=== PATIENT | female | born 1975 | race Caucasian/White ===

== ENCOUNTER 2021-12-02 11:29 | Emergency (ER) | payer SELFPAY ==
[2021-12-02 11:41] VITALS: BP 197/111; PULSE 84; RESP 18; TEMP 36.1; O2SAT 95; BMI 28.3
--- NOTE | 2021-12-02 12:10 | CT_ITS ---
Final Report Patient: KINGS ALVARADO Facility:?[facility] Patient ID:?[id number] Site Patient ID:?[id number]. Site :?[id number] Study:?CT Head W/O-12/02/2021 12:32:15 PM Ordering Physician:Claudia Hernandez Final Report: INDICATION: Worst headache of life. TECHNIQUE: CT head without contrast. COMPARISON: None. FINDINGS: CSF spaces: Within normal limits for age. Brain parenchyma and extra-axial spaces: The antunez-white differentiation is normal. No sign of mass, hemorrhage, or midline shift. No extra-axial fluid collection. Skull base and calvarium: The visualized paranasal sinuses and mastoid air cells demonstrate no acute or significant findings. The visualized orbits are grossly unremarkable. No skull fractures. IMPRESSION: Unremarkable noncontrast head CT. Please note that all CT scans at this facility use dose modulation, iterative reconstruction, and/or weight-based dosing when appropriate to reduce radiation dose to as low as reasonably achievable. Dictated by Emiliano Newman MD @ 12/02/2021 12:59:20 PM (Electronic Signature)
--- NOTE | 2021-12-02 12:16 | ED_ITS ---
HPI - General Adult General Time Seen by Provider: 12:16 Date Seen: 12/02/21 Chief complaint: Headache/Migraine Stated complaint: Headache, heart attack last week Time Seen by Provider: 12/02/21 11:52 Source: patient Mode of arrival: ambulatory Limitations: no limitations History of Present Illness HPI narrative: Merna is a 46-year-old female past medical history includes tobacco use, status post coronary angiography with stent placement last presents emerged department with with headache. Patient states that she presented to [facility] with chest pain, EKG is normal but serial troponins continued to be elevated. She was sent to [place], her blood pressures were elevated at that time, decision was to do an angiogram, she had 1 stent placed, blood pressures were controlled with Coreg, Imdur and Lisinopril. Patient states her headache started last Tuesday, she denied any headaches when her blood pressures were elevated in the hospital. Patient has not had any cigarettes for about a she would smoke 4-5 cigarettes a day, also had increased stress during the recent event. She denies any nausea vomiting, she denies any visual changes, any chest pain or shortness of breath,, headache is 8/10 constant, at times it improves, last night it progressively got worse throughout the day, she has not taken anything for it, denies any extremity weakness. Patient denies any headaches like this in the past. He does have some tingling and numbness in her left lower extremity but this is chronic due to her chronic lower back pain. Patient states her blood pressure was normal at home. She does have a history of hypothyroidism. Family history noncontributory. She denies any fevers, chills myalgias arthralgias, she denies any COVID exposure. Due to worsening headache presents emergency department. Related Data Home Medications Medication Instructions Recorded Confirmed aspirin 81 mg chewable tablet 81 mg PO DAILY 12/02/21 12/02/21 (Aspirin Childrens) atorvastatin 40 mg tablet 40 mg PO HS 12/02/21 12/02/21 carvedilol 6.25 mg tablet 6.25 mg PO BID 12/02/21 12/02/21 isosorbide mononitrate 30 mg 30 mg PO DAILY 12/02/21 12/02/21 tablet,extended release 24 hr levothyroxine 150 mcg capsule 150 mcg PO DAILY 12/02/21 12/02/21 lisinopril 20 mg tablet 10 mg PO BID 12/02/21 12/02/21 nitroglycerin 0.4 mg sublingual 0.4 mg SUBLINGUAL Q5-15M PRN 12/02/21 12/02/21 tablet ticagrelor 90 mg tablet (Brilinta) 90 mg PO BID 12/02/21 12/02/21 trazodone 100 mg tablet 50 mg PO HS 12/02/21 12/02/21 Allergies Allergy/AdvReac Type Severity Reaction Status Date / Time No Known Drug Allergies Allergy Verified 12/02/21 11:40 Review of Systems Status of ROS: Reports: 10 or more systems reviewed and unremarkable except as noted in History and below PFSH PFS Social History Smoking Status: Former smoker Do you use any of these nicotine containing products: None Second hand tobacco smoke exposure: No How often do you have a drink containing alcohol: never AUDIT-C Alcohol total score: 0 Non-prescribed substance use: denies use service: No Exam Const: Vital Signs, click to edit/add: Vital Signs - 24 hr 12/02/21 11:41 12/02/21 13:45 12/02/21 14:00 Temperature 97 F L Pulse Rate [Left P ulse Oximeter] 84 73 65 Respiratory Rate 18 16 16 Blood Pressure [Le ft Upper Arm] 197/111 H 178/106 H 164/97 H Pulse Oximetry 95 95 95 12/02/21 14:30 Temperature Pulse Rate [Left P ulse Oximeter] 72 Respiratory Rate 16 Blood Pressure [Le ft Upper Arm] 165/91 H Pulse Oximetry 97 Common normals: no apparent distress and oriented x3 Exam limitations: altered mental status General appearance: cooperative Orientation/consciousness: Yes awake, Yes oriented to person, Yes oriented to place and Yes oriented to time HENMT: Common normals: normocephalic, head/scalp atraumatic and hearing grossly normal bilaterally Head and scalp: normal to inspection, normocephalic and atraumatic Face and sinus: normal facial exam and face s ymmetric Throat: posterior oropharynx normal Eye: Common normals: PERRL, EOMs intact bilaterally, conjunctivae normal and normal visual zaragoza by confrontation General eye: normal appearance of both eyes Visual acuity: acuity normal Alignment: alignment normal Conjunctiva: conjunctiva(e) normal Pupil: PERRL Neck & C-Spine: Common normals: full ROM, no lymphadenopathy, supple, no JVD and thyroid normal Thyroid: thyroid normal Cervical spine: cervical ROM normal Lymph: Lymphatic: no lymphadenopathy noted Chest: Common normals: inspection of chest normal Resp: Common normals: normal respiratory effort, no retractions and clear to auscultation bilaterally Auscultation: clear to auscultation bilaterally Cardio: Common normals: no JVD, regular rate, regular rhythm, S1 normal heart sound, S2 normal heart sound and peripheral pulses 2+ throughout Rate: regular rate Rhythm: regular rhythm Heart sounds: S1 normal and S2 normal Peripheral pulses: pulses 2+ throughout GI: Common normals: Normal to inspection, nondistended, normoactive bowel sounds present, soft to palpation and non-tender Palpation: soft Extremity: Common normals: normal to inspection, full ROM and normal capillary refill Neuro: Stephens Coma Scale: document GCS findings Common normals: oriented x3, CN's II-XII intact bilaterally, moves all extremities, no focal motor deficits, no sensory deficits noted and gait normal Sensorium/orientation: awake, oriented to person, oriented to place and oriented to time Psych: Common normals: mental status grossly normal Course Course Hospital Course: AIDET performed. Vitals showed mildly elevated blood pressure, 149/129, no focal deficits on exam, less likely hypertensive emergency or urgency, work up will include EKG, CBC, CMP and CT head without contrast. To give Toradol once time dose of 15 mg and compazine 5 mg IV after imaging done, seems less related to her blood pressure. Differential diagnosis include life-threatening of subar achnoid hemorrhage, meningitis cerebral hemorrhage. Also consideration hypertension urgency or emergency, migraine, headache, cluster headache tension headache [employer] vasculitis, brain lesion, acute closed angle glaucoma, occipital or trigeminal neuralgia and sinusitis. Reevaluation(s) Reevaluation #1: patient updated on her imaging results. Patient to receive the above care. Time: 13:13 Reevaluation #2: Patient was updated on her imaging and lab, EKG, results. EKG showed a normal sinus rhythm bpm 84, no ectopy or acute ST changes. Pr provider. No acute findings, blood pressure continues to improve, headache has improved, will give her additional 5 mg IV Compazine. Time: 14:48 Reevaluation #3: Patient is feeling better after the above care given, blood pressure 167/91, headache has improved, tolerating orals without any difficulty, she has follow- up set up next Tuesday with her primary care provider. Reasons to return were given. All questions answered. Vital Signs Vital signs: Initial Vital Signs Temperature 97 F L 12/02/21 11:41 Temperature Source Temporal Artery Scan 12/02/21 11:41 Pulse Rate 84 12/02/21 11:41 Respiratory Rate 18 12/02/21 11:41 Blood Pressure 197/111 H 12/02/21 11:41 Blood Pressure Mean 139 12/02/21 11:41 Blood Pressure Position Sitting 12/02/21 11:41 Pulse Oximetry 95 12/02/21 11:41 Oxygen Delivery Method 12/02/21 11:41 Vital Signs Temperature 97 F L 12/02/21 11:41 Pulse Rate 84 12/02/21 11:41 Respiratory Rate 18 12/02/21 11:41 Blood Pressure 197/111 H 12/02/21 11:41 Pulse Oximetry 95 12/02/21 11:41 Temperature 97 F L 12/02/21 11:41 Pulse Rate 72 12/02/21 14:30 Respiratory Rate 16 12/02/21 14:30 Blood Pressure 165/91 H 12/02/21 14:30 Pulse Oximetry 97 12/02/21 14:30 Medical Decision Making Lab Data Labs: Lab Results 12/02/21 12/02/21 Range/Units 12:40 12:40 WBC 8.44 (4.50-11.00) K/uL RBC 3.45 L (4.00-5.20) m/uL Hgb 12.5 (12.0-16.0) gm/dL Hct 37.7 (33.0-51.0) % MCV 109 H (80-100) fL MCH 36 H (26-34) pg MCHC 33 (32-36) gm/dL RDW Coeff of Beth 14.4 (11.5-15.5) % Plt Count 338 (140-440) K/uL Neut % (Auto) 80.6 H (42.0-72.0) % Lymph % (Auto) 8.3 L (20-44) % Tompkins % (Auto) 9.2 (0.0-11.0) % Eos % (Auto) 1.1 (0.0-7.0) % Baso % (Auto) 0.4 (0.0-3.0) % Neut # (Auto) 6.80 (1.7-7.0) K/uL Lymph # (Auto) 0.70 L (0.90-2.90) K/uL Tompkins # (Auto) 0.80 (0.00-0.90) K/UL Eos # (Auto) 0.09 (0.00-0.50) K/uL Baso # (Auto) 0.03 (0.00-0.30) K/uL Abs Immat Gran (auto) 0.03 (0.00-0.30) K/uL Sodium 137 (135-149) mmol/L Potassium 3.4 L (3.6-5.1) mmol/L Chloride 103 (96-114) mmol/L Carbon Dioxide 28 (20-32) mmol/L BUN 6 (5-24) mg/dL Creatinine 0.6 (0.5-1.5) mg/dL Estimated Creat Clear 86.53 Glucose 121 H (60-115) mg/dL Calcium 9.0 (8.4-10.6) mg/dL Total Bilirubin 0.6 (0.1-1.5) mg/dL AST 25 (12-35) U/L ALT 16 (4-35) U/L Alkaline Phosphatase 107 (40-150) U/L Total Protein 6.9 (6.0-8.3) g/dL Albumin 4.1 (3.3-5.0) g/dL Imaging Data CT scan - head: Radiologist's impression: Unremarkable head CT. Discharge Plan Discharge Clinical Impression: Headache, Elevated blood pressure reading, H/O heart artery stent Patient Disposition: Home, Self-Care Condition: Improved Instructions: Acute Headache (ED) Additional Instructions: Take tylenol per bottle instructions for headache pain. Rest and hydrate. To follow as scheduled with primary next Tuesday. Return if worsening symptoms. Activity Level: No Restrictions Activity Detail: No change. Discharge Diet: Regular Prescriptions: No Action aspirin [Aspirin Childrens] 81 mg tablet,chewable 81 mg PO DAILY 0RF atorvastatin 40 mg tablet 40 mg PO HS 0RF Brilinta 90 mg tablet 90 mg PO BID 0RF carvedilol 6.25 mg tablet 6.25 mg PO BID 0RF Rx Instructions: must administer with a meal/food isosorbide mononitrate 30 mg tablet extended release 24 hr 30 mg PO DAILY 0RF nitroglycerin 0.4 mg tablet, sublingual 0.4 mg sublingual Q5-15M PRN0RF Rx Instructions: do not exceed 3 doses per episode lisinopril 20 mg tablet 10 mg PO BID 0RF levothyroxine 150 mcg capsule 150 mcg PO DAILY 0RF trazodone 100 mg tablet 50 mg PO HS 0RF Stand Alone Forms: [facility] Info Instructions
[2021-12-02 12:58] LABS: Slide Review Reflex No
[2021-12-02 12:59] LABS: Basophils Absolute Auto 0.03 K/uL (0.00-0.30); Basophils Percent Auto 0.4 % (0.0-3.0); Eosinophils Absolute Auto 0.09 K/uL (0.00-0.50); Eosinophils Percent Auto 1.1 % (0.0-7.0); Hematocrit 37.7 % (33.0-51.0); Hemoglobin* 12.5 gm/dL (12.0-16.0); Immature Granulocytes Abs Auto 0.03 K/uL (0.00-0.30); Lymphocytes Percent Auto 8.3 % (20-44); Mean Corpuscular HGB Conc 33 gm/dL (32-36); Mean Corpuscular Hemoglobin 36 pg (26-34); Mean Corpuscular Volume 109 fL (80-100); Monocytes Percent Auto 9.2 % (0.0-11.0); Neutrophils Percent Auto 80.6 % (42.0-72.0); Platelet Count* 338 K/uL (140-440); RDW Coefficient of Variation % 14.4 % (11.5-15.5); Red Blood Count 3.45 m/uL (4.00-5.20); White Blood Count* 8.44 K/uL (4.50-11.00)
[2021-12-02] MEDS: KETOROLAC 15 MG/ML inj IVP (13:08)
[2021-12-02 13:13] LABS: Albumin* 4.1 g/dL (3.3-5.0); Chloride* 103 mmol/L (96-114); Sodium* 137 mmol/L (135-149)
[2021-12-02] MEDS: PROCHLORPERAZINE 5 MG/ML VIAL IV ×2 (13:13→14:30)
[2021-12-02 13:14] LABS: Potassium* 3.4 mmol/L (3.6-5.1)
[2021-12-02 13:16] LABS: Alanine Aminotransferase* 16 U/L (4-35); Alkaline Phosphatase* 107 U/L (40-150); Aspartate Amino Transferase* 25 U/L (12-35); Bilirubin Total* 0.6 mg/dL (0.1-1.5); Blood Urea Nitrogen* 6 mg/dL (5-24); Carbon Dioxide* 28 mmol/L (20-32); Creatinine* 0.6 mg/dL (0.5-1.5); Est. Creatinine Clearance* 86.53; Estimated Glomerular Filt Rate 110.65; Glucose* 121 mg/dL (60-115); Total Protein* 6.9 g/dL (6.0-8.3)
[2021-12-02 13:45] VITALS: BP 178/106; PULSE 73; RESP 16; O2SAT 95
--- NOTE | 2021-12-02 13:48 | ED.NURSE ---
Patient up to restroom ambulatory, steady on feet. Continues to rate pain 6-12/13. BP 178/106. Dr. Cornejo notified.
[2021-12-02 14:00] VITALS: BP 164/97; PULSE 65; RESP 16; O2SAT 95
[2021-12-02 14:30] VITALS: BP 165/91; PULSE 72; RESP 16; O2SAT 97
== END 2021-12-02 15:01 | disposition home or self-care (01) ==
PROVIDERS: Emergency Provider Student in an Organized Health Care Education/Training Program
DX: R51.9 Headache, unspecified (principal); R03.0 Elevated blood-pressure reading, without diagnosis of hypertension
CPT/HCPCS: 96365; 96375; 96376; 36415; 70450; 80053; 85025; 93005; 99283; 99284; J0780; J1885

== ENCOUNTER 2022-06-02 14:21 | Emergency (ER) | payer OTHER, SELFPAY ==
[2022-06-02 14:31] VITALS: BP 191/111; PULSE 72; RESP 20; TEMP 36.8; O2SAT 98; BMI 28.8
--- NOTE | 2022-06-02 14:41 | ED_ITS ---
HPI - General Adult General Time Seen by Provider: 14:41 Date Seen: 06/02/22 Chief complaint: Extremity Pain/Injury, Lower Stated complaint: Foot Injury Time Seen by Provider: 06/02/22 14:32 Source: patient and RN notes reviewed Mode of arrival: ambulatory Limitations: no limitations History of Present Illness HPI narrative: Patient is coming in with left foot/ankle pain. On she had her left leg underneath her, foot had fallen asleep. She got up and stepped down and had some pain. It is hurting to walk more on the outside of the ankle and the foot area. She can walk on it but again there was pain. No numbness tingling. She has noted bruising. Related Data Home Medications Medication Instructions Recorded Confirmed aspirin 81 mg chewable tablet 81 mg PO DAILY 12/02/21 12/02/21 (Aspirin Childrens) atorvastatin 40 mg tablet 40 mg PO HS 12/02/21 12/02/21 carvedilol 6.25 mg tablet 6.25 mg PO BID 12/02/21 12/02/21 isosorbide mononitrate 30 mg 30 mg PO DAILY 12/02/21 12/02/21 tablet,extended release 24 hr levothyroxine 150 mcg capsule 150 mcg PO DAILY 12/02/21 12/02/21 lisinopril 20 mg tablet 10 mg PO BID 12/02/21 12/02/21 nitroglycerin 0.4 mg sublingual 0.4 mg sublingual Q5-15M PRN 12/02/21 12/02/21 tablet ticagrelor 90 mg tablet (Brilinta) 90 mg PO BID 12/02/21 12/02/21 trazodone 100 mg tablet 50 mg PO HS 12/02/21 12/02/21 Allergies Allergy/AdvReac Type Severity Reaction Status Date / Time No Known Drug Allergies Allergy Verified 06/02/22 14:30 Review of Systems Narrative: As per HPI PFSH PFSH Social History Smoking Status: Former smoker Do you use any of these nicotine containing products: None Second hand tobacco smoke exposure: No How often do you have a drink containing alcohol: never AUDIT-C Alcohol total score: 0 Non-prescribed substance use: denies use service: No Exam Const: Vital Signs, click to edit/add: Vital Signs - 24 hr 06/02/22 14:31 06/02/22 14:45 06/02/22 15:40 Temperature 98.2 F Pulse Rate [Pulse Oximeter] 72 73 Respiratory Rate 20 Blood Pressure [Le ft Upper Arm] 191/111 H 169/89 H 198/121 H Pulse Oximetry 98 95 Oxygen Delivery Me thod Room Air Room Air Documenting provider has reviewed patient's vital signs: yes Common normals: no apparent distress, average body habitus, oriented x3, no limitations, healthy appearing, alert and well nourished Other: Patient has obvious ecchymosis around the base of the heel medial and laterally. Her Achilles is intact and has reflex with squeezing of the calf. She is nontender over the medial malleolus as well as the 5th metatarsal. She has pain over the distal lateral malleolus. Ankle mortise is intact, she has a good peripheral pulse, normal distal sensation. Neuro: Common normals: oriented x3 Sensorium/orientation: alert Course Course Hospital Course: Will obtain left ankle x-ray. Reevaluation(s) Reevaluation #1: Reviewed with patient no acute fracture. Reviewed management options. We will try the gel splint. She will do a physical therapy referral. Time: 17:00 Vital Signs Vital signs: Initial Vital Signs Temperature 98.2 F 06/02/22 14:31 Temperature Source Temporal Artery Scan 06/02/22 14:31 Pulse Rate 72 06/02/22 14:31 Pulse Rhythm 06/02/22 14:31 Respiratory Rate 20 06/02/22 14:31 Blood Pressure 191/111 H 06/02/22 14:31 Blood Pressure Mean 137 06/02/22 14:31 Blood Pressure Position Supine 06/02/22 14:31 Pulse Oximetry 98 06/02/22 14:31 Oxygen Delivery Method 06/02/22 14:31 Vital Signs Temperature 98.2 F 06/02/22 14:31 Pulse Rate 72 06/02/22 14:31 Respiratory Rate 20 06/02/22 14:31 Blood Pressure 191/111 H 06/02/22 14:31 Pulse Oximetry 98 06/02/22 14:31 Oxygen Delivery Method 06/02/22 14:31 Temperature 98.2 F 06/02/22 14:31 Pulse Rate 73 06/02/22 15:40 Respiratory Rate 20 06/02/22 14:31 Blood Pressure 198/121 H 06/02/22 15:40 Pulse Oximetry 95 06/02/22 15:40 Oxygen Delivery Method 06/02/22 15:40 Medical Decision Making Imaging Data X-ray left ankle: Attestation: I have reviewed the pertinent imaging results. My impression: I do not see any acute fracture on my preliminary review. Radiologist's impression: Patient: KINGS ALVARADO Facility:?[facility] Patient ID:?[id number] Site Patient ID:?[id number]. Site :?[id number] Study:?XRay Extremity Left ANKLE 3 VIEW-06/02/2022 3:08:06 PM Ordering Physician:?Batsheva Tidwell Final Report: Indication: Lateral ankle pain. Technique: Left ankle 3 views. Comparison: None. Findings: Bones: No acute fracture. Normal alignment. No aggressive osseous lesion.. Joint spaces: Unremarkable. Soft tissues: Soft tissue swelling about the ankle, particularly the lateral malleolus. Impression: Soft tissue swelling about the ankle, particularly the lateral malleolus. No acute fracture. Dictated by Reginald Hinton MD @ 06/02/2022 4:03:29 PM (Electronic Signature) Critical Care Time Critical Care Time Critical Care Time: No Discharge Plan Discharge Clinical Impression: Sprain of lateral ligament of ankle joint Condition: Stable Instructions: Ankle Sprain (ED) Additional Instructions: Use splint as needed for comfort. Do recommend elevating and icing this ankle for the next 3-5 days, until you see the bruising and swelling resolving. Can use light Mario wrap for compression as well. Have provided a referral for physical therapy for you, do recommend this. If you are not improving over the next few weeks with these conservative modalities, have concerns of increased pain with weight-bearing, do recommend further evaluation with Orthopedics, can be referred from your primary care provider. Activity Level: Activity as Tolerated Prescriptions: No Action aspirin [Aspirin Childrens] 81 mg tablet,chewable 81 mg PO DAILY atorvastatin 40 mg tablet 40 mg PO HS Brilinta 90 mg tablet 90 mg PO BID carvedilol 6.25 mg tablet 6.25 mg PO BID Rx Instructions: must administer with a meal/food isosorbide mononitrate 30 mg tablet extended release 24 hr 30 mg PO DAILY nitroglycerin 0.4 mg tablet, sublingual 0.4 mg sublingual Q5-15M PRN Rx Instructions: do not exceed 3 doses per episode lisinopril 20 mg tablet 10 mg PO BID levothyroxine 150 mcg capsule 150 mcg PO DAILY trazodone 100 mg tablet 50 mg PO HS Follow Up/Referrals: Provider,Not a Local [Primary Care Provider] - Stand Alone Forms: [facility] Info Instructions
[2022-06-02 14:45] VITALS: BP 169/89
--- NOTE | 2022-06-02 14:48 | CRLHL7_ITS ---
For Patients: As a result of the Century Cures Act, medical imaging exams and procedure reports are released immediately into your electronic medical record. You may view this report before your referring provider. If you have questions, please contact your health care provider. Indication: Lateral ankle pain. Technique: Left ankle 3 views. Comparison: None. Findings: Bones: No acute fracture. Normal alignment. No aggressive osseous lesion.. Joint spaces: Unremarkable. Soft tissues: Soft tissue swelling about the ankle, particularly the lateral malleolus. Impression: Soft tissue swelling about the ankle, particularly the lateral malleolus. No acute fracture. Dictated by Reginald Hinton MD @ 06/02/2022 4:03:29 PM (Electronically Signed)
[2022-06-02 15:40] VITALS: BP 198/121; PULSE 73; O2SAT 95
== END 2022-06-02 17:20 | disposition home or self-care (01) ==
PROVIDERS: Emergency Provider Family Medicine
DX: S93.492A Sprain of other ligament of left ankle, initial encounter (principal); X58.XXXA Exposure to other specified factors, initial encounter; Y93.9 Activity, unspecified; Y92.9 Unspecified place or not applicable; Y99.9 Unspecified external cause status
CPT/HCPCS: 73610; 99283

== ENCOUNTER 2022-06-21 22:34 | Emergency (ER) | payer OTHER, SELFPAY ==
[2022-06-21] VITALS (9 sets, daily range): BP systolic 169–220; BP diastolic 89–144; PULSE 54–78; RESP 16–18; TEMP 36.9; O2SAT 94–99; BMI 30.2
--- NOTE | 2022-06-21 23:04 | ED.GENADULT ---
HPI - General Adult General Chief complaint: Neck Injury/Pain Stated complaint: Chest Tightness,Left Side Pain in Neck Time Seen by Provider: 06/21/22 22:35 History of Present Illness HPI narrative: This 46-year-old female comes in reporting some left-sided neck pain that goes down into her shoulder and into her arm. She also has some slight chest discomfort. These symptoms started yesterday. She states that the symptoms seem to come and go. It is not related to exertion or strenuous activity. She denies having any nausea, vomiting, shortness of breath, or diaphoresis. She states that she had 2 stents placed about 6 months ago and since then has not had any symptoms. Her symptoms today seem a little similar but also different compared to the coronary arteries symptoms that she had about 6 months ago. She is taking her medications as prescribed. She did take a baby aspirin this morning. She took a nitroglycerin tablet last night and states that it did not seem to help her symptoms. Related Data Home Medications Medication Instructions Recorded Confirmed aspirin 81 mg chewable tablet 81 mg PO DAILY 12/02/21 06/21/22 (Aspirin Childrens) atorvastatin 40 mg tablet 40 mg PO HS 12/02/21 06/21/22 levothyroxine 150 mcg capsule 150 mcg PO DAILY 12/02/21 06/21/22 lisinopril 20 mg tablet 10 mg PO BID 12/02/21 06/21/22 nitroglycerin 0.4 mg sublingual 0.4 mg sublingual Q5-15M PRN 12/02/21 06/21/22 tablet carvedilol 12.5 mg tablet 12.5 mg PO BID 06/21/22 06/21/22 Previous Rx's Medication Instructions Recorded methylprednisolone 4 mg tablets in See Rx Instructions PO .COMPLEX 06/21/22 a dose pack (Medrol (Joaquim)) #21 ea Allergies Allergy/AdvReac Type Severity Reaction Status Date / Time No Known Drug Allergies Allergy Verified 06/21/22 22:47 Review of Systems Status of ROS: Reports: 10 or more systems reviewed and unremarkable except as noted in History and below Narrative: Constitutional: No fevers, no weight gain or loss. Eyes: No discharge. No vision changes. HENT: No congestion, no sore throat, no ear pain. Cardiovascular: No palpitations. Chest discomfort but more pronounced in the left neck and down into the left arm. Respiratory: No shortness of breath, no wheezes, no cough. Gastrointestinal: No abdominal pain, no vomiting, no diarrhea. Genitourinary: No dysuria, no hematuria. Musculoskeletal: Normal range of motion. Skin: No rashes, no pruritis. Neurological: No dizziness, weakness, sensory change, speech change. Endo/Heme/Allergies: No bruising or bleeding. No polydipsia. Pysch: no suicidality, no anxiety, no insomnia. All other systems reviewed and are negative. [facility] Medical History (Updated 06/21/22 @ 23:48 by Vasiliy Sung MD) Erosion of transobturator mid-urethral sling Surgical History (Updated 06/21/22 @ 23:04 by Tani Reynolds RN) History of cholecystectomy History of tubal ligation Social History Smoking Status: Current every day smoker Do you use any of these nicotine containing products: None Second hand tobacco smoke exposure: No How often do you have a drink containing alcohol: never How often do you have six or more drinks on one occasion: Never AUDIT-C Alcohol total score: 0 Non-prescribed substance use: denies use service: No Exam Narrative: Exam Narrative: Constitutional: Well-developed, well-nourished, no acute distress. HEENT: Normocephalic, atraumatic. Neck: Normal range of motion. Nontender. Supple. Heart: Regular. No murmurs. Normal rate. Intact distal pulses. Lungs: Clear to auscultation. No chest discomfort. No wheezes, rhonchi, or rales. Abdomen: Normal bowel sounds. Nontender. No rebound tenderness. Genitalia: Deferred. Back: No midline tenderness. Normal range of motion. Extremities: Normal range of motion. No injury. Skin: Intact. No rash. Warm. No erythema or pallor. Neurologic: No altered sensation. No weakness. Alert and oriented. Spurling's test is positive when extending her head and rotating to the left there is pain and tingling going down her arm. Psychiatric: No suicidality. No anxiety or depression. No insomnia. Nursing notes and vitals signs are reviewed. Const: Vital Signs, click to edit/add: Vital Signs - 24 hr 06/21/22 22:43 06/21/22 23:00 06/21/22 23:12 Temperature 98.5 F Pulse Rate Pulse Rate [Right Pulse Oximeter] 78 63 Respiratory Rate 18 16 Blood Pressure Blood Pressure [Ri ght Upper Arm] 220/144 H 215/108 H Pulse Oximetry 99 95 95 Oxygen Delivery Me thod Room Air Room Air 06/21/22 23:17 06/21/22 23:20 06/21/22 23:22 Temperature Pulse Rate 66 59 L 64 Pulse Rate [Right Pulse Oximeter] Respiratory Rate Blood Pressure 169/89 H Blood Pressure [Ri ght Upper Arm] Pulse Oximetry 95 94 96 Oxygen Delivery Me thod 06/21/22 23:23 06/21/22 23:40 06/21/22 23:42 Temperature Pulse Rate 62 54 L 55 L Pulse Rate [Right Pulse Oximeter] Respiratory Rate Blood Pressure 177/98 H Blood Pressure [Ri ght Upper Arm] Pulse Oximetry 94 95 94 Oxygen Delivery Me thod Course Vital Signs Vital signs: Initial Vital Signs Temperature 98.5 F 06/21/22 22:43 Temperature Source Temporal Artery Scan 06/21/22 22:43 Pulse Rate 78 06/21/22 22:43 Respiratory Rate 18 06/21/22 22:43 Blood Pressure 220/144 H 06/21/22 22:43 Blood Pressure Mean 169 06/21/22 22:43 Blood Pressure Position Sitting 06/21/22 22:43 Pulse Oximetry 99 06/21/22 22:43 Oxygen Delivery Method 06/21/22 22:43 Vital Signs Temperature 98.5 F 06/21/22 22:43 Pulse Rate 78 06/21/22 22:43 Respiratory Rate 18 06/21/22 22:43 Blood Pressure 220/144 H 06/21/22 22:43 Pulse Oximetry 99 06/21/22 22:43 Oxygen Delivery Method 06/21/22 22:43 Temperature 98.5 F 06/21/22 22:43 Pulse Rate 55 L 06/21/22 23:42 Respiratory Rate 16 06/21/22 23:12 Blood Pressure 177/98 H 06/21/22 23:42 Pulse Oximetry 94 06/21/22 23:42 Oxygen Delivery Method 06/21/22 23:12 Medical Decision Making MDM Narrative Medical decision making narrative: This patient comes in reporting left-sided neck pain radiating down her left arm. She has a history of coronary artery disease and did have a couple stents placed about 6 months ago. She has been doing well since then. She comes in with concern that she may be having some further event with her heart. Her EKG and lab results all returned with normal findings. She does not have typical associated symptoms suggesting coronary artery syndrome. Her Spurling's test is suggestive of a cervical radiculopathy with pain radiating down into her arm. She is okay to return home and did receive a prescription for Medrol Dosepak. She was reassured to see the normal results in her lab studies and EKG. Lab Data Labs: Lab Results 06/21/22 06/21/22 06/21/22 Range/Units 23:00 23:00 23:02 WBC 9.10 (4.50-11.00) K/uL RBC 4.01 (4.00-5.20) m/uL Hgb 13.1 (12.0-16.0) gm/dL Hct 39.7 (33.0-51.0) % MCV 99 (80-100) fL MCH 33 (26-34) pg MCHC 33 (32-36) gm/dL RDW Coeff of Beth 13.2 (11.5-15.5) % Plt Count 254 (140-440) K/uL Neut % (Auto) 67.6 (42.0-72.0) % Lymph % (Auto) 21.5 (20-44) % Gillespie % (Auto) 9.6 (0.0-11.0) % Eos % (Auto) 0.9 (0.0-7.0) % Baso % (Auto) 0.3 (0.0-3.0) % Neut # (Auto) 6.15 (1.7-7.0) K/uL Lymph # (Auto) 1.96 (0.90-2.90) K/uL Gillespie # (Auto) 0.90 (0.00-0.90) K/UL Eos # (Auto) 0.08 (0.00-0.50) K/uL Baso # (Auto) 0.03 (0.00-0.30) K/uL Sodium 136 (135-149) mmol/L Potassium 3.9 (3.6-5.1) mmol/L Chloride 103 (96-114) mmol/L Carbon Dioxide 27 (20-32) mmol/L BUN 15 (5-24) mg/dL Creatinine 1.0 (0.5-1.5) mg/dL Estimated Creat Clear 51.92 Estimated GFR 69 ml/min Calcium 9.0 (8.4-10.6) mg/dL POC Troponin I 0.01 (0.01-0.04) ng/ml ECG Data Attestation: I personally reviewed and interpreted this ECG as follows: Interpretation: Normal sinus rhythm. Rate is 65 beats per minute. There are no ST or T-wave abnormalities. Discharge Plan Discharge Clinical Impression: Cervical radiculopathy Patient Disposition: Home, Self-Care Condition: Stable Additional Instructions: Take medication as prescribed. Follow up with MD or return if worsening. Prescriptions: New methylprednisolone [Medrol (Joaquim)] 4 mg tablets,dose pack See Rx Instructions .ROUTE .COMPLEX Qty: 21 0RF Rx Instructions: orally per package directions No Action carvedilol 12.5 mg tablet 12.5 mg PO BID aspirin [Aspirin Childrens] 81 mg tablet,chewable 81 mg PO DAILY atorvastatin 40 mg tablet 40 mg PO HS nitroglycerin 0.4 mg tablet, sublingual 0.4 mg sublingual Q5-15M PRN Rx Instructions: do not exceed 3 doses per episode lisinopril 20 mg tablet 10 mg PO BID levothyroxine 150 mcg capsule 150 mcg PO DAILY Follow Up/Referrals: Blu Ray PA-C [Primary Care Provider] - Stand Alone Forms: [employer] Info Instructions
[2022-06-21] MEDS: ASPIRIN 81 MG TAB.CHEW 324 MG PO (23:10)
[2022-06-21 23:12] LABS: Basophils Absolute Auto 0.03 K/uL (0.00-0.30); Basophils Percent Auto 0.3 % (0.0-3.0); Eosinophils Absolute Auto 0.08 K/uL (0.00-0.50); Eosinophils Percent Auto 0.9 % (0.0-7.0); Hematocrit 39.7 % (33.0-51.0); Hemoglobin* 13.1 gm/dL (12.0-16.0); Immature Granulocytes Abs Auto 0.01 K/uL (0.00-0.30); Immature Granulocytes Pct Auto 0.1 %; Lymphocytes Absolute Auto 1.96 K/uL (0.90-2.90); Lymphocytes Percent Auto 21.5 % (20-44); Mean Corpuscular HGB Conc 33 gm/dL (32-36); Mean Corpuscular Hemoglobin 33 pg (26-34); Mean Corpuscular Volume 99 fL (80-100); Monocytes Percent Auto 9.6 % (0.0-11.0); Neutrophils Absolute Auto 6.15 K/uL (1.7-7.0); Neutrophils Percent Auto 67.6 % (42.0-72.0); Platelet Count* 254 K/uL (140-440); RDW Coefficient of Variation % 13.2 % (11.5-15.5); Red Blood Count 4.01 m/uL (4.00-5.20)
[2022-06-21 23:16] LABS: Troponin, Point-of-Care* 0.01 ng/ml (0.01-0.04)
[2022-06-21 23:25] LABS: Chloride* 103 mmol/L (96-114); Potassium* 3.9 mmol/L (3.6-5.1); Sodium* 136 mmol/L (135-149)
[2022-06-21 23:28] LABS: Blood Urea Nitrogen* 15 mg/dL (5-24); Carbon Dioxide* 27 mmol/L (20-32); Est. Creatinine Clearance* 51.92; Estimated Glomerular Filt Rate 69 ml/min
[2022-06-21 23:39] LABS: Glucose* 106 mg/dL (60-115)
[2022-06-21 23:40] LABS: Slide Review Reflex No
== END 2022-06-21 23:58 | disposition home or self-care (01) ==
PROVIDERS: Emergency Provider Emergency Medicine Emergency Medical Services; PCP Physician Assistant
DX: M54.12 Radiculopathy, cervical region (principal)
CPT/HCPCS: 36415; 80048; 84484; 85025; 93005; 94761; 99284; 99285; A9270

== ENCOUNTER 2024-04-30 09:40 | Emergency (ER) | payer OTHER, SELFPAY ==
[2024-04-30] VITALS (7 sets, daily range): BP systolic 147–173; BP diastolic 97–122; PULSE 46–77; RESP 20–22; TEMP 35.6; O2SAT 96–100; BMI 26.1
--- NOTE | 2024-04-30 10:31 | ED_ITS ---
HPI - General Adult General Chief complaint: Shortness of Breath/Dyspnea Stated complaint: Trouble breathing, had prior heart attack Time Seen by Provider: 04/30/24 10:15 Source: patient Mode of arrival: ambulatory Limitations: no limitations History of Present Illness HPI narrative: 48-year-old female coming in today complaining of back pain. She states that she was at her computer working today when she turned to the side and felt a pop in her mid left back. She states that it is very painful now and it is hard to take deep breaths. She denies central chest pain. She denies any recent illness, no coughing or fevers. Patient is concerned she is having a heart attack. Did have a heart attack in 2021, felt different at that time. The patient states that she has quit smoking. Patient states that she had 3 cortisone injections last week: 1 in her lower back and two in her hips. Related Data Home Medications ?Medication ?Instructions ?Recorded ?Confirmed aspirin 81 mg chewable tablet 81 mg PO DAILY 12/02/21 04/30/24 (Aspirin Childrens) atorvastatin 40 mg tablet 40 mg PO HS 12/02/21 04/30/24 levothyroxine 150 mcg capsule 150 mcg PO DAILY 12/02/21 04/30/24 lisinopril 20 mg tablet 10 mg PO BID 12/02/21 04/30/24 nitroglycerin 0.4 mg sublingual 0.4 mg sublingual Q5-15M PRN 12/02/21 06/21/22 tablet carvedilol 12.5 mg tablet 12.5 mg PO BID 06/21/22 04/30/24 trazodone 100 mg tablet 100 mg PO QPM 04/30/24 04/30/24 Previous Rx's ?Medication ?Instructions ?Recorded methylprednisolone 4 mg tablets in See Rx Instructions PO .COMPLEX 06/21/22 a dose pack (Medrol (Joaquim)) #21 ea Allergies Allergy/AdvReac Type Severity Reaction Status Date / Time No Known Drug Allergies Allergy Verified 04/30/24 10:03 Review of Systems Status of ROS: Reports: 10 or more systems reviewed and unremarkable except as noted in History and below [facility] Medical History Erosion of transobturator mid-urethral sling ?T83.712A - Erosion of implanted urethral mesh to surrounding organ or tissue, initial encounter (ICD-10) Surgical History History of cholecystectomy ?Z90.49 - Acquired absence of other specified parts of digestive tract (ICD- 10) History of tubal ligation ?Z98.51 - Tubal ligation status (ICD-10) Social History Smoking Status: Former smoker Do you use any of these nicotine containing products: None Second hand tobacco smoke exposure: No How often do you have a drink containing alcohol: never How often do you have six or more drinks on one occasion: Never AUDIT-C Alcohol total score: 0 Non-prescribed substance use: denies use service: No Exam Narrative: Exam Narrative: Well-nourished well-developed patient in no acute distress but appears unc omfortable. Alert and oriented. Answers questions appropriately. Mood and affect are appropriate. Thoughts are goal oriented and rational. No tangential or magical thinking noted. Patient speaks in full sentences without needing to catch her breath. HEENT: Normocephalic atraumatic. Pupils are equally round reactive to light. Extraocular muscles are intact. Conjunctivae are moist without any icterus noted. Moist mucous membranes. Neck is supple. Cardiovascular: Heart is regular rate and rhythm S1 and S2 are present without any murmurs. Lungs: Clear to auscultation bilaterally no wheezes rhonchi or rales are appreciated. Deep breathing causes discomfort in the left mid back. No tenderness to palpation of the anterior chest wall. Abdomen: Soft and nontender nondistended with normal bowel sounds. Extremities: Bilateral lower extremities are without edema. Skin: Warm, dry, intact. Back: Normal appearance. No obvious swelling, erythema. No pain with palpation of the cervical, thoracic or lumbar spine. She has tenderness on the left paraspinal musculature of the thoracic spine. No point tenderness over the ribs. Const: Vital Signs, click to edit/add: Vital Signs - 24 hr 04/30/24 09:56 04/30/24 10:30 04/30/24 10:47 Temperature 96.0 F L Pulse Rate 73 Pulse Rate [Pulse Oximeter] 77 48 L Respiratory Rate 22 20 Blood Pressure [Le ft Upper Arm] 173/122 H 150/104 H Pulse Oximetry 98 99 100 Oxygen Delivery Me thod Room Air Room Air Course Course ED Course: Because of her concerns about having a heart attack in EKG was done in triage, read by me, shows normal sinus rhythm with arrhythmia and a pulse of 70. Discussed with the patient that it does not appear that she is having a heart attack. Given her history and physical examination today it seems like she is likely having musculoskeletal pain of the back secondary to a back spasm. Toradol 60 mg IM given in the ED today. This did take the edge off her pain and she did have some relief. Vital Signs Vital signs: Initial Vital Signs Respiratory Effort Normal 04/30/24 09:43 Respiratory Depth Normal 04/30/24 09:43 Respiratory Pattern Normal 04/30/24 09:43 Vital Signs Temperature 96.0 F L 04/30/24 09:56 Pulse Rate 77 04/30/24 09:56 Respiratory Rate 22 04/30/24 09:56 Blood Pressure 173/122 H 04/30/24 09:56 Pulse Oximetry 98 04/30/24 09:56 Oxygen Delivery Method Room Air 04/30/24 09:56 Temperature 96.0 F L 04/30/24 09:56 Pulse Rate 73 04/30/24 10:47 Respiratory Rate 20 04/30/24 10:30 Blood Pressure 150/104 H 04/30/24 10:30 Pulse Oximetry 100 04/30/24 10:47 Oxygen Delivery Method Room Air 04/30/24 10:30 Medications Administered Medications: Discontinued Medications Generic Name Dose Route Start Last Admin Trade Name Freq PRN Reason Stop Dose Admin Ketorolac Tromethamine 60 mg 04/30/24 10:24 04/30/24 10:41 Ketorolac 30 Mg/Ml Inj IM 04/30/24 10:25 60 mg ONCE ONE Administration Medical Decision Making MDM Narrative Medical decision making narrative: 48-year-old female with mid back pain, appears to be musculoskeletal in nature. We discussed symptomatic treatment with heat, Tylenol, gentle stretching. Discharge Plan Discharge Clinical Impression: Musculoskeletal back pain Additional Instructions: Okay to use Tylenol as needed/as instructed. Okay to use a heating pad to the back as needed. Do not use for more than 20 minutes at a time and do not apply heat directly to the skin. Recommend gentle stretching and gentle movement throughout the day. Follow-up with primary care provider in approximately 1 week. Prescriptions: No Action carvedilol 12.5 mg tablet 12.5 mg PO BID methylprednisolone [Medrol (Joaquim)] 4 mg tablets,dose pack See Rx Instructions .ROUTE .COMPLEX Qty: 21 0RF Rx Instructions: orally per package directions trazodone 100 mg tablet 100 mg PO QPM aspirin [Aspirin Childrens] 81 mg tablet,chewable 81 mg PO DAILY atorvastatin 40 mg tablet 40 mg PO HS nitroglycerin 0.4 mg tablet, sublingual 0.4 mg sublingual Q5-15M PRN Rx Instructions: do not exceed 3 doses per episode lisinopril 20 mg tablet 10 mg PO BID levothyroxine 150 mcg capsule 150 mcg PO DAILY Follow Up/Referrals: Blu Ray PA-C [Primary Care Provider] - Stand Alone Forms: [employer] Info Instructions
[2024-04-30] MEDS: KETOROLAC 30 MG/ML inj 60 MG IM (10:41)
--- OUTSIDE RECORDS SUMMARY | 2024-04-30 11:18 | XMS_ITS ---
Author Organization [facility] Address [address] [place] [address] Care Team Providers Care Habitat Management Coordinator Name Role Phone Unavailable Unavailable Unavailable Surgery Details Not on file Complications Check Surgery Details section. Procedure Estimated Blood Loss Check Surgery Details section. Procedure Findings Check Surgery Details section. Procedure Specimens Taken Check Surgery Details section.
--- OUTSIDE RECORDS SUMMARY | 2024-04-30 11:18 | XMS_ITS | Encounter Summary ---
Author Organization [facility] Address [address] [place] [id number] Care Team Providers Care Embossograph Operator Name Role Phone Blu Ray P.A.-C. Primary Care Provider Reason for Visit * Outpatient (Routine) - Closed Specialty Diagnoses / Procedures Referred By Porfirio rutledge Referred To Contact Diagnoses Bursitis Trochanteric Bilateral Procedures PM Soft Tissue injection Bilateral Reed Rodriguez, STACY, C.N.P., M.S.N. [address] [place] [phone] Phone: tel: fax: [facility] Referral ID Status Reason Start Date Expiration Date Visits Re quested Visits Authorized [id number] Closed 04/13/2024 04/13/2025 1 1 Encounter Details Date Type Department Care Team (Latest Contact Info) Description 04/18/2024 3:00 PM MILL OPERATOR HEAD Procedure visit Division of Pain Medicine in [place], [place] [address] [place] [phone] Kota Mars M.D. [address] [place] [phone] Bursitis Trochanteric Bilateral Social History Tobacco Use Types Packs/Day Years Used Date Smoking Tobacco: Former Cigarettes 0.5 30.5 S tarted: 12/18/2021 Smokeless Tobacco: Never Alcohol Use Standard Drinks/Week Comments Yes 1 (1 standard drink = 0.6 oz pur e alcohol) Social Connection and Isolation Panel [NHANES] A nswer Date Recorded In a typical week, how many times do you talk on the phone with family, friends, or neighbors? Three times a week 12/10/19 How often do you get togethe r with friends or relatives? Twice a week 12/09/2021 How often do you attend chur ch or jewish services? Patient declined 12/09/2021 Do you belong to any clubs o r organizations such as baptist groups, unions, fraternal or athletic groups, or school groups? No 12/09/2021 How often do you attend meet ings of the clubs or organizations you belong to? Patient declined 12/09/2021 Are you , , di vorced, , never , or living with a partner? Living with partner 12/09/2021 AUDIT-C Answer Date Recorded Q1: How often do you have a drink containing alc ohol? 2-4 times a month 12/09/2021 Q2: How many drinks containi ng alcohol do you have on a typical day when you are drinking? 1 or 2 12/09/2021 Q3: How often do you have si x or more drinks on one occasion? Never 12/09/2021 Overall Financial Resource Strain (CARDIA) Answe r Date Recorded How hard is it for you to pa y for the very basics like food, housing, medical care, and heating? Not very hard 12/09/2021 PHQ-2 Answer Date Recorded PHQ-2 Score 0 12/01/2023 [employer] [facility] - Occupational Stress Questionnaire Answer Date Recorded Do you feel stress - tense, restless, nervous, or anxious, or unable to sleep at night because your mind is troubled all the time - these days? To some extent 12/09/2021 Exercise Vital Sign Answer Date Recorde d On average, how many days pe r week do you engage in moderate to strenuous exercise (like a brisk walk)? 0 days Minutes of Exercise per Session Not on file 12/09/2021 Hunger Vital Sign Answer Date Recorded Within the past 12 months, y ou worried that your food would run out before you got the money to buy more. Never true 12/10/19 22 Within the past 12 months, t he food you bought just didn't last and you didn't have money to get more. Never true 12/09/2021 PRAPARE - Transportation Answer Date Re corded In the past 12 months, has l ack of transportation kept you from medical appointments or from getting medications? No 11/2021 In the past 12 months, has l ack of transportation kept you from meetings, work, or from getting things needed for daily living? No 12/09/2021 Housing Stability Vital Sign Answer Dontae e Recorded In the last 12 months, was t here a time when you were not able to pay the mortgage or rent on time? No 12/09/2021 Number of Places Lived in the Last Year Not on f ile 12/09/2021 In the last 12 months, was t here a time when you did not have a steady place to sleep or slept in a group home (including now)? No 12/09/2021 Nutrition Answer Date Recorded On average, how many serving s of fruits and vegetables do you eat per day (serving size is equal to 1 cup or approximately the size of a tennis ball)? 0-1 12/09/2021 Dental Answer Date Recorded Dental: Regular Dentist No 12/10/19 22 Employment Answer Date Recorded Employment status Employed and actively working without restrictions 12/09/2021 Education Answer Date Recorded What is the highest level of school you have completed or the highest degree you have received? 12th grade 12/09/2021 Comments No Sex and Gender Information Value Date Recorded Sex Assigned at Not on file Legal Sex Female 1:43 PM MILL OPERATOR HEAD Gender Identity Not on file Sexual Orientation Not on file documented as of this encounter Procedure Notes * Kota Mars M.D. - 04/18/2024 3:00 PM CSTAssociated Order(s): PM Soft Tissue injection Bilateral Pre-Procedure Diagnose(s): Bursitis Trochanteric Bilateral Post-Procedure Diagnose(s): Bursitis Trochanteric Bilateral PM Soft Tissue injection Bilateral Performed by: Kota Mars M.D. Authorized by: Reed Rodriguez, STACY, C.N.P., M.S.N. PROCEDURE SUMMARY Pre procedure pain score: 9/10 Post procedure pain score: 5/10 Site: Left greater trochanteric bursa and Right greater trochanteric bursa Needle size: 25 G Needle length: 2.5 in INJECTED MEDICATIONS Injected medications: The injected medication(s) listed was divided equally between the identified injection location(s) Total volume of injectate (mL): 10 Total steroid in injectate (mg): 40 9 mL BUPivacaine 0.5 % (5 mg/mL) 40 mg triamcinolone acetonide 40 mg/mL PROCEDURE DETAILS Greater trochanteric bursa description: The patient was brought to the procedure suite and placed in the appropriate position. Prior to the procedure, the appropriate trochanteric bursal region was examined to determine the optimal needle path. Thereafter, a needle was advanced into the peritrochanteric bursa and after negative aspiration, the medication was injected. Following the injection, theneedle was withdrawn. The patient tolerated the procedure well and there were no apparent complications. After an appropriate amount of observation, the patient was dismissed from the clinic in good condition under their own power. Complications: no apparent complications ADDITIONAL PROCEDURE COMMENTS Greater trochanteric bursa description: The patient was brought to the procedure suite and placed in the appropriate position. Prior to the procedure, the appropriate trochanteric bursal region was examined to determine the optimal needle path. Thereafter, a needle was advanced into the peritrochanteric bursa and after negative aspiration, the medication was injected. Following the injection, theneedle was withdrawn. The process was then repeated on the contralateral location. The patient tolerated the procedure well and there were no apparent complications. After an appropriate amount of observation, the patient was dismissed from the clinic in good condition under their own power. The patient reported a history of bilateral lateral hip pain that appears to be due to greater trochanteric pain syndrome. I confirmed on exam that her area of tenderness was over her greater trochanters. I discussed the risks and benefits and she wished to proceed. CONSENT Consent obtained: written (Risks, benefits and alternatives were discussed and a written Informed Consent was obtained. Please see Informed Consent form for further details.) UNIVERSAL PROTOCOL All relevant documentation and testing were reviewed and available. All required blood products, implants, devices and or special equipment were made available as applicable. Pre-procedure verification was conducted and the correct site was marked if required. A fire risk and smoke assessment were done as applicable. The procedural time-out to verify correct patient, correct side/site, and procedure was conducted prior to performing the procedure and confirmed in a procedural pause. PRE-PROCEDURE DETAILS Procedure purpose: therapeutic Appropriate hand hygiene, gown, cap, mask, protective eyewear, sterile gloves, skin preparation, sterile drape, and strict aseptic technique were utilized as applicable for the procedure: yes Site preparation: chlorhexidine SEDATION / ANESTHESIA Anesthesia method: local infiltration OPERATOR HEAD documented in this encounter Plan of Treatment Upcoming Encounters Date Type Department Care Team (Latest Contact Info) Description 05/08/2024 8:45 AM MILL OPERATOR HEAD Clinical Communication Virtual Review in [place], [place] 200 [place] [phone] 05/09/2024 8:20 AM MILL OPERATOR HEAD Appointment Department of Laboratory Medicine in [address] [phone] Blu Ray, P.A.-C. [address] [place] [phone] 05/09/2024 1:30 PM MILL OPERATOR HEAD Telemedicine Division of Pain Medicine in [place], [place] [address] [place] [phone] Rede Rodriguez, STACY, C.N.P., M.S.N. [address] [place] [phone] 05/11/2024 11:30 AM MILL OPERATOR HEAD Office Visit Department of Family Medicine, [facility], in [address] [phone] Blu Ray, P.A.-C. [address] [place] [phone] documented as of this encounter Procedures Procedure Name Priority Date/Time Associated Diagnosis Comments UT ARTHCS ASP/INJ MJR JT WO US Routine 04/18/2024 3:00 PM MILL OPERATOR HEAD Bursitis Trochanteric Bilateral documented in this encounter Results * UT ARTHCS ASP/INJ MJR JT WO US (04/18/2024 3:00 PM MILL OPERATOR HEAD) Narrative Kota Mars M.D. - 04/18/2024 3:00 PM MILL OPERATOR HEAD Kota Mars M.D. 04/18/2024 3:15 PM PM Soft Tissue injection Bilateral Performed by: Kota Mars M.D. Authorized by: Reed Rodriguez APRN, C.N.P., M.S.N. PROCEDURE SUMMARY Pre procedure pain score: 9/10 Post procedure pain score: 5/10 Site: Left greater trochanteric bursa and Right greater trochanteric bursa Needle size: 25 G Needle length: 2.5 in INJECTED MEDICATIONS Injected medications: The injected medication(s) listed was divided equally between the identified injection location(s) Total volume of injectate (mL): 10 Total steroid in injectate (mg): 40 9 mL BUPivacaine 0.5 % (5 mg/mL) 40 mg triamcinolone acetonide 40 mg/mL PROCEDURE DETAILS Greater trochanteric bursa description: The patient was brought to the procedure suite and placed in the appropriate position. Prior to the procedure, the appropriate trochanteric bursal region was examined to determine the optimal needle path. Thereafter, a needle was advanced into the peritrochanteric bursa and after negative aspiration, the medication was injected. Following the injection, the needle was withdrawn. The patient tolerated the procedure well and there were no apparent complications. After an appropriate amount of observation, the patient was dismissed from the clinic in good condition under their own power. Complications: no apparent complications ADDITIONAL PROCEDURE COMMENTS Greater trochanteric bursa description: The patient was brought to the procedure suite and placed in the appropriate position. Prior to the procedure, the appropriate trochanteric bursal region was examined to determine the optimal needle path. Thereafter, a needle was advanced into the peritrochanteric bursa and after negative aspiration, the medication was injected. Following the injection, the needle was withdrawn. The process was then repeated on the contralateral location. The patient tolerated the procedure well and there were no apparent complications. After an appropriate amount of observation, the patient was dismissed from the clinic in good condition under their own power. The patient reported a history of bilateral lateral hip pain that appears to be due to greater trochanteric pain syndrome. I confirmed on exam that her area of tenderness was over her greater trochanters. I discussed the risks and benefits and she wished to proceed. CONSENT Consent obtained: written (Risks, benefits and alternatives were discussed and a written Informed Consent was obtained. Please see Informed Consent form for further details.) UNIVERSAL PROTOCOL All relevant documentation and testing were reviewed and available. All required blood products, implants, devices and or special equipment were made available as applicable. Pre-procedure verification was conducted and the correct site was marked if required. A fire risk and smoke assessment were done as applicable. The procedural time-out to verify correct patient, correct side/site, and procedure was conducted prior to performing the procedure and confirmed in a procedural pause. PRE-PROCEDURE DETAILS Procedure purpose: therapeutic Appropriate hand hygiene, gown, cap, mask, protective eyewear, sterile gloves, skin preparation, sterile drape, and strict aseptic technique were utilized as applicable for the procedure: yes Site preparation: chlorhexidine SEDATION / ANESTHESIA Anesthesia method: local infiltration [facility] Deonna Rodriguez APRN, C.N. P., M.S.N. PROCEDURE/MINOR SURGICAL ORDERABLES Final Result documented in this encounter Visit Diagnoses Diagnosis Bursitis Trochanteric Bilateral documented in this encounter Administered Medications Inactive Administered Medications - up to 3 most recent administrations Medication Order MAR Action Action Date Dose Rate Site BUPivacaine 0.5 % (5 mg/mL) injection 9 mL (Marcaine) 9 mL, injection, One-Time Injection, Starting on Tue04/18/24 at 1500, For 1 doseIndications:Bursitis Trochanteric Bilateral Given 04/18/2024 3:00 PM MILL OPERATOR HEAD 9 mL triamcinolone acetonide injection 40 mg (Kenalog-40) 40 mg, injection, One-Time Injection, Starting on Tue04/18/24 at 1500, For 1 doseIndications:Bursitis Trochanteric Bilateral Given 04/18/2024 3:00 PM MILL OPERATOR HEAD 40 mg documented in this encounter Additional Health Concerns Assessment Noted Time PHQ-9 Depression Total Score: 8 07/23/19 17 3:01 PM MILL OPERATOR HEAD documented as of this encounter Care Teams Embossograph Operator Relationship Specialty Start Date End Date Blu Ray P.A.-C. [address] [phone] PCP - General Family Medicine 11/15/23 documented as of this encounter
--- OUTSIDE RECORDS SUMMARY | 2024-04-30 11:18 | XMS_ITS | Encounter Summary ---
Author Organization [facility] Address [address] [place] [address] Care Team Providers Care Hr Receptionist Name Role Phone Blu Ray P.A.-C. Primary Care Provider Reason for Referral * Outpatient (Routine) - Authorized Specialty Diagnoses / Procedures Referred By Porfirio rutledge Referred To Contact Diagnoses Abnormal Ultrasound Endometrium Procedures US Pelvis Transvaginal and Transabdominal Blu Ray P.A.-C. [address] [place] [phone] Phone: tel: fax: [facility] Region Referral ID Status Reason Start Date Expiration Date V isits Requested Visits Authorized [id number] Authorized 04/11/2024 04/11/2025 1 1 UCTION LINE SOLDERER Encounter Details Date Type Department Care Team (Late st Contact Info) Description 04/11/2024 Orders Only Department of Family Medicine, [facility], in [place], [place] [address] [place] [phone] Blu Ray P.A.-C. [address] [place] [phone] Abnormal Ultrasound Endometrium (Primary Dx) Social History Tobacco Use Types Packs/Day Years [...] 12/09/2021 How often do you attend chur or denominational services? Patient declined 12/09/2021 Do you belong to any clubs o r organizations such as pentecostalism groups, unions, fraternal or athletic groups, or [...] Answer Date Recorded PHQ-2 Score 0 12/01/2023 [facility] [place] [facility] Occup[facility] ional Health - Occupational Stress [...] place to sleep or slept in a detention (including now)? No 12/09/2021 Nutrition Answer Date Recorded On average, how many serving s of fruits and vegetables do you eat per day (serving size is equal to 1 cup or approximately the size of a tennis ball)? 0-1 12/09/2021 Dental Answer Date Recorded Dental: Regular Dentist No 12/10/19 Employment Answer Date Recorded Employment status Employed and actively working without restrictions 12/09/2021 Education Answer Date Recorded What is the highest level of school you have completed or the highest degree you have received? 12th grade 12/09/2021 Comments No Sex and Gender Information Value Date Recorded Sex Assigned at Not on file Legal Sex Female 1:43 PM PRODUCTION LINE SOLDERER Gender Identity Not on file Sexual Orientation Not on file documented as of this encounter Plan of Treatment Upcoming Encounters Date Type Department Care Team (Latest Contact Info) Description 05/08/2024 8:45 AM PRODUCTION LINE SOLDERER Clinical Communication Virtual Review in [place], [place] [address] [place] [phone] 05/09/2024 8:20 AM PRODUCTION LINE SOLDERER Appointment Department of Laboratory Medicine in [place], [place] [address] [place] [phone] Blu Ray, PDiogoA.Shayla. [address] [place] [phone] 05/09/2024 1:30 PM PRODUCTION LINE SOLDERER Telemedicine Division of Pain Medicine in [place], [place] [address] [place] [phone] Reed Rodriguez, STACY, C.N.P., M.S.N. [address] [place] [phone] 05/11/2024 11:30 AM PRODUCTION LINE SOLDERER Office Visit Department of Family Medicine, [facility], in [place], [place] [address] [place] [phone] lBu Ray PDiogoADiogo-C. [address] [place] [phone] Scheduled Orders Name Type Priority Associated Diagnoses Order Schedule US Pelvis Transvaginal and Transabdominal Imaging RAD - Routine (most inpatients and all outpatients) Abnormal Ultrasound Endometrium Expected: 04/11/2024, Expires: 07/12/2025 documented as of this encounter Visit Diagnoses Diagnosis Abnormal Ultrasound Endometrium- Primary documented in this encounter Additional Health Concerns Assessment Noted Time PHQ-9 Depression Total Score: 8 07/23/19 17 3:01 PM PRODUCTION LINE SOLDERER documented as of this encounter Care Teams Hr Receptionist Relationship Specialty Start Date End Date Blu Ray, P.A.-C. [address] [place] [phone] PCP - General Family Medicine 11/15/23 documented as of this encounter
--- OUTSIDE RECORDS SUMMARY | 2024-04-30 11:18 | XMS_ITS | Referral Summary ---
Author Organization [facility] Address [address] [place] [address] Care Team Providers Care Insurance Billing Clerk Name Role Phone Blu Ray P.A.-C. Primary Care Provider Source Comments Patient records contain information from all sites at [facility]. For routine questions regarding patient records, call [phone] during business hours, M-F 8:00 AM - 5:00 PM Central Time. Record requests for emergency care only can be directed to [phone] at any time.[facility] Encounters Date Type Department Care Team Description 04/18/2024 3:00 PM GRADUATE RN Procedure visit Division of Pain Medicine in [place], [place] [address] [place] [phone] Kota Mars M.D. Bursitis Trochanteric Bilateral 04/16/2024 12:53 PM GRADUATE RN - 04/16/2024 11:59 PM GRADUATE RN Hospital Encounter Division of Pain Medicine in [place], [place] [address] [place] [phone] Reed Rodriguez APRN, C.N.P., M.S.N. Radiculopathy Lumbar Discharge Disposition: Home or Self Care 04/13/2024 8:00 AM GRADUATE RN Comprehensive Visit Division of Pain Medicine in [place], [place] [address] [place] [phone] Reed Rodriguez APRN, C.N.P., M.S.N. Radiculopathy Lumbar (Primary Dx); Bursitis Trochanteric Bilateral; Pain Low Back Chronic 04/11/2024 Orders Only Department of Family Medicine, [facility], in [place], [place] [address] [place] [address] Blu Ray P.A.-C. Abnormal Ultrasound Endometrium (Primary Dx) 04/11/2024 1:49 PM GRADUATE RN - 04/11/2024 11:59 PM GRADUATE RN Hospital Encounter Department of Radiology in [place], [place] [address] [place] [address] Blu Ray P.A.-C. Radiculopathy Lumbar Discharge Disposition: Home or Self Care 04/09/2024 10:30 AM GRADUATE RN Comprehensive Visit Department of [facility], [facility], in [address] [phone] Blu Ray P.A.-C. Radiculopathy Lumbar (Primary Dx); Hypertension Essential Primary; Hyperlipidemia; Hypothyroidism; Neuropathy Peripheral 03/05/2024 Orders Only Department of Family Medicine, [facility], in [place], [place] 300 [place] [address] Blu Ray P.A.-C. Hypothyroidism (Primary Dx) 03/05/2024 Orders Only Department of Family Medicine, [facility], in [address] [phone] Blu Ray P.A.-C. 03/02/2024 10:10 AM CDT - 03/02/2024 11:59 PM CDT Hospital Encounter Department of Laboratory Medicine in [address] [phone] Blu Ray P.A.-C. Hyperlipidemia; Hypothyroidism; Atherosclerotic Heart Disease Of [place] Coronary Artery Without Angina Pectoris Discharge Disposition: Home or Self Care from Last 3 Months Allergies No known active allergies Medications aspirin 81 mg chewable tablet Chew 81 mg daily. 2 Active nitroglycerin (NITROSTAT) 0.[address] 0.4 mg under the tongue. 2 Active metoprolol succinate (Toprol XL) 50 mg 24 hr tablet Take 1 tablet (50 mg total) by mouth daily. Do not crush or chew. 90 tablet 3 4 12/01/19 25 Active atorvastatin (Lipitor) 10 mg tablet Take 1 tablet (10 mg total) by mouth daily. 90 tablet 3 4 Active traZODone (DesyreL) 100 mg tablet Take 1 tablet (100 mg total) by mouth daily. 90 tablet 3 4 12/01/19 25 Active levothyroxine 137 mcg tablet Take 1 tablet (137 mcg total) by mouth daily. 90 tablet 3 4 Active lisinopriL 40 mg tablet Take 1 tablet (40 mg total) by mouth daily. 90 tablet 3 4 Active LORazepam (Ativan) 0.5 mg tablet Take 1-2 tablets (0.5-1 mg total) by mouth See Admin Instruction s. Take 30 minutes prior to procedure. 2 tablet 4 Active lisinopriL 20 mg tablet Take 1 tablet (20 mg total) by mouth daily. 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 Overview (12/09/2021): Care Everywhere: 07/23/2016 ASCUS Pap, HPV report not found 08/20/2016 colposcopy: JADE I 09/22/2020 NIL/HPV negative Plan: Pap/HPV next due 09/2023 Hyperlipidemia 07/28/2012 Hypothyroidism 11/11/2009 Resolved Problems Problem Noted Date Diagnosed Date Resolved Date Non-ST Elevation Myocardial Infarction 11/25/2021 12/01/2023 Atypical Squamous Cells Unde termined Significance Cervix 09/03/2016 12/09/2021 Immunizations Name Administration Dates Next Due Tdap 12/09/2021,11/10/2009 Social History Tobacco Use Types Packs/Day Years Used Date Smoking Tobacco: Former Cigarettes 0.5 30.5 S tarted: 12/18/2021 Smokeless Tobacco: Never Tobacco Cessation:Counseling Given: Not Answered Alcohol Use Standard Drinks/Week Comments Yes 1 [...] How often do you attend chur or mormonism services? Patient declined 12/09/2021 Do you belong to any clubs o r organizations such as mandaen groups, unions, fraternal or athletic groups, or [...] Answer Date Recorded PHQ-2 Score 0 12/01/2023 [facility] [place] [facility] - Occupational Stress [...] money to buy more. Never true 12/10/19 Within the past 12 months, t he [...] place to sleep or slept in a longterm (including now)? No 12/09/2021 Nutrition Answer Date [...] on file Legal Sex Female 1:43 PM GRADUATE RN Gender Identity Not on file Sexual Orientation Not on file Last Filed Vital Signs Vital Sign Reading Time Taken Comments Blood Pressure 197/90 04/16/2024 1:51 PM GRADUATE RN Pulse 55 04/16/2024 1:46 PM GRADUATE RN Temperature 37.2 C (99 F) 04/16/2024 1:16 PM GRADUATE RN Respiratory Rate 17 04/16/2024 1:16 PM GRADUATE RN Oxygen Saturation 98% 04/16/2024 1:4 6 PM GRADUATE RN Inhaled Oxygen Concentration - - Weight 64.4 kg (141 lb 15.6 oz) 04/09/2024 10:06 AM GRADUATE RN Height 160 cm (5' 2.99) 04/09/2024 10: 06 AM GRADUATE RN with shoes on Body Mass Index 25.16 04/09/2024 10:06 AM GRADUATE RN Plan of Treatment Upcoming Encounters Date Type Department Care Team (Latest Contact Info) Description 05/08/2024 8:45 AM GRADUATE RN Clinical Communication Virtual Review in [place], [place] 200 [place] [phone] 05/09/2024 8:20 AM GRADUATE RN Appointment Department of Laboratory Medicine in [address] [phone] Blu Ray, P.A.-C. [address] [place] [phone] 05/09/2024 1:30 PM GRADUATE RN Telemedicine Division of Pain Medicine in [place], [place] [address] [place] [phone] Reed Rodriguez, STACY, C.N.P., M.S.N. [address] [place] [phone] 05/11/2024 11:30 AM GRADUATE RN Office Visit Department of Family Medicine, [facility], in [address] [phone] Blu Ray, P.A.-C. [address] [place] [phone] Medical Devices Implanted Type Area Doll Wig Maker Device Identifier Shelf Expiration Date Model / Serial / Lot Cardiac Stent Cardiac Stent Left: Heart Cardiac Stent Cardiac Stent Left: Heart Hardware E.G. Pins/Screws/R ods Hardware e.g. pins/screws/ rods Right: Ankle Procedures Procedure Name Priority Date/Time Associated Diagnosis Comments OH ARTHCS ASP/INJ MJR JT WO US Routine 04/18/2024 3:00 PM GRADUATE RN Bursitis Trochanteric Bilateral FL LUMBAR SPINE INTERLAMINAR EPIDURAL INJECTION RAD - Routine (most inpatients and all outpatients) 04/16/2024 1:45 PM GRADUATE RN Radiculopathy Lumbar MR LUMBAR SPINE WITHOUT IV CONTRAST RAD - Routine (most inpatients and all outpatients) 04/11/2024 2:39 PM GRADUATE RN Radiculopathy Lumbar OH T3 TOTAL Routine 03/02/2024 2:03 PM CDT OH T4 FREE Routine 03/02/2024 2:03 PM CDT THYROID FUNCTION CASCADE, S Routine 03/02/2024 2:03 PM CDT Hyperlipidemia Hypothyroidism Atherosclerotic Heart Disease Of [place] Coronary Artery Without Angina Pectoris BI BREAST SCREENING BILATERAL WITH TOMOSYNTHESIS RAD - Routine (most inpatients and all outpatients) 12/15/2023 1:48 PM CDT Screening Mammogram Breast Cancer HPV WITH GENOTYPING, PCR, THINPREP Routine 12/01/2023 11:09 AM CDT LIPID PANEL, S Routine 11/28/2023 9:34 AM CDT Non-ST Elevation Myocardial Infarction (HCC) Hyperlipidemia COMPREHENSIVE METABOLIC PANEL, S/P Routine 11/28/2023 9:34 AM CDT Non-ST Elevation Myocardial Infarction (HCC) Hyperlipidemia COLOGUARD Routine 12/29/2021 11:20 AM CDT Screening Cancer Colon from Last 3 Months or Most Recently Relevant to Health Maintenance Results * OH ARTHCS ASP/INJ MJR JT WO US (04/18/2024 3:00 PM GRADUATE RN) Narrative Kota Mars M.D. - 04/18/2024 3:00 PM GRADUATE RN Kota Mars M.D. 04/18/2024 3:15 PM PM Soft Tissue injection Bilateral Performed by: Kota Mars M.D. Authorized by: Reed Rodriguez APRN C.N.P., M.S.N. PROCEDURE SUMMARY Pre procedure pain [...] SEDATION / ANESTHESIA Anesthesia method: local infiltration us Reed Rodriguez APRN C.N. Jules, M.S.N. PROCEDURE/MINOR SURGICAL ORDERABLES Final Result * FL LUMBAR SPINE INTERLAMINAR EPIDURAL INJECTION (04/16/2024 1:45 PM GRADUATE RN) Narrative Gigi Cruz M.D. - 04/16/2024 2:00 PM GRADUATE RN Gigi Cruz M.D. 04/16/2024 1:46 PM FL Lumbar Spine Interlaminar Epidural Injection Performed by: Gigi Cruz M.D. Authorized by: Reed Rodriguez APRN, C.N.PDiogo, M.S.N. Care team members present 1. Yenny Chavez L.P.N. PROCEDURE SUMMARY Indications: Radiculitis Pre-procedural pain: 6/10 Site: lumbar Lumbar: interlaminar epidural steroid Interlaminar steroid injection: Left L4-L5 Needle or RF cannula: Tuohy Needle size: 20 G Needle length: 3.5 in Flow: not applicable Patient position: prone IMAGING Fluoroscopic image guidance used to localize target, identify at risk structures, and dynamically used to direct therapy to the target. Image(s) acquired and saved. INJECTED MEDICATIONS Total volume of injectate (mL): 2 Total steroid in injectate (mg): 6 1 mL lidocaine 10 mg/mL (1 %) 6 mg betamethasone acetate & sodium phosphate 6 mg/mL 1 mL iohexoL 300 mg iodine/mL PROCEDURE DETAILS Interlaminar steroid injection - lumbar: Utilizing a loss of resistance technique and intermittent fluoroscopic guidance, the Tuohy needle was advanced into the epidural space. Proper needle positioning was confirmed using multiple fluoroscopic views. After negative aspiration, the contrast was injected confirming epidural spread without evidence of intravascular or the intrathecal spread. The injectate was injected slowly and incrementally into the epidural space. The solution was injected slowly and incrementally. Following the injection the needle was withdrawn flushed with local anesthetic as it was fully extracted. The patient tolerated the procedure well and there were no apparent complications. After appropriate observation, the patient was dismissed in good condition under their own power. Complications: no apparent complications CONSENT Consent obtained: written (Risks, benefits and [...] SEDATION / ANESTHESIA Anesthesia method: local infiltration Local infiltrate type: lidocaine ATTESTATION STATEMENT The teaching physician rule is not applicable. OPERATIVE NOTE INFORMATION Specimens: 0 Drains: 0 Estimated blood loss: 0 Implants: 0 Reed Rodriguez APRN, C.N.P., M.S.N. IMG FLUOR OSCOPY PROCEDURES Final Result * MR Lumbar Spine without IV Contrast (04/11/2024 2:39 PM GRADUATE RN) Anatomical Region Laterality Modality Lumbar Spine, Neuroradiology RST LOS, Neuroradiology ARZ LOS, Neuroradiology FLA LOS N/A Magnetic Resonance Impressions 04/11/2024 3:22 PM GRADUATE RN 1. Mild levorotatory lumbar curvature with trace retrolisthesis of L4 on L5. 2. Multilevel spondylosis, greatest in conspicuity at the L4-L5 level with mild spinal stenosis and left greater than right lateral recess narrowing. 3. Facet arthrosis present at several levels, with small bilateral facet joint effusion/synovitis at L4-L5. 4. Several areas of mild to moderate foraminal encroachment described in detail above, most pronounced on the left at L4-L5. 5. T2 prolongation within the endometrial canal, estimated maximally at 9 mm. This may relate to phase of menstruation, correlation clinically is recommended. Further characterization with ultrasound may be helpful as appropriate. Narrative 04/11/2024 3:22 PM GRADUATE RN EXAM: MR LUMBAR SPINE WITHOUT IV CONTRAST COMPARISON: Correlation is performed with radiographs of the lumbar spine 07/16/2016. FINDINGS: Lower thoracic spine-L1: Mild changes of spondylosis at T11-T12 without evidence of spinal stenosis or foraminal encroachment. L1-2: No significant disc pathology. No spinal stenosis or foraminal encroachment. L2-3: Diffuse disc bulge, slightly asymmetric to the right paracentral-foraminal positions. No spinal stenosis. Mild facet arthropathy and ligamentum flavum infolding. Mild right foraminal narrowing. Left neural foramen patent. L3-4: Diffuse disc bulge with slight ventral impression thecal sac, slightly asymmetric towards the left paracentral to foraminal positions. Mild to moderate facet arthropathy. Mild left-sided foraminal narrowing. L4-5: Slight retrolisthesis of L4 on L5 with this level. Diffuse disc bulge and intervertebral disc height loss. Slight ventral impression thecal sac and mild spinal stenosis with asymmetric narrowing of the left greater than right lateral recesses. Moderate bilateral facet arthrosis. Ligament of flavum infolding. Small bilateral facet joint effusion/synovitis. Moderate severity left and mild right-sided foraminal narrowing. L5-S1: Diffuse disc bulge, asymmetrically distributed towards the right paracentral position with slight narrowing of the right lateral recess. Thecal sac tapers rapidly in the upper sacral spine. Ligamentum flavum infolding with moderately severe facet arthropathy. Left neural foramen is patent. Moderate right-sided foraminal narrowing. Alignment: Dextrorotatory lumbar curvature, apex L3. Straightening of usual lordosis with trace retrolisthesis of L4 on L5. Bone Marrow: Vertebral body heights are preserved. Endplate reactive changes at L4-L5. Conus: Normal termination, signal, and morphology. Extra-spinal Findings: T2 prolongation within the endometrial canal, estimated at approximately 9 mm in greatest dimension on localizer imaging. Partial inclusion of multilevel cervical spondylosis. Procedure Note Nicolas Harry M.D. - 04/11/2024 EXAM: MR LUMBAR SPINE WITHOUT IV CONTRAST COMPARISON: Correlation is performed with radiographs of the lumbar spine07/16/2016. FINDINGS: Lower thoracic spine-L1: Mild changes of spondylosis at T11-T12 withoutevidence of spinal stenosis or foraminal encroachment. L1-2: No significant disc pathology. No spinal stenosis or foraminalencroachment. L2-3: Diffuse disc bulge, slightly asymmetric to the rightparacentral-foraminal positions. No spinal stenosis. Mild facetarthropathy and ligamentum flavum infolding. Mild right foraminalnarrowing. Left neural foramen patent. L3-4: Diffuse disc bulge with slight ventral impression thecal sac,slightly asymmetric towards the left paracentral to foraminal positions.Mild to moderate facet arthropathy. Mild left-sided foraminal narrowing. L4-5: Slight retrolisthesis of L4 on L5 with this level. Diffuse discbulge and intervertebral disc height loss. Slight ventral impressionthecal sac and mild spinal stenosis with asymmetric narrowing of the leftgreater than right lateral recesses. Moderate bilateral facet arthrosis. Ligament of flavum infolding. Smallbilateral facet joint effusion/synovitis. Moderate severity left and mildright-sided foraminal narrowing. L5-S1: Diffuse disc bulge, asymmetrically distributed towards the rightparacentral position with slight narrowing of the right lateral recess.Thecal sac tapers rapidly in the upper sacral spine. Ligamentum flavuminfolding with moderately severe facet arthropathy. Left neural foramen is patent. Moderate right-sidedforaminal narrowing. Alignment: Dextrorotatory lumbar curvature, apex L3. Straightening ofusual lordosis with trace retrolisthesis of L4 on L5. Bone Marrow: Vertebral body heights are preserved. Endplate reactivechanges at L4-L5. Conus: Normal termination, signal, and morphology. Extra-spinal Findings: T2 prolongation within the endometrial canal,estimated at approximately 9 mm in greatest dimension on localizerimaging. Partial inclusion of multilevel cervical spondylosis. IMPRESSION: 1. Mild levorotatory lumbar curvature with trace retrolisthesis of L4 onL5. 2. Multilevel spondylosis, greatest in conspicuity at the L4-L5 level withmild spinal stenosis and left greater than right lateral recessnarrowing. 3. Facet arthrosis present at several levels, with small bilateral facetjoint effusion/synovitis at L4-L5. 4. Several areas of mild to moderate foraminal encroachment described indetail above, most pronounced on the left at L4-L5. 5. T2 prolongation within the endometrial canal, estimated maximally at 9mm. This may relate to phase of menstruation, correlation clinically isrecommended. Further characterization with ultrasound may be helpful asappropriate. Blu Ray P.A.-C. IMG MRI PROCEDURES Fin al Result * T4 (Thyroxine), Free, Serum (03/02/2024 2:03 PM CDT) T4 (Thyroxine), Free, S 1.3 0.9 - 1.7 ng/dL 03/02/2024 7:04 PM CDT OWAT Blood 03/02/2024 2:03 PM CDT 03/02/2024 5:53 PM CDT Blu Ray P.A.-C. LAB BLOOD ADD-ON Final Result [facility] [address] [place] [address], [facility] OWAT [facility] in [place] [address] [place] [address] * T3 (Triiodothyronine), Total, Serum (03/02/2024 2:03 PM CDT) T3 (Triiodothyroni ne), Total, S 87 80 - 200 ng/dL 03/04/2024 10:45 AM CDT DTL Blood 03/02/2024 2:03 PM CDT 03/04/2024 10:13 AM CDT Blu Ray P.A.-C. LAB BLOOD NON ADD-ON F inal Result [facility] [address] [place] [address], [place] DTL [facility] [address] [place] [address] * (ABNORMAL) Thyroid Function Divide (03/02/2024 2:03 PM CDT) TSH, Sensitive 0.07(L) 0.3 - 4.2 mIU/L 03/02/2024 6:41 PM CDT OWAT Blood (Blood, Venous) 03/02/2024 2:03 PM CDT 03/02/2024 5:53 PM CDT us Blu Mariella HeinC. LAB BLOOD ADD-ON Final Result [facility] [address] [place] [address], [place] OWAT [facility] in [place] [address] [place] [address] * BI Breast Screening Bilateral with Tomosynthesis (12/15/2023 1:48 PM CDT) Anatomical Region Laterality Modality Breast, Breast Imaging RST L OS, Breast Imaging ARZ LOS, Breast Imaging FLA LOS Bilateral Mammography Impressions 12/15/2023 4:00 PM CDT Negative. RECOMMENDATION: Annual Screening Mammogram ASSESSMENT: BI-RADS: 1: Negative. Narrative 12/15/2023 4:00 PM CDT EXAM: BI BREAST SCREENING BILATERAL WITH TOMOSYNTHESIS Current study was evaluated with a Computer Aided Detection (CAD) system. INDICATION: Screening mammogram. COMPARISON: Prior exam(s) were available and reviewed for comparison. DENSITY: b. There are scattered areas of fibroglandular density. FINDINGS: No mammographic findings of malignancy. Procedure Note Reginald Vitale M.D. - 12/15/2023 EXAM: BI BREAST SCREENING BILATERAL WITH TOMOSYNTHESIS Current study was evaluated with a Computer Aided Detection (CAD) system. INDICATION: Screening mammogram. COMPARISON: Prior exam(s) were available and reviewed for comparison. DENSITY: b. There are scattered areas of fibroglandular density. FINDINGS: No mammographic findings of malignancy. IMPRESSION: Negative. RECOMMENDATION: Annual Screening Mammogram ASSESSMENT: BI-RADS: 1: Negative. Blu Ray P.A.-C. IMG BI PROCEDURES Trinidad l Result * HPV with Genotyping, PCR, ThinPrep (12/01/2023 11:09 AM CDT) HPV with Genotyping, ThinPrep, PCR Negative Negative 12/02/2023 8:00 PM CDT MKTO Comment: Negative for high risk HPV by nucleic acid amplification. The following high risk HPV types were not detected: 16, 18, 31, 33, 35, 39, 45, 51, 52, 56, 58, 59, 66, and 68 This result does not rule out HPV in the patient, as the sensitivity of the test depends on the timing of the specimen collection and the quality of the specimen. Result should be correlated with patient's history, clinical presentation, and RESIDENT SERVICES MANAGER cytology report. 12/01/2023 11:0 9 AM CDT 12/02/2023 7:43 AM CDT Blu Ray P.A.-C. LAB MICROBIOLOGY - GEN ERAL ORDERABLES Final Result [facility] [place] [address], [facility] [address] * (ABNORMAL) Lipid Panel (11/28/2023 9:34 AM CDT) Triglycerides 238(H) mg/dL 11/28/2023 2:18 PM CDT OWAT Comment: ----REFERENCE VALUE---- Normal: <150 mg/dL Borderline High: 150-199 mg/dL High: 200-499 mg/dL Very High: > or =500 mg/dL Cholesterol, Total 168 mg/dL 2023 2:18 PM CDT OWAT Comment: ----REFERENCE VALUE---- Desirable: < 200 mg/dL Borderline High: 200 - 239 mg/dL High: > or = 240 mg/dL Cholesterol, LDL, Calculated 91 mg/dL 11/28/2023 2:18 PM CDT OWAT Comment: ----REFERENCE VALUE---- Desirable: <100 mg/dL Above Desirable: 100-129 mg/dL Borderline High: 130-159 mg/dL High: 160-189 mg/dL Very High: >=190 mg/dL ----ADDITIONAL INFORMATION---- LDL cholesterol calculated using the Hernandez/NIH equation. Cholesterol, HDL 37(L) >=50 mg/dL 11/28/19 2:18 PM CDT OWAT Cholesterol, Non-HDL, Calculated 131 mg/dL 11/28/2023 2:18 PM CDT OWAT Comment: ----REFERENCE VALUE---- Desirable: <130 mg/dL Above Desirable: 130-159 mg/dL Borderline High: 160-189 mg/dL High: 190-219 mg/dL Very High: > or =220 mg/dL Fasting (8 HR or more) Yes 11/28/2023 9:34 AM CDT OWAT Blood (Blood, Venous) 11/28/2023 9:34 AM CDT 11/28/2023 1:14 PM CDT us Blu Ray P.A.-C. LAB BLOOD ADD-ON Final Result [facility] [address] [place] [address], [place] OWAT [facility] [place] [address] [place] [address] * (ABNORMAL) Comprehensive Metabolic Panel (11/28/2023 9:34 AM CDT) Potassium, P 3.9 3.6 - 5.2 mmol/L 11/28/2023 2:18 PM CDT OWAT Sodium, P 139 135 - 145 mmol/L 11/28/2023 2:18 PM CDT OWAT Chloride, P 101 98 - 107 mmol/L 11/28/2023 2:18 PM CDT OWAT Bicarbonate, P 26 22 - 29 mmol/L 11/28/2023 2:18 PM CDT OWAT Anion Gap, P 12 7 - 15 11/28/2023 2:18 PM CDT OWAT BUN (Blood Urea Nitrogen), P 8 6 - 21 mg/dL 11/28/2023 2:18 PM CDT OWAT Creatinine 0.87 0.59 - 1.04 mg/dL 11/28/2023 2:18 PM CDT OWAT Estimated GFR (eGFR) 81 >=60 mL/min/BS A 11/28/2023 2:18 PM CDT OWAT Comment: Estimated GFR calculated using the 2020 CKD_EPI creatinine equation. Calcium, Total, P 8.8 8.6 - 10.0 mg/dL 11/28/2023 2:18 PM CDT OWAT Glucose, P 107 70 - 140 mg/dL 11/28/2023 2:18 PM CDT OWAT Protein, Total, P 7.5 6.3 - 7.9 g/dL 11/28/2023 2:18 PM CDT OWAT Albumin, P 4.2 3.5 - 5.0 g/dL 11/28/2023 2:18 PM CDT OWAT Aspartate Aminotransferase (AST), P 30 8 - 43 U/L 11/28/2023 2:18 PM CDT OWAT Alkaline Phosphatase, P 124(H) 35 - 104 U/L 11/28/2023 2:18 PM CDT OWAT Alanine Aminotransferase (ALT), P 14 7 - 45 U/L 11/28/2023 2:18 PM CDT OWAT Bilirubin, Total, P 0.2 0.0 - 1.2 mg/dL 11/28/2023 2:18 PM CDT OWAT Blood (Blood, Venous) 11/28/2023 9:34 AM CDT 11/28/2023 1:14 PM CDT Blu Ray P.A.-C. LAB BLOOD ADD-ON Final Result [facility] [address] [place] [address], [place] OWAT [facility] in [place] [address] [place] [address] * Cologuard-Sent Out Lab (12/29/2021 11:20 AM CDT) Result Negative Negative 01/07/2022 4:53 PM CDT EXLI Comment: NEGATIVE TEST RESULT. A negative Cologuard result indicates a low likelihood that a colorectal cancer (CRC) or advanced adenoma (adenomatous polyps with more advanced pre-malignant features) is present. The chance that a person with a negative Cologuard test has a colorectal cancer is less than 1 in 1500 (negative predictive value >99.9%) or has an advanced adenoma is less than 5.3% (negative predictive value 94.7%). These data are based on a prospective cross-sectional study of 10,000 individuals at average risk for colorectal cancer who were screened with both Cologuard and colonoscopy. (Cj Garner et al, N Engl J Med 2014;370(14):0876-4973) The normal value (reference range) for this assay is negative. COLOGUARD RE-SCREENING RECOMMENDATION: Periodic colorectal cancer screening is an important part of preventive healthcare for asymptomatic individuals at average risk for colorectal cancer. Following a negative Cologuard result, the [employer] and U.S. Multi-Society Task Force screening guidelines recommend a Cologuard re-screening interval of 3 years. References: [employer] Guideline for Colorectal Cancer Screening: https://www.cancer.org/cancer/yyxkh-zmyczr-gumyej/detection- diagnosis-staging/acs-recommendations.html.; Patricio DK, Fuad CR, Maricruz GoodeK, Colorectal Cancer Screening: Recommendations for Physicians and Patients from the U.S. Multi-Society Task Force on Colorectal Cancer Screening , Am J Gastroenterology 2017; 112:7563-4531. TEST DESCRIPTION: Composite algorithmic analysis of stool DNA-biomarkers with hemoglobin immunoassay. Quantitative values of individual biomarkers are not reportable and are not associated with individual biomarker result reference ranges. Cologuard is intended for colorectal cancer screening of adults of either sex, 45 years or older, who are at average-risk for colorectal cancer (CRC). Cologuard has been approved for use by the U.S. FDA. The performance of Cologuard was established in a cross sectional study of average-risk adults aged 50-84. Cologuard performance in patients ages 45 to 49 years was estimated by sub-group analysis of near-age groups. Colonoscopies performed for a positive result may find as the most clinically significant lesion: colorectal cancer [4.0%], advanced adenoma (including sessile serrated polyps greater than or equal to 1cm diameter) [20%] or non- advanced adenoma [31%]; or no colorectal neoplasia [45%]. These estimates are derived from a prospective cross-sectional screening study of 10,000 individuals at average risk for colorectal cancer who were screened with both Cologuard and colonoscopy. (Cj Curtis al, N Engl J Med 2014;370(14):3050-6534.) Cologuard may produce a false negative or false positive result (no colorectal cancer or precancerous polyp present at colonoscopy follow up). A negative Cologuard test result does not guarantee the absence of CRC or advanced adenoma (pre-cancer). The current Cologuard screening interval is every 3 years. ([employer] and U.S. Multi-Society Task Force). Cologuard performance data in a 10,000 patient pivotal study using colonoscopy as the reference method can be accessed at the following location: www.[employer]/results. Additional description of the Cologuard test process, warnings and precautions can be found at [email or web address].com. Stool (Stool) 12/29/2021 11: 20 AM CDT 12/31/2021 7:05 PM CDT us [facility] LAB BODY FLUIDS AND ST OOLS ORDERABLES Final Result [employer] [address] [place] [id number] [employer] [address] [place] [address], [address] [place] [address] from Last 3 Months or Most Recently Relevant to Health Maintenance Insurance [facility] Care Teams Insurance Billing Clerk Relationship Specialty Start Date End Date [facility] P[facility] [address] [place] [phone] PCP - General Family Medicine 11/15/23
--- OUTSIDE RECORDS SUMMARY | 2024-04-30 11:18 | XMS_ITS | Encounter Summary ---
Author Organization [facility] Address [address] [place] [id number] Care Team Providers Care Incising Machine Operator Name Role Phone [facility] Primary Care Provider Reason for Referral * Outpatient (Routine) - Authorized Specialty Diagnoses / Procedures Referred By Porfirio t Referred To Contact Pain Medicine Diagnoses n/a Reed Rodriguez APRN, C.N.P., M.S.N. [address] [place] [phone] Phone: tel: fax: [facility] Referral ID Status Reason Start Date Expiration Date V isits Requested Visits Authorized [id number] Authorized 04/13/2024 10/13/2025 1 1 KER ON * Outpatient (Routine) - Closed Specialty Diagnoses / Procedures Referred By Contac t Referred To Contact Diagnoses Radiculopathy Lumbar Procedures FL Lumbar Spine Interlaminar Epidural Injection Reed Rodriguez APRN, C.N.P., M.S.N. [address] [place] [phone] Phone: tel: fax: [facility] Referral ID Status Reason Start Date Expiration Date Visits Re quested Visits Authorized [id number] Closed 04/13/2024 04/13/2025 1 1 KER ON * Outpatient (Routine) - Closed Specialty Diagnoses / Procedures Referred By Porfirio rutledge Referred To Contact Diagnoses Bursitis Trochanteric Bilateral Procedures PM Soft Tissue injection Bilateral Reed Rodriguez APRN, C.N.P., M.S.N. [address] [place] [phone] Phone: tel: fax: [facility] Referral ID Status Reason Start Date Expiration Date Visits Re quested Visits Authorized [id number] Closed 04/13/2024 04/13/2025 1 1 KER ON Reason for Visit * Outpatient (Routine) - Closed Specialty Diagnoses / Procedures Referred By Porfirio rutledge Referred To Contact Pain Medicine Diagnoses Radiculopathy Lumbar [facility] [address] [place] [phone] Phone: tel: fax: [facility] Referral ID Status Reason Start Date Expiration Date Visits Re quested Visits Authorized [id number] Closed 04/09/2024 10/09/2025 1 1 Encounter Details Date Type Department Care Team (Latest Contact Info) Description 04/13/2024 8:00 AM STICKER ON Comprehensive Visit Division of Pain Medicine in [place], [place] [address] [place] [phone] Reed Rodriguez APRN, C.N.P., M.S.N. [address] [place] [phone] Radiculopathy Lumbar (Primary Dx); Bursitis Trochanteric Bilateral; Pain Low Back Chronic Social History Tobacco Use Types Packs/Day Years [...] often do you attend chur ch or pentecostalism services? Patient declined 12/09/2021 Do you belong to any clubs o r organizations such as buddhist groups, unions, fraternal or athletic groups, or [...] Answer Date Recorded PHQ-2 Score 0 12/01/2023 [facility] - Occupational Stress Questionnaire Answer Date Recorded [...] place to sleep or slept in a long term (including now)? No 12/09/2021 Nutrition Answer Date [...] on file Legal Sex Female 1:43 PM STICKER ON Gender Identity Not on file Sexual Orientation Not on file documented as of this encounter Consult Notes * Reed Rodriguez, STACY, C.N.P., M.S.N. - 04/13/2024 8:00 AM CST REFERRING PROVIDER [facility] [address] [place] [phone] CHIEF COMPLAINT / REASON FOR VISIT: Low back and left leg pain HISTORY OF PRESENT ILLNESS: Merna Hedrick is a 48 y.o. female with a history of chronic low back pain who is presenting today to discuss ongoing interventions for this pain. She describes a many year history of progressively worsening low back and left leg pain. This pain is located in the low back, around the belt line as well as over the lateral hips. This pain will occasionally radiate down the lateral aspect of her left leg into the left foot. This pain is aggravated with sitting, going up and down stairs, and rolling from [id number]. This pain is alleviated with certain positions such as lying on her side with a pillow between her legs. Associated with this pain is tingling in both feet and subjective lower extremity weakness. Medication-weiss, she will utilize plrq-apx-aliojoa NSAIDs on occasion. She has never undergone any formal physical therapy, however she has done exercises for the low back given to her by other providers, however she is limited in his exercises as a increase her pain. Interventionally, she has undergone a left paramedian L4-5 interlaminar epidural steroid injection in 2018 which provided excellent relief for nearly 2 years. She feels her current pain is in the same location and distribution as it was 2 years ago prior to the epidural injection. The patient denies any changes to bowel or bladder function. Patient denies any recent fevers, chills, infections or antibiotic use. Patient denies any allergies to local anesthetic, corticosteroids,or contrast dye. Patient denies any current anticoagulant usage. Pain score today: 6/10. REVIEW OF SYSTEMS: I have briefly reviewed the Review of Systems as noted on the Health history form. I am only responding to those symptoms which are directly relevant to the specific indication for my consultation. Irecommend that the patient follow up with their primary or referring provider to pursue any other symptoms which may be of concern. OBJECTIVE PHYSICAL EXAM GENERAL: Pleasant, 48 y.o. female, in no acute distress. HEAD: Normocephalic and atraumatic. EYES: Pupils 3 mm. LUNGS: Unlabored respirations. SKIN: Low back absent of erythema, lesions, rashes, or infections. MUSCULOSKELETAL: Palpation about the bilateral trochanteric bursae were exquisitely tender. Also very tender over the bilateral lumbar paraspinals from the intercristal line to the lumbosacral junction bilaterally. Also notably tender over the bilateral sacroiliac joints. SPINE: MANEUVERS: LUIS F resulting in lateral hip pain bilaterally. Positive Stinchfield for groin pain bilaterally. Positive straight leg raise bilaterally. NEURO: STRENGTH: Lower extremity strength intact and equal bilaterally REFLEXES: Patellar and Achilles reflexes 2+ bilaterally SENSATION: Intact to light touch bilaterally at L2, L3, and S1. Reduced to light touch over the left L4, intact to light touch at the right L4, and reduced sensation to light touch bilaterally over L5 MENTAL: Alert, oriented, appropriate mood and affect, recent and remote memory intact. DIAGNOSTICS Lumbar MRI 04/11/2024 IMPRESSION: 1. Mild levorotatory lumbar curvature with trace retrolisthesis of L4 on L5. 2. Multilevel spondylosis, greatest in conspicuity at the L4-L5 level with mild spinal stenosis andleft greater than right lateral recess narrowing. 3. [...] correlation clinically is recommended. Further characterization with ultrasoundmay be helpful as appropriate. ASSESSMENT / PLAN #1 Radiculopathy Lumbar #2 Bursitis Trochanteric Bilateral #3 Pain Low Back Chronic Merna Hedrick is a 48 y.o. female with a history of chronic low back pain. Findings on evaluation are consistent with low back pain with both mechanical features as well as possible radiculitis. Considering her low back and leg pain has previously responded to an epidural steroid injection, I feel it would be reasonable to repeat that. In addition, she does have clear trochanteric bursitis onexam and I feel it would be reasonable to treat that as well. MEDICAL DECISION MAKING 1. Conservative: We discussed the importance of physical therapy as it pertains to the long-term benefits for low back pain. We discussed following the injections, I recommend she participate in formal physical therapy for the development of a home exercise program. 2. Medications: She could increase her use of [id number]-gvs-[id number] NSAIDs or add in Tylenol if needed for the pain. 3. Imaging: No imaging needed 4. Injections/interventions: We will trial a left paramedian L4-L5 interlaminar epidural steroid injection as well as bilateral trochanteric bursa steroid injections. We have discussed the risks, benefits, and intended outcomes of these procedures. The patient understands that it may take up to 2 weeks to experience significant improvement in pain. It was discussed with the patient that the application of ice and avoidance of heat and soaking are recommended for the first 48 hours after the procedure. Showering is appropriate. The patient stated understanding and their questions and concerns were answered to the best of my abilities. The procedural consent was signed in the office. 5. Referrals: No referrals made today The above was discussed with Dr. Cruz who is in agreement with this plan FOLLOW-UP I have ordered a follow up 2 weeks after the above procedures to re-evaluate her progress. I encouraged her to reach out via patient portal message in the meantime if any issues arise. Total time: 41 minutes with >50% of the time spent in counseling and coordination. PATIENT EDUCATION Ready to learn, no apparent learning barriers were identified; learning preferences included listening. Explained diagnosis and treatment plan; patient expressed understanding of the content. KER ON documented in this encounter Plan of Treatment Upcoming Encounters Date Type Department Care Team (Latest Contact Info) Description 05/08/2024 8:45 AM STICKER ON Clinical Communication Virtual Review in [place], [place] [address] [place] [phone] 05/09/2024 8:20 AM STICKER ON Appointment Department of Laboratory Medicine in [address] [phone] [facility] P[facility] [address] [place] [phone] 05/09/2024 1:30 PM STICKER ON Telemedicine Division of Pain Medicine in [place], [place] [address] [place] [phone] Reed Rodriguez APRN, C.N.P., M.S.N. [address] [place] [phone] 05/11/2024 11:30 AM STICKER ON Office Visit Department of Family Medicine, [facility], in [address] [place] [phone] [facility] P[facility] [address] [facility] [place] [phone] Scheduled Referrals Name Type Priority Associated Diagnoses Orde r Schedule Pain Medicine office visit (clinic) Outpatient Referral Routine Expected: 04/13/2024, Expires: 07/14/2025 documented as of this encounter Results * CT ARTHCS ASP/INJ MJR JT WO US (04/18/2024 3:00 PM STICKER ON) Narrative Kota Mars M.D. - 04/18/2024 3:00 PM STICKER ON Kota Mars M.D. 04/18/2024 3:15 PM PM [...] SEDATION / ANESTHESIA Anesthesia method: local infiltration Reed Rodriguez APRN, C.N. P., M.S.N. PROCEDURE/MINOR SURGICAL ORDERABLES Final Result * FL LUMBAR SPINE INTERLAMINAR EPIDURAL INJECTION (04/16/2024 1:45 PM STICKER ON) Narrative Gigi Cruz M.D. - 04/16/2024 2:00 PM STICKER ON Gigi Cruz M.D. 04/16/2024 1:46 PM FL Lumbar Spine Interlaminar Epidural Injection Performed by: Gigi Cruz M.D. Authorized by: Reed Rodriguez APRN, C.NSarwat, M.S.N. Care team members present 1. Yenny Chavez L.P.N. PROCEDURE SUMMARY Indications: Radiculitis Pre-procedural pain: 11/13 Site: lumbar Lumbar: interlaminar epidural steroid Interlaminar [...] blood loss: 0 Implants: 0 Reed Rodriguez APRN C.N.P., M.S.N. IMG FLUOR OSCOPY PROCEDURES Final Result documented in this encounter Visit Diagnoses Diagnosis Radiculopathy Lumbar- Primary Bursitis Trochanteric Bilateral Pain Low Back Chronic Radiculopathy Lumbar Bursitis Trochanteric Bilateral documented in this encounter Additional Health Concerns Assessment Noted Time PHQ-9 Depression Total Score: 8 07/23/19 17 3:01 PM STICKER ON documented as of this encounter Care Teams Incising Machine Operator Relationship Specialty Start Date End Date [facility] P[facility] [address] [place] [phone] PCP - General Family Medicine 11/15/23 documented as of this encounter
--- OUTSIDE RECORDS SUMMARY | 2024-04-30 11:18 | XMS_ITS | Clinical Summary ---
Author Organization [facility] Address [place], [place] [address] Care Team Providers Care Cloth Tester Name Role Phone Pcp, No Primary Care Provider Unavailabl e Allergies No known active allergies Medications Medication Sig Dispensed Refills Start Date End Date Status levothyroxine (SYNTHROID) 150 mcg tabletIndications:hypot hyroidism Take 1 Tablet (150 mcg) by mouth before breakfast. 30 Tablet 1 09/24/2020 Active traZODone (DESYREL) 100 mg tabletIndications:insom pricilla associated with depression Take 100 mg by mouth at bedtime. Active lisinopriL (PRINIVIL; ZESTRIL) 20 mg tabletIndications:HTN (hypertension) Take 1 Tablet (20 mg) by mouth 2 times daily. 60 Tablet 11/28/2021 Active aspirin chewable 81 mg chewable tabletIndications:NSTEM I (non-ST elevated myocardial infarction) (HC) Chew 1 Tablet (81 mg) by mouth once daily. 1 Tablet 11/29/2021 Active atorvastatin (LIPITOR) 40 mg tabletIndications:NSTEM I (non-ST elevated myocardial infarction) (HC),Hyperlipidemia, unspecified hyperlipidemia type Take 1 Tablet (40 mg) by mouth at bedtime. 30 Tablet 11/28/2021 Active isosorbide mononitrate (IMDUR) 30 mg extended release tablet 24 HourIndications:HTN (hypertension),NSTEMI (non-ST elevated myocardial infarction) (HC) Take 1 Tablet (30 mg) by mouth once daily. 30 Tablet 11/28/2021 Active nitroglycerin (NITROSTAT) 0.4 mg sublingual tabletIndications:NSTEM I (non-ST elevated myocardial infarction) (HC) Place 1 Tablet (0.4 mg) under the tongue every 5 minutes if needed for Chest Pain. 25 Tablet 11/28/2021 Active ticagrelor (BRILINTA) 90 mg tabletIndications:NSTEM I (non-ST elevated myocardial infarction) (HC) Take 1 Tablet (90 mg) by mouth 2 times daily. 60 Tablet 11/28/2021 Active carvediloL (COREG) 6.25 mg tabletIndications:HTN (hypertension),NSTEMI (non-ST elevated myocardial infarction) (HC) Take 1 Tablet (6.25 mg) by mouth 2 times daily with meals. 60 Tablet 11/28/2021 Active Active Problems Problem Noted Date Diagnosed Date NSTEMI (non-ST elevated myocardial infarction) 0 11/25/2021 Tobacco abuse 11/25/2021 Bradycardia 02/16/2017 Atypical squamous cells of u ndetermined significance (ASCUS) on Papanicolaou smear of cervix 07/23/2016 Overview (10/09/2020): Care Everywhere: 07/23/2016 ASCUS Pap, HPV report not found 08/20/2016 colposcopy: JADE I 09/22/2020 NIL/HPV negative Plan: Pap/HPV next due 09/2023 Insomnia 03/24/2015 Acquired hypothyroidism 03/24/2015 Hyperlipidemia 07/28/2012 Immunizations Name Administration Dates Next Due Tdap 11/10/2009 Family History Medical History Relation Name Comments Other Father cervical fusion at age 50 and a less invasive lumbar surgery in his 40s Relation Name Status Comments Father Social History Tobacco Use Types Packs/Day Years Used Date Smoking Tobacco: Every Day Cigarettes Smokeless Tobacco: Never Tobacco Cessation:Ready to Q uit: Yes Alcohol Use Standard Drinks/Week Comments Yes 0 (1 standard drink = 0.6 oz pur e alcohol) Social PHQ-2 Answer Date Recorded PHQ-2 TOTAL SCORE 2 10/06/2020 Social Connections Answer Date Recorded Frequency of Communication with Friends and Fami ly Not on file 06/06/2021 Financial Resource Strain Answer Date R ecorded Difficulty of Paying Living Expenses Not on file 06/06/2021 Difficulty of Paying Living Expenses Not on file 06/06/2021 Sex and Gender Information Value Date Recorded Sex Assigned at Not on file Gender Identity Not on file Sexual Orientation Not on file Obstetrics History Last Filed Vital Signs Vital Sign Reading Time Taken Comments Blood Pressure 167/99 11/28/2021 3:50 PM CDT Pulse 78 11/28/2021 3:50 PM CDT Temperature 37 C (98.6 F) 11/28/2021 3:50 PM CDT Respiratory Rate 18 11/28/2021 3:50 PM CDT Oxygen Saturation 97% 11/28/2021 3:50 PM CDT Inhaled Oxygen Concentration - - Weight 69 kg (152 lb 1.9 oz) 11/28/2021 6:00 AM CDT Height 156.2 cm (5' 1.5) 11/25/2021 11:00 PM CD T Pt stated Body Mass Index 28.28 11/25/2021 11:00 PM CDT Plan of Treatment Health Maintenance Due Date Last Done Comments HIV for age 15-65 1988 Hepatitis C screening for age 18-79 1991 Colonoscopy through age 75 2018 Mammogram for age 45-75 2018 Tetanus booster 11/11/2019 11/10/2009 BMI (ht and wt on same day) for age 18+ 09/22/2021 09/22/2020, 08/10/2017, 02/16/2017, Additional history exists Depression screening for age 12+ 10/09/2021 10/09/2020, 10/06/2020, 08/10/2017 Zoster (shingles) series for age 50+ (1 of 2) 2023 Pap test for age 21-65 09/23/2023 09/22/2020, 2020 COVID-19 vaccine series ( season) 2024 Influenza for age 50-64 02/05/2024 Lipids for age 45-75 11/26/2026 11/26/2021 Tdap Completed 11/10/2009 Pneumococcal series for age 6-64 Aged Out No longer eligible based on patient's age to complete this topic Procedures Procedure Name Priority Date/Time Associated Diagnosis Comments LIPID PANEL Early AM 11/26/2021 3:19 AM CDT INSURANCE EXAMINING CLERK THIN PREP PAP SCREEN IMAGED Routine 09/22/2020 2:28 PM CDT Pap smear for cervical cancer screening from Last 3 Months or Most Recently Relevant to Health Maintenance Results * LIPID PANEL (11/26/2021 3:19 AM CDT) CHOLESTEROL,TOTAL 173 100 - 199 mg/dL 11/26/2021 3:48 AM CDT [facility] TRIGLYCERIDES 93 <150 mg/dL 11/26/2021 3:48 AM CDT [facility] HDL CHOLESTEROL 54 >40 mg/dL 3:48 AM CDT [facility] NON-HDL CHOLESTEROL 119 <145 mg/dl 11/26/2021 3:48 AM CDT [facility] CHOL/HDL RATIO 3.20 <4.50 11/26/2021 3:48 AM CDT [facility] LDL CHOLESTEROL 100 <=130 mg/dL 11/26/2021 3:48 AM CDT [facility] VLDL CHOLESTEROL 19 <=30 mg/dL 11/26/2021 3:48 AM CDT [facility] PROVIDER ORDERED STATUS RANDOM 11/26/2021 3:48 AM CDT [facility] Blood BLOOD SPECIMEN / Unknown Venipuncture / Unknown 11/26/2021 3:19 AM CDT 11/26/2021 3:25 AM CDT Graham Frey DO CHEMISTRY [facility] SENDOUT INTERNAL ZIP [address] [place] [id number] * INSURANCE EXAMINING CLERK THIN PREP PAP SCREEN IMAGED (09/22/2020 2:28 PM CDT) Case Report Gynecologic Cytology Report Case: [id number] Authorizing Provider: Gladys Plummer MD Collected: 09/22/2020 1428 Ordering Location: [facility] Received: 09/22/2020 1440 Clinic First Screen: Gris Villalba Rescreen: Agnieszka Sanchez Pathologist: Gin Jimenez MD Specimen: INSURANCE EXAMINING CLERK ThinPrep Vial Screening, Cervical 10/03/2020 4:37 PM CDT [facility]AL [facility] INTERPRETATION/ RESULT NEGATIVE FOR INTRAEPITHELIAL LESION OR MALIGNANCY (NIL) (none) 10/03/2020 4:[address] [facility] NISM(S) Shift in saul suggestive of bacterial vaginosis 10/03/2020 4:37 PM CDT [facility] OTHER Endometrial cells in a woman more than 45 years of age. 10/03/2020 4:[address] [facility] EDUCATIONAL NOTES & SUGGESTIONS Endometrial cells after the age of 45, particularly out of phase or after menopause, may be associated with benign endometrium, hormonal alterations and less commonly with endometrial uterine abnormalities. Clinical correlation is recommended. 10/03/2020 4:[address] [facility] SPECIMEN ADEQUACY Satisfactory for evaluation Endocervical component present 10/03/2020 4:[address] [facility] HPV REQUEST HPV and PAP 10/03/2020 4:[address] [facility] Date of LMP irregular 10/03/2020 4:37 PM CDT [facility] Last Pap Date 07/201610/03/2020 4:[address] [facility] Last Pap Result ASCUS 4:37 PM CDT [facility] Abnormal Pap or Gobler Bx in last 5 years Yes 10/03/2020 4:37 PM CDT [facility] Menstrual Status Irregular Periods 10/03/2020 4:[address] [facility] Gobler Bx Done Today No 10/03/2020 4:37 PM CDT [facility] Additional Information JADE 1 on colposcopy 08/201610/03/2020 4:37 PM CDT [facility] Comment: Cytology is screened at [facility] [employer] [facility] - [address], [place] [address] and [facility] - [address] [place] [address] and [facility] - [address] [place] [address] Interpreted at [facility] - [address], [place] [address] Automated Review Successful 10/03/2020 4:37 PM CDT [facility] Comment:Specimen processed s uccessfully by automated endoscopy technican device, [employer] System, [employer] ANCILLARY TESTING INSURANCE EXAMINING CLERK HPV Ordered, Please see separate report 10/03/2020 4:[address] [facility] Note The pap test is a screening technique, not a diagnostic procedure. It is used primarily to screen for squamous cancers and precursor lesions. Published studies have shown that it is subject to both false negative and false positive results. The pap test should not be used as the sole means to diagnose or exclude pre-malignant and malignant lesions. 10/03/2020 4:[address] [facility] Other (Cervical) Non-Blood / Unknown 09/22/2020 2:28 PM CDT 09/22/2020 2:40 PM CDT Gladys Plummer MD PATHOLOGY/CYTOLOGY [facility] [address] [place] [address], [place] from Last 3 Months or Most Recently Relevant to Health Maintenance Advance Directives * Full Code (Latest Code Status on File) Date Activated Date Inactivated Comments 11/25/2021 9:34 PM 11/28/2021 8:13 PM Question Answer Comments Code Status Discussion: Reviewed Preferences * Full Code Date Activated Date Inactivated Comments 02/16/2017 8:56 PM 02/18/2017 4:09 PM * Full Code Date Activated Date Inactivated Comments 08/18/2016 4:55 PM 08/19/2016 2:30 AM * Full Code Date Activated Date Inactivated Comments 08/18/2016 10:23 AM 08/18/2016 4:55 PM Care Teams Cloth Tester Relationship Specialty Start Date End Date Pcp, No . PCP - General 08/05/22
--- OUTSIDE RECORDS SUMMARY | 2024-04-30 11:18 | XMS_ITS | Clinical Summary ---
Author Organization [facility] Address [address] [place] [address] Care Team Providers Care Relationship Mgr Name Role Phone Blu Ray P.A.-C. Primary Care Provider Source Comments Patient records contain information from all sites at [facility]. For routine questions regarding patient records, call [phone] during business hours, M-F 8:00 AM - 5:00 PM Central Time. Record requests for emergency care only can be directed to [phone] at any time.[facility] Allergies No known active allergies Medications aspirin 81 mg chewable tablet Chew 81 mg daily. 2 Active nitroglycerin (NITROSTAT) 0.[address] 0.4 mg under the tongue. 2 Active metoprolol succinate (Toprol XL) 50 mg 24 hr tablet Take 1 tablet (50 mg total) by mouth daily. Do not crush or chew. 90 tablet 3 4 12/01/19 Active atorvastatin (Lipitor) 10 mg tablet Take [...] Cells Unde termined Significance Cervix 09/03/2016 12/09/2021 Encounters Date Type Department Care Team Description 04/18/2024 3:00 PM PLANNING ENGINEER Procedure visit Division of Pain Medicine in [place], [place] [address] [place] [phone] Kota Mars M.D. Bursitis Trochanteric Bilateral 04/16/2024 12:53 PM PLANNING ENGINEER - 04/16/2024 11:59 PM PLANNING ENGINEER Hospital Encounter Division of Pain Medicine in [place], [place] [address] [place] [address] Reed Rodriguez APRN, C.N.P., M.S.N. Radiculopathy Lumbar Discharge Disposition: Home or Self Care 04/13/2024 8:00 AM PLANNING ENGINEER Comprehensive Visit Division of Pain Medicine in [place], [place] [address] [place] [phone] Reed Rodriguez APRN, C.N.P., M.S.N. Radiculopathy Lumbar (Primary Dx); Bursitis Trochanteric Bilateral; Pain Low Back Chronic 04/11/2024 1:49 PM PLANNING ENGINEER - 04/11/2024 11:59 PM PLANNING ENGINEER Hospital Encounter Department of Radiology in [place], [place] [address] [place] [address] Blu Ray P.A.-C. Radiculopathy Lumbar Discharge Disposition: Home or Self Care 04/11/2024 Orders Only Department of [facility] Medicine, [facility], in [address] [phone] Blu Ray P.A.-C. Abnormal Ultrasound Endometrium (Primary Dx) 04/09/2024 10:30 AM PLANNING ENGINEER Comprehensive Visit Department of [facility], [facility], in [address] [phone] Blu Ray P.A.-C. Radiculopathy Lumbar (Primary Dx); Hypertension Essential Primary; Hyperlipidemia; Hypothyroidism; Neuropathy Peripheral 03/05/2024 Orders Only Department of Family Medicine, [facility], in [address] [phone] Blu Ray P.A.-C. Hypothyroidism (Primary Dx) 03/05/2024 Orders Only Department of [facility], [facility], in [address] [phone] Blu Ray P.A.-C. 03/02/2024 10:10 AM CDT - 03/02/2024 11:59 PM CDT Hospital Encounter Department of Laboratory Medicine in [address] [phone] Blu Ray P.A.-C. Hyperlipidemia; Hypothyroidism; Atherosclerotic Heart Disease Of [place] Coronary Artery Without Angina Pectoris Discharge Disposition: Home or Self Care from Last 3 Months Immunizations Name Administration Dates Next Due Tdap 12/09/2021,11/10/2009 Family History Medical History Relation Name Comments Hypertension Father Stroke Grandmother paternal Relation Name Status Comments Father Alive Grandmother paternal Mother Alive Social History Tobacco Use Types Packs/Day Years [...] How often do you attend chur or lutheran services? Patient declined 12/09/2021 Do you belong to any clubs o r organizations such as restoration groups, unions, fraternal or athletic groups, or [...] Answer Date Recorded PHQ-2 Score 0 12/01/2023 [facility] - Occupational Stress Questionnaire Answer [...] place to sleep or slept in a fci (including now)? No 12/09/2021 Nutrition Answer Date [...] on file Legal Sex Female 1:43 PM PLANNING ENGINEER Gender Identity Not on file Sexual Orientation Not on file Last Filed Vital Signs Vital Sign Reading Time Taken Comments Blood Pressure 197/90 04/16/2024 1:51 PM PLANNING ENGINEER Pulse 55 04/16/2024 1:46 PM PLANNING ENGINEER Temperature 37.2 C (99 F) 04/16/2024 1:16 PM PLANNING ENGINEER Respiratory Rate 17 04/16/2024 1:16 PM PLANNING ENGINEER Oxygen Saturation 98% 04/16/2024 1:4 6 PM PLANNING ENGINEER Inhaled Oxygen Concentration - - Weight 64.4 kg (141 lb 15.6 oz) 04/09/2024 10:06 AM PLANNING ENGINEER Height 160 cm (5' 2.99) 04/09/2024 10: 06 AM PLANNING ENGINEER with shoes on Body Mass Index 25.16 04/09/2024 10:06 AM PLANNING ENGINEER Plan of Treatment Upcoming Encounters Date Type Department Care Team (Latest Contact Info) Description 05/08/2024 8:45 AM PLANNING ENGINEER Clinical Communication Virtual Review in [place], [place] [address] [place] [address] 05/09/2024 8:20 AM PLANNING ENGINEER Appointment Department of Laboratory Medicine in [address] [phone] Blu Ray, P.A.-C. [address] [place] [phone] 05/09/2024 1:30 PM PLANNING ENGINEER Telemedicine Division of Pain Medicine in [place], [place] [address] [place] [phone] Reed Rodriguez, STACY, C.N.P., M.S.N. [address] [place] [phone] 05/11/2024 11:30 AM PLANNING ENGINEER Office Visit Department of Family Medicine, [facility], in [address] [phone] Blu Ray, P.A.-C. [address] [place] [phone] Health Maintenance Due Date Last Done Comments CT Colonography 1973 Colonoscopy 1973 FIT 1973 HIV Screening 1973 Hepatitis C Screening 1973 Hepatitis B Vaccines (1 of 3 - 19+ 3-dose series) 1992 Zoster Vaccines (1 of 2) 2023 COVID-19 Vaccine ( season) 2024 Influenza Vaccine (#1) 2024 Creatinine Level (Kidney Function Test) 11/27/2024 11/28/2023, 12/09/2021, 11/27/2021, Additional history exists Potassium Level 11/27/2024 11/28/2023, 07/0 11/2021, 11/27/2021, Additional history exists Sodium Level 11/27/2024 11/28/2023, 07/0 11/2021, 11/27/2021, Additional history exists Mammogram 12/14/2024 12/15/2023, /2 , 07/16/2016 Cologuard 01/07/2025 01/07/2022, 12/29/2021 Colorectal Cancer Screening 01/07/2025 Thyroid Stimulating Hormone (TSH) test for thyroid function 03/02/2025 03/02/2024, 11/28/2023, 12/09/2021, Additional history exists Fasting Glucose for Diabetes Screening 11/27/2026 11/28/2023, 12/09/2021, 11/27/2021, Additional history exists Lipid (Cholesterol) Screening 11/27/2028 11/28/2023, 11/26/2021, 07/16/2016, Additional history exists Cervical/Vaginal Cancer Screening 11/30/2028 12/01/2023, 12/01/2023, 07/23/2016, Additional history exists DTaP,Tdap,and Td Vaccines (3 - Td or Tdap) 12/10/2031 12/09/2021, 11/10/2009 Depression Screening (Annual PHQ-2) Completed 12/01/2023, 12/01/2023 IPV Vaccines Aged Out No longer eligi ble based on patient's age to complete this topic Pneumococcal vaccine (0-64 years) Aged Out No longer eligible based on patient's age to complete this topic Medical Devices Implanted Type Area Fretted Instruments Inspector Device Identifier Shelf Expiration Date Model / Serial / Lot Cardiac Stent Cardiac Stent Left: Heart Cardiac Stent Cardiac Stent Left: Heart Hardware E.G. Pins/Screws/R ods Hardware e.g. pins/screws/ rods Right: Ankle Procedures Procedure Name Priority Date/Time Associated Diagnosis Comments IL ARTHCS ASP/INJ MJR JT WO US Routine 04/18/2024 3:00 PM PLANNING ENGINEER Bursitis Trochanteric Bilateral FL LUMBAR SPINE INTERLAMINAR EPIDURAL INJECTION RAD - Routine (most inpatients and all outpatients) 04/16/2024 1:45 PM PLANNING ENGINEER Radiculopathy Lumbar MR LUMBAR SPINE WITHOUT IV CONTRAST RAD - Routine (most inpatients and all outpatients) 04/11/2024 2:39 PM PLANNING ENGINEER Radiculopathy Lumbar IL T3 TOTAL Routine 03/02/2024 2:03 PM CDT IL T4 FREE Routine 03/02/2024 2:03 PM CDT THYROID FUNCTION CASCADE, S Routine 03/02/2024 2:03 PM CDT Hyperlipidemia Hypothyroidism Atherosclerotic Heart Disease Of [place] Coronary Artery Without Angina Pectoris BI BREAST [...] Recently Relevant to Health Maintenance Results * IL ARTHCS ASP/INJ MJR JT WO US (04/18/2024 3:00 PM PLANNING ENGINEER) Narrative Kota Mars M.D. - 04/18/2024 3:00 PM PLANNING ENGINEER Kota Mars M.D. 04/18/2024 3:15 PM PM [...] / ANESTHESIA Anesthesia method: local infiltration us Dalila Tejada APRN, M.S.N. PROCEDURE/MINOR SURGICAL ORDERABLES Final Result * FL LUMBAR SPINE INTERLAMINAR EPIDURAL INJECTION (04/16/2024 1:45 PM PLANNING ENGINEER) Narrative Gigi Cruz M.D. - 04/16/2024 2:00 PM PLANNING ENGINEER Gigi Cruz M.D. 04/16/2024 1:46 PM FL Lumbar Spine Interlaminar Epidural Injection Performed by: Gigi Cruz M.D. Authorized by: Reed Rodriguez APRN, C.N.P., M.S.N. Care team members present 1. Yenny Chavez L.PAde PROCEDURE SUMMARY Indications: Radiculitis Pre-procedural pain: 6/10 [...] Spine without IV Contrast (04/11/2024 2:39 PM PLANNING ENGINEER) Anatomical Region Laterality Modality Lumbar Spine, Neuroradiology RST LOS, Neuroradiology ARZ LOS, Neuroradiology FLA LOS N/A Magnetic Resonance Impressions 04/11/2024 3:22 PM PLANNING ENGINEER 1. Mild levorotatory lumbar curvature with trace [...] helpful as appropriate. Narrative 04/11/2024 3:22 PM PLANNING ENGINEER EXAM: MR LUMBAR SPINE WITHOUT IV CONTRAST [...] Ray P.A.-C. LAB BLOOD ADD-ON Final Result [facility] [address] [place] [address], [place] [facility] [facility] [place] [facility] [place] [address] [place] [address] * T3 (Triiodothyronine), Total, Serum (03/02/2024 2:03 PM CDT) T3 (Triiodothyroni ne), Total, S 87 80 - 200 ng/dL 03/04/2024 10:45 AM CDT DTL Blood 03/02/2024 2:03 PM CDT 03/04/2024 10:13 AM CDT Blu Ray P.A.-C. LAB BLOOD NON ADD-ON F inal Result [facility] [address] [place] [address], [facility] DTL [place] [facility] [address] [place] [address] * (ABNORMAL) Thyroid Function [place] (03/02/2024 2:03 PM CDT) TSH, Sensitive 0.07(L) 0.3 - 4.2 mIU/L 03/02/2024 6:41 PM CDT OWAT Blood (Blood, Venous) 03/02/2024 2:03 PM CDT 03/02/2024 5:53 PM CDT Blu Ray P.A.-C. LAB BLOOD ADD-ON Final Result [facility] [address] [place] [address], [place] [facility] in [place] [address] [place] [address] * BI Breast Screening Bilateral with Tomosynthesis [...] correlated with patient's history, clinical presentation, and FORESTRY EXTENSION SPECIALIST cytology report. 12/01/2023 11:0 9 AM CDT 12/02/2023 7:43 AM CDT Blu Ray P.A.-C. LAB MICROBIOLOGY - GEN ERAL ORDERABLES Final Result [facility] [address] [place] [address], [facility]TO [address] [address] * (ABNORMAL) Lipid Panel (11/28/2023 9:34 AM [...] Ray P.A.-C. LAB BLOOD ADD-ON Final Result [facility] [address] [place] [address], [facility] OWAT [facility] [place] [address] [place] [address] * (ABNORMAL) Comprehensive Metabolic Panel (11/28/2023 9:34 [...] Ray P.A.-C. LAB BLOOD ADD-ON Final Result [facility] [address] [place] [address], [place] [facility] [facility] [place] [facility] [place] [address] [place] [address] * Cologuard-Sent Out Lab (12/29/2021 11:20 AM [...] screened with both Cologuard and colonoscopy. (Cj Richardson. et al, N Engl J Med 2014;370(14):0084-1875) The normal value (reference range) for this assay is negative. COLOGUARD RE-SCREENING RECOMMENDATION: Periodic colorectal cancer screening is an important part of preventive healthcare for asymptomatic individuals at average risk for colorectal cancer. Following a negative Cologuard result, the [place] Cancer Society and U.S. Multi-Society Task Force screening guidelines recommend a Cologuard re-screening interval of 3 years. References: [place] [employer] Society Guideline for Colorectal Cancer Screening: https://www.cancer.org/cancer/fmpuz-kcpjmw-zugkal/detection- diagnosis-staging/acs-recommendations.html.; Patricio FIGUEROA, Fuad HARRIS, Maricruz SHARIF, Colorectal Cancer Screening: Recommendations for Physicians and Patients from the U.S. Multi-Society Task Force on Colorectal Cancer Screening , Am J Gastroenterology 2017; 112:4164-3510. TEST DESCRIPTION: Composite algorithmic analysis of stool [...] Garner et al, N Engl J Med 2014;370(14):7835-1768.) Cologuard may produce a false negative or false positive result (no colorectal cancer or precancerous polyp present at colonoscopy follow up). A negative Cologuard test result does not guarantee the absence of CRC or advanced adenoma (pre-cancer). The current Cologuard screening interval is every 3 years. ([place] Cancer Society and U.S. Multi-Society Task Force). Cologuard performance data in a 10,000 patient pivotal study using colonoscopy as the reference method can be accessed at the following location: www.[employer]/results. Additional description of the Cologuard test process, warnings and precautions can be found at www.[employer].com. Stool (Stool) 12/29/2021 11: 20 AM CDT 12/31/2021 7:05 PM CDT us Blu Ray P.A.-C. LAB BODY FLUIDS AND ST OOLS ORDERABLES Final Result [facility] [address] [place] [address] [facility], [address] [place] [address] from Last 3 Months or Most Recently Relevant to Health Maintenance Insurance [facility] Care Teams Relationship Mgr Relationship Specialty Start Date End Date Blu Ray P.A.-C. [address] [place], [place] [address] [address] PCP - General Family Medicine 11/15/23
--- OUTSIDE RECORDS SUMMARY | 2024-04-30 11:18 | XMS_ITS | Encounter Summary ---
Author Organization [facility] Address [address] [place] [address] Care Team Providers Care Party Chief Name Role Phone Blu Ray P.A.-C. Primary Care Provider Reason for Referral * Outpatient (Routine) - Closed Specialty Diagnoses / Procedures Referred By Contac t Referred To Contact Diagnoses Radiculopathy Lumbar Procedures FL Lumbar Spine Interlaminar Epidural Injection Reed Rodriguez APRN, C.N.Lucille., M.S.N. [address] [place] [phone] Phone: tel: fax: [facility] Referral ID Status Reason Start Date Expiration Date Visits Re quested Visits Authorized [id number] Closed 04/13/2024 04/13/2025 1 1 TRIC POWERLINE EXAMINER Reason for Visit * Outpatient (Routine) - Closed Specialty Diagnoses / Procedures Referred By Contac t Referred To Contact Diagnoses Radiculopathy Lumbar Procedures FL Lumbar Spine Interlaminar Epidural Injection Reed Rodriguez APRN, C.N.P., M.S.N. [address] [place] [phone] Phone: tel: fax: [facility] Referral ID Status Reason Start Date Expiration Date Visits Re quested Visits Authorized [id number] Closed 04/13/2024 04/13/2025 1 1 Encounter Details Date Type Department Care Team (Latest Contact Info) Description 04/16/2024 12:53 PM ELECTRIC POWERLINE EXAMINER - 04/16/2024 11:59 PM ELECTRIC POWERLINE EXAMINER Hospital Encounter Division of Pain Medicine in [place], [place] [address] [place] [address] Reed Rodriguez, STACY, C.N.P., M.S.N. [address] [place] [phone] Radiculopathy Lumbar Discharge Disposition: Home or Self Care Social History Tobacco Use Types Packs/Day Years [...] often do you attend chur ch or congregation services? Patient declined 12/09/2021 Do you belong to any clubs o r organizations such as samaritan groups, unions, fraternal or athletic groups, or [...] Answer Date Recorded PHQ-2 Score 0 12/01/2023 [facility] [place] of Occupat ional Health - Occupational Stress [...] place to sleep or slept in a half-way (including now)? No 12/09/2021 Nutrition Answer Date [...] on file Legal Sex Female 1:43 PM ELECTRIC POWERLINE EXAMINER Gender Identity Not on file Sexual Orientation Not on file documented as of this encounter Last Filed Vital Signs Vital Sign Reading Time Taken Comments Blood Pressure 197/90 04/16/2024 1:51 PM ELECTRIC POWERLINE EXAMINER Pulse 55 04/16/2024 1:46 PM ELECTRIC POWERLINE EXAMINER Temperature 37.2 C (99 F) 04/16/2024 1:16 PM ELECTRIC POWERLINE EXAMINER Respiratory Rate 17 04/16/2024 1:16 PM ELECTRIC POWERLINE EXAMINER Oxygen Saturation 98% 04/16/2024 1:46 PM ELECTRIC POWERLINE EXAMINER Inhaled Oxygen Concentration - - Weight - - Height - - Body Mass Index - - documented in this encounter Medications at Time of Discharge aspirin 81 mg chewable tablet Chew 81 mg daily. 11/29/2021 atorvastatin (Lipitor) 10 mg tablet Take 1 tablet (10 mg total) by mouth daily. 90 tablet 3 12/01/2023 levothyroxine 137 mcg tablet Take 1 tablet (137 mcg total) by mouth daily. 90 tablet 3 03/05/2024 lisinopriL 40 mg tablet Take 1 tablet (40 mg total) by mouth daily. 90 tablet 3 04/09/2024 LORazepam (Ativan) 0.5 mg tablet Take 1-2 tablets (0.5-1 mg total) by mouth See Admin Instructions. Take 30 minutes prior to procedure. 2 tablet 04/09/2024 metoprolol succinate (Toprol XL) 50 mg 24 hr tablet Take 1 tablet (50 mg total) by mouth daily. Do not crush or chew. 90 tablet 3 12/01/2023 11/30/2024 nitroglycerin (NITROSTAT) 0.[address] 0.4 mg under the tongue. 11/28/2021 traZODone (DesyreL) 100 mg tablet Take 1 tablet (100 mg total) by mouth daily. 90 tablet 3 12/01/2023 11/30/2024 documented as of this encounter Procedure Notes * Gigi Cruz M.D. - 04/16/2024 2:00 PM CSTAssociated Order(s): FL Lumbar Spine Interlaminar Epidural Injection Pre-Procedure Diagnose(s): Radiculopathy Lumbar Post-Procedure Diagnose(s): Radiculopathy Lumbar FL Lumbar Spine Interlaminar Epidural Injection Performed [...] 0 Estimated blood loss: 0 Implants: 0 TRIC POWERLINE EXAMINER documented in this encounter Plan of Treatment Upcoming Encounters Date Type Department Care Team (Latest Contact Info) Description 05/08/2024 8:45 AM ELECTRIC POWERLINE EXAMINER Clinical Communication Virtual Review in [place], [place] 200 [place] [address] 05/09/2024 8:20 AM ELECTRIC POWERLINE EXAMINER Appointment Department of Laboratory Medicine in [address] [phone] Blu Ray, P.A.-C. [address] [place] [phone] 05/09/2024 1:30 PM ELECTRIC POWERLINE EXAMINER Telemedicine Division of Pain Medicine in [address] [phone] Reed Rodriguez APRN, C.N.P., M.S.N. [address] [place] [phone] 05/11/2024 11:30 AM ELECTRIC POWERLINE EXAMINER Office Visit Department of Family Medicine, [facility], in [address] [phone] Blu Ray, P.A.-C. [address] [place] [phone] documented as of this encounter Procedures Procedure Name Priority Date/Time Associated Diagnosis Comments FL LUMBAR SPINE INTERLAMINAR EPIDURAL INJECTION RAD - Routine (most inpatients and all outpatients) 04/16/2024 1:45 PM ELECTRIC POWERLINE EXAMINER Radiculopathy Lumbar documented in this encounter Results * FL LUMBAR SPINE INTERLAMINAR EPIDURAL INJECTION (04/16/2024 1:45 PM ELECTRIC POWERLINE EXAMINER) Narrative Gigi Cruz M.D. - 04/16/2024 2:00 PM ELECTRIC POWERLINE EXAMINER Gigi Cruz M.D. 04/16/2024 1:46 PM FL [...] 0 Estimated blood loss: 0 Implants: 0 [facility] Rodriguez APRN, C.N.P., M.S.N. IMG FLUOR OSCOPY PROCEDURES Final Result documented in this encounter Visit Diagnoses Diagnosis Radiculopathy Lumbar documented in this encounter Administered Medications Inactive Administered Medications - up to 3 most recent administrations Medication Order MAR Action Action Date Dose Rate Site betamethasone acetate & sodium phosphate injection 6 mg (Celestone Soluspan) 6 mg, injection, One-Time Injection, Starting on Tue04/16/24 at 1400, For 1 doseIndications:Radiculopathy Lumbar Given 04/16/2024 2:00 PM ELECTRIC POWERLINE EXAMINER 6 mg iohexoL 300 mg iodine/mL solution 1 mL (Omnipaque) 1 mL, injection, One-Time Injection, Starting on Tue04/16/24 at 1400, For 1 doseIndications:Radiculopathy Lumbar Given 04/16/2024 2:00 PM ELECTRIC POWERLINE EXAMINER 1 mL lidocaine 10 mg/mL (1 %) injection 1 mL (Xylocaine) 1 mL, injection, One-Time Injection, Starting on Tue04/16/24 at 1400, For 1 doseIndications:Radiculopathy Lumbar Given 04/16/2024 2:00 PM ELECTRIC POWERLINE EXAMINER 1 mL documented in this encounter Additional Health Concerns Assessment Noted Time PHQ-9 Depression Total Score: 8 07/23/19 17 3:01 PM ELECTRIC POWERLINE EXAMINER documented as of this encounter Care Teams Party Chief Relationship Specialty Start Date End Date Blu Ray P.A.-C. 300 [facility] [place] [phone] PCP - General Family Medicine 11/15/23 documented as of this encounter
--- OUTSIDE RECORDS SUMMARY | 2024-04-30 11:19 | XMS_ITS | Encounter Summary ---
Author Organization [facility] Address [address] [place] [address] Care Team Providers Care Tube Washer Name Role Phone Blu Ray P.A.-C. Primary Care Provider Reason for Referral * MRI/CAT/PET Scan (Routine) - Closed Specialty Diagnoses / Procedures Referred By Porfirio rutledge Referred To Contact Radiology Diagnoses Radiculopathy Lumbar Procedures MR Lumbar Spine without IV Contrast Blu Ray P.A.-CDiogo [address] [place] [address] Phone: tel: fax: [facility] Region Referral ID Status Reason Start Date Expiration Date Visits Re quested Visits Authorized [id number] Closed 04/09/2024 04/09/2025 1 1 RITY PATROL OFFICER Reason for Visit * MRI/CAT/PET Scan (Routine) - Closed Specialty Diagnoses / Procedures Referred By Porfirio rutledge Referred To Contact Radiology Diagnoses Radiculopathy Lumbar Procedures MR Lumbar Spine without IV Contrast Blu Ray P.A.-C. [address] [place] [address] Phone: tel: fax: [facility] Region Referral ID Status Reason Start Date Expiration Date Visits Re quested Visits Authorized [id number] Closed 04/09/2024 04/09/2025 1 1 Encounter Details Date Type Department Care Team (Latest Contact Info) Description 04/11/2024 1:49 PM SECURITY PATROL OFFICER - 04/11/2024 11:59 PM SECURITY PATROL OFFICER Hospital Encounter Department of Radiology in [place], [place] [address] [facility] [place] [address] Blu Ray P.A.-C. [address] [facility] [place] [address] Radiculopathy Lumbar Discharge Disposition: Home or Self [...] Answer Date Recorded PHQ-2 Score 0 12/01/2023 [facility] - Occupational Stress Questionnaire Answer Date [...] place to sleep or slept in a snf (including now)? No 12/09/2021 Nutrition Answer Date [...] on file Legal Sex Female 1:43 PM SECURITY PATROL OFFICER Gender Identity Not on file Sexual Orientation Not on file documented as of this encounter Medications at Time of Discharge [...] 12/01/2023 11/30/2024 documented as of this encounter Plan of Treatment Upcoming Encounters Date Type Department Care Team (Latest Contact Info) Description 05/08/2024 8:45 AM SECURITY PATROL OFFICER Clinical Communication Virtual Review in [place], [place] [address] [place] [address] 05/09/2024 8:20 AM SECURITY PATROL OFFICER Appointment Department of Laboratory Medicine in [place], [place] [address] [place] [phone] Blu Ray P.A.-C. [address] [place] [phone] 05/09/2024 1:30 PM SECURITY PATROL OFFICER Telemedicine Division of Pain Medicine in [place], [place] [address] [place] [address] Reed Rodriguez, STACY, C.N.P., M.S.N. [address] [place] [address] 05/11/2024 11:30 AM SECURITY PATROL OFFICER Office Visit Department of Family Medicine, [facility], in [place], [place] [address] [place] [address] Blu Ray P.A.-C. [address] [place] [address] documented as of this encounter Procedures Procedure Name Priority Date/Time Associated Diagnosis Comments MR LUMBAR SPINE WITHOUT IV CONTRAST RAD - Routine (most inpatients and all outpatients) 04/11/2024 2:39 PM SECURITY PATROL OFFICER Radiculopathy Lumbar documented in this encounter Results * MR Lumbar Spine without IV Contrast (04/11/2024 2:39 PM SECURITY PATROL OFFICER) Anatomical Region Laterality Modality Lumbar Spine, Neuroradiology RST LOS, Neuroradiology ARZ LOS, Neuroradiology FLA LOS N/A Magnetic Resonance Impressions 04/11/2024 3:22 PM SECURITY PATROL OFFICER 1. Mild levorotatory lumbar curvature with trace [...] helpful as appropriate. Narrative 04/11/2024 3:22 PM SECURITY PATROL OFFICER EXAM: MR LUMBAR SPINE WITHOUT IV CONTRAST [...] characterization with ultrasound may be helpful asappropriate. us Blu Ray P.A.-C. IMG MRI PROCEDURES Fin al Result documented in this encounter Visit Diagnoses Diagnosis Radiculopathy Lumbar documented in this encounter Additional Health Concerns Assessment Noted Time PHQ-9 Depression Total Score: 8 07/23/19 17 3:01 PM SECURITY PATROL OFFICER documented as of this encounter Care Teams Tube Washer Relationship Specialty Start Date End Date Blu Ray P.A.-C. [address] [place] [phone] PCP - General Family Medicine 11/15/23 documented as of this encounter
--- OUTSIDE RECORDS SUMMARY | 2024-04-30 11:19 | XMS_ITS | Encounter Summary ---
Author Organization [facility] Address [address] [place] [address] Care Team Providers Care Owner Professional Engineer Name Role Phone Blu Ray P.A.-C. Primary Care Provider Reason for Referral * Outpatient (Routine) - Authorized Specialty Diagnoses / Procedures Referred By Porfirio rutledge Referred To Contact Family Medicine Blu Ray P.A.-C. [address] [place] [address] Phone: tel: fax: [facility] Region Referral ID Status Reason Start Date Expiration Date V isits Requested Visits Authorized [id number] Authorized 03/05/2024 09/04/2025 1 1 Encounter Details Date Type Department Care Team (Late st Contact Info) Description 03/05/2024 Orders Only Department of Family Medicine, [facility], in [place], [place] [address] [place] [address] Blu Ray P.A.-C. [address] [place] [address] Hypothyroidism (Primary Dx) Social History Tobacco Use Types [...] often do you attend chur ch or shinto services? Patient declined 12/09/2021 Do you belong [...] Answer Date Recorded PHQ-2 Score 0 12/01/2023 [facility] - Occupational Stress Questionnaire Answer Date [...] on file Legal Sex Female 1:43 PM CLAY DRY PRESS HELPER Gender Identity Not on file Sexual Orientation Not on file documented as of this encounter Plan of Treatment Upcoming Encounters Date Type Department Care Team (Latest Contact Info) Description 05/08/2024 8:45 AM CLAY DRY PRESS HELPER Clinical Communication Virtual Review in [place], [place] [address] [place] [address] 05/09/2024 8:20 AM CLAY DRY PRESS HELPER Appointment Department of Laboratory Medicine in [place], [place] [address] [place] [phone] Blu Ray PJanell. [address] [place] [phone] 05/09/2024 1:30 PM CLAY DRY PRESS HELPER Telemedicine Division of Pain Medicine in [place], [place] [address] [place] [phone] Reed Rodriguez, STACY C.N.P., M.S.N. [address] [place] [phone] 05/11/2024 11:30 AM CLAY DRY PRESS HELPER Office Visit Department of Family Medicine, [facility], in [place], [place] [address] [place] [address] Blu Ray P.A.-C. [address] [place] [address] Scheduled Referrals Name Type Priority Associated Diagnoses Orde r Schedule Family Medicine office visit (clinic) Outpatient Referral Routine Expected: 06/06/2024, Expires: 06/04/2025 documented as of this encounter Visit Diagnoses Diagnosis Hypothyroidism- Primary documented in this encounter Additional Health Concerns Assessment Noted Time PHQ-9 Depression Total Score: 8 07/23/19 17 3:01 PM CLAY DRY PRESS HELPER documented as of this encounter Care Teams Owner Professional Engineer Relationship Specialty Start Date End Date Blu Ray P.A.-C. [address] [place] [phone] PCP - General Family Medicine 11/15/23 documented as of this encounter
--- OUTSIDE RECORDS SUMMARY | 2024-04-30 11:19 | XMS_ITS | Encounter Summary ---
Author Organization [facility] Address [address] [place] [address] Care Team Providers Care Model Maker Name Role Phone Blu Ray P.A.-C. Primary Care Provider Encounter Details Date Type Department Care Team (Latest Contact Info) Description 03/02/2024 10:10 AM CDT - 03/02/2024 11:59 PM CDT Hospital Encounter Department of Laboratory Medicine in [place], [place] [address] [place] [address] Blu Ray P.A.-C. [address] [place] [phone] Hyperlipidemia; Hypothyroidism; Atherosclerotic Heart Disease Of [place] Coronary Artery Without Angina Pectoris Discharge Disposition: Home or Self Care Social [...] How often do you attend chur or jew services? Patient declined 12/09/2021 Do you belong to any clubs o r organizations such as judaism groups, unions, fraternal or athletic groups, or [...] Answer Date Recorded PHQ-2 Score 0 12/01/2023 [facility] of Occupat ional Health - [...] place to sleep or slept in a alf (including now)? No 12/09/2021 Nutrition Answer Date [...] on file Legal Sex Female 1:43 PM VERIFICATION ENGINEER Gender Identity Not on file Sexual Orientation Not on file documented as of this encounter Medications at Time of Discharge aspirin 81 mg chewable tablet Chew 81 mg daily. 11/29/2021 atorvastatin (Lipitor) 10 mg tablet Take 1 tablet (10 mg total) by mouth daily. 90 tablet 3 12/01/2023 metoprolol succinate (Toprol XL) 50 mg 24 hr tablet Take 1 tablet (50 mg total) by mouth daily. Do not crush or chew. 90 tablet 3 12/01/2023 11/30/2024 nitroglycerin (NITROSTAT) 0.[address] 0.4 mg under the tongue. 11/28/2021 traZODone (DesyreL) 100 mg tablet Take 1 tablet (100 mg total) by mouth daily. 90 tablet 3 12/01/2023 11/30/2024 levothyroxine 150 mcg tablet Take 1 tablet (150 mcg total) by mouth every morning before breakfast. 90 tablet 3 12/01/2023 03/05/2024 lisinopriL 20 mg tablet Take 1 tablet (20 mg total) by mouth daily. 90 tablet 3 12/01/2023 04/09/2024 documented as of this encounter Plan of Treatment Upcoming Encounters Date Type Department Care Team (Latest Contact Info) Description 05/08/2024 8:45 AM VERIFICATION ENGINEER Clinical Communication Virtual Review in [place], [place] [address] [place] [address] 05/09/2024 8:20 AM VERIFICATION ENGINEER Appointment Department of Laboratory Medicine in [place], [place] [address] [place] [phone] Blu Ray, PDiogoA.-Izabella [address] [place] [phone] 05/09/2024 1:30 PM VERIFICATION ENGINEER Telemedicine Division of Pain Medicine in [place], [place] [address] [place] [phone] Reed Rodriguez, STACY, C.N.P., M.S.N. [address] [place] [phone] 05/11/2024 11:30 AM VERIFICATION ENGINEER Office Visit Department of Family Medicine, [facility], in [place], [place] [address] [place] [phone] Blu Ray P.A.-CDiogo [address] [place] [phone] documented as of this encounter Procedures Procedure Name Priority Date/Time Associated Diagnosis Comments KS T4 FREE Routine 03/02/2024 2:03 PM CDT KS T3 TOTAL Routine 03/02/2024 2:03 PM CDT THYROID FUNCTION CASCADE, S Routine 03/02/2024 2:03 PM CDT Hyperlipidemia Hypothyroidism Atherosclerotic Heart Disease Of [place] Coronary Artery Without Angina Pectoris documented in this encounter Results * T3 (Triiodothyronine), Total, Serum (03/02/2024 2:03 PM CDT) T3 (Triiodothyroni ne), Total, S 87 80 - 200 ng/dL 03/04/2024 10:45 AM CDT DTL Blood 03/02/2024 2:03 PM CDT 03/04/2024 10:13 AM CDT Blu Ray P.A.-C. LAB BLOOD NON ADD-ON F inal Result [facility] [address] [place] [address], [facility] DTL [facility] [address] [place] [address] * T4 (Thyroxine), Free, Serum (03/02/2024 2:03 PM CDT) T4 (Thyroxine), Free, S 1.3 0.9 - 1.7 ng/dL 03/02/2024 7:04 PM CDT OW Blood 03/02/2024 2:03 PM CDT 03/02/2024 5:53 PM CDT lBu Ray P.A.-C. LAB BLOOD ADD-ON Final Result [facility] [address] [place] [address], [place] OWAT [facility] [place] [address] [place] [address] * (ABNORMAL) Thyroid Function [place] (03/02/2024 2:03 PM CDT) TSH, Sensitive 0.07(L) 0.3 - 4.2 mIU/L 03/02/2024 6:41 PM CDT OWAT Blood (Blood, Venous) 03/02/2024 2:03 PM CDT 03/02/2024 5:53 PM CDT Blu L Roethler P.A.-C. LAB BLOOD ADD-ON Final Result [facility] [address] [place] [address], [facility] OWAT [facility] [place] [address] [place] [address] documented in this encounter Visit Diagnoses Diagnosis Hyperlipidemia Hypothyroidism Atherosclerotic Heart Disease Of [place] Coronary Artery Without Angina Pectoris documented in this encounter Additional Health Concerns Assessment Noted Time PHQ-9 Depression Total Score: 8 07/23/19 17 3:01 PM VERIFICATION ENGINEER documented as of this encounter Care Teams Model Maker Relationship Specialty Start Date End Date Blu Ray P.A.-C. [address] [place] [phone] PCP - General Family Medicine 11/15/23 documented as of this encounter
--- OUTSIDE RECORDS SUMMARY | 2024-04-30 11:19 | XMS_ITS | Encounter Summary ---
Author Organization [facility] Address [address] [place] [address] Care Team Providers Care Port Steward Name Role Phone Blu Ray P.A.-C. Primary Care Provider Reason for Referral * Outpatient (Routine) - Authorized Specialty Diagnoses / Procedures Referred By Porfirio rutledge Referred To Contact Family Medicine Blu Ray P.A.-C. [address] [place] [address] Phone: tel: fax: [facility] Referral ID Status Reason Start Date Expiration Date V isits Requested Visits Authorized [id number] Authorized 04/09/2024 10/09/2025 1 1 ET CRUSHER AND WASHER * Outpatient (Routine) - Closed Specialty Diagnoses / Procedures Referred By Porfirio rutledge Referred To Contact Pain Medicine Diagnoses Radiculopathy Lumbar Blu Ray P.A.-C. [address] [place] [address] Phone: tel: fax: [facility] Referral ID Status Reason Start Date Expiration Date Visits Re quested Visits Authorized [id number] Closed 04/09/2024 10/09/2025 1 1 ET CRUSHER AND WASHER * MRI/CAT/PET Scan (Routine) - Closed Specialty Diagnoses / Procedures Referred By Porfirio rutledge Referred To Contact Radiology Diagnoses Radiculopathy Lumbar Procedures MR Lumbar Spine without IV Contrast Blu Ray P.A.-C. [address] [facility] [place] [address] Phone: tel: fax: [facility] Region Referral ID Status Reason Start Date Expiration Date Visits Re quested Visits Authorized [id number] Closed 04/09/2024 04/09/2025 1 1 ET CRUSHER AND WASHER Reason for Visit * Reason Comments Back Pain Has had ongoing left side back pain that extends to left leg. Toes are numb. Having hard time sleeping.Does not have a lot of energy. Encounter Details Date Type Department Care Team (Latest Contact Info) Description 04/09/2024 10:30 AM CULLET CRUSHER AND WASHER Comprehensive Visit Department of Family Medicine, [facility], in [place], [place] [address] [facility] [place] [address] Blu Ray P.A.-C. [address] [place] [address] Radiculopathy Lumbar (Primary Dx); Hypertension Essential Primary; Hyperlipidemia; Hypothyroidism; Neuropathy Peripheral Social History Tobacco Use Types Packs/Day Years [...] week 12/09/2021 How often do you attend [facility] or judaism services? Patient declined 12/09/2021 Do you belong to any clubs o r organizations such as mu-ism groups, unions, fraternal or athletic groups, or [...] Answer Date Recorded PHQ-2 Score 0 12/01/2023 [facility] - Occupational Stress Questionnaire Answer Date [...] place to sleep or slept in a long-term (including now)? No 12/09/2021 Nutrition Answer Date [...] on file Legal Sex Female 1:43 PM CULLET CRUSHER AND WASHER Gender Identity Not on file Sexual Orientation Not on file documented as of this encounter Last Filed Vital Signs Vital Sign Reading Time Taken Comments Blood Pressure 180/128 04/09/2024 10:15 AM CULLET CRUSHER AND WASHER Pulse 73 04/09/2024 10:15 AM CULLET CRUSHER AND WASHER Temperature 35.8 C (96.4 F) 04/09/2024 10:06 AM CULLET CRUSHER AND WASHER Respiratory Rate 16 04/09/2024 10:0 6 AM CULLET CRUSHER AND WASHER Oxygen Saturation - - Inhaled Oxygen Concentration - - Weight 64.4 kg (141 lb 15.6 oz) 04/09/2024 10:06 AM CULLET CRUSHER AND WASHER Height 160 cm (5' 2.99) 04/09/2024 10: 06 AM CULLET CRUSHER AND WASHER with shoes on Body Mass Index 25.16 04/09/2024 10:06 AM CULLET CRUSHER AND WASHER documented in this encounter Progress Notes * Blu Ray P.A.-C. - 04/09/2024 10:30 AM CST SUBJECTIVE CHIEF COMPLAINT / REASON FOR VISIT Merna Hedrick is a 48 y.o. female who presents for evaluation of Back Pain (Has had ongoing left side back pain that extends to left leg. Toes are numb. Having hard time sleeping.Does not have a lot of energy. ). HISTORY OF PRESENT ILLNESS Merna presents today with a couple different issues. She has had some chronic back pain that has been really bothering her as of recently. She has had this injected in the past and she found it to be helpful. She is wondering about trying this again. She said that she has tried some stretching she has done physical therapy in the past as well. She also has significant hypertension today. She says that her pain might be contributing to this. She takes lisinopril 20 mg a day and previously thishad controlled her blood pressure pretty well. She says she checked it at home a few days ago and it was 150/90. She does have a history of heart disease it is important that we continue to modify her risk factors. She also recently had her TSH checked which was a little low. I believe this is likely over supplemented. I had called in a new prescription with his smaller dose of levothyroxine but she has not started taking this yet. This also could contribute to her hypertension. He describes a tingling sensation in her feet occasionally worse in the left side in the right she is wondering if this might be secondary to her back as well. Patient Active Problem List Diagnosis Hypothyroidism Hyperlipidemia Atypical Squamous Cells Undetermined Significance Cervix OBJECTIVE Vitals: 04/09/24 1006 04/09/24 1015 BP: (!) 190/129 (!) 180/128 BP Location: Right arm Right arm Patient Position: Sitting Sitting Cuff Size: Regular Regular Pulse: 75 73 Resp: 16 Temp: (!) 35.8 ??C TempSrc: Temporal Weight: 64.4 kg Height: 160 cm Body mass index is 25.16 kg/m??. PHYSICAL EXAMINATION In general she appears in no acute distress Heart: Regular rate rhythm Lungs: Clear to auscultation Back: She has discomfort to palpation over her lower lumbar region over L5-S1 and over the right sacroiliac joint. Lower extremities: She has good dorsiflexion and plantar flexion of her feet bilaterally. ASSESSMENT / PLAN #1 Radiculopathy Lumbar I am going to do an MRI of her lumbar spine and have her follow-up with pain Medicine in [place].Previously she has had good benefit from doing an injection we will repeat the MRI first and have her follow-up with [facility]. #2 Hypertension Essential Primary Blood pressure is suboptimally controlled today am going to double the dose of her lisinopril she is going to come and see me in about three weeks will recheck electrolyte panel at that time #3 Hyperlipidemia Lipids have been well controlled continue on her statin #4 Hypothyroidism We decreased the dose of her levothyroxine I will check a TSH when I see her back in follow-up #5 Neuropathy Peripheral I am going to check a pernicious anemia cascade as well. I will see her back in follow-up. If she has any questions or problems she will let us know. Total time spent 35 minutes Blu Ray P.A.-C. ET CRUSHER AND WASHER documented in this encounter Plan of Treatment Upcoming Encounters Date Type Department Care Team (Latest Contact Info) Description 05/08/2024 8:45 AM CULLET CRUSHER AND WASHER Clinical Communication Virtual Review in [place], [place] [address] [place] [address] 05/09/2024 8:20 AM CULLET CRUSHER AND WASHER Appointment Department of Laboratory Medicine in [address] [phone] Blu Ray P.A.-C. [address] [place] [phone] 05/09/2024 1:30 PM CULLET CRUSHER AND WASHER Telemedicine Division of Pain Medicine in [place], [place] [address] [place] [phone] Reed Rodriguez, STACY, C.N.P., M.S.N. [address] [place] [phone] 05/11/2024 11:30 AM CULLET CRUSHER AND WASHER Office Visit Department of Family Medicine, [facility], in [address] [phone] Blu Ray P.A.-C. [address] [place] [phone] Scheduled Orders Name Type Priority Associated Diagnoses Orde r Schedule Basic Metabolic Panel Lab Routine Hypertension Essential Primary Hyperlipidemia Hypothyroidism Neuropathy Peripheral Expected: 05/09/2024 (Approximate), Expires: 2025 Thyroid Function [facility] Routine Hypertension Essential Primary Hyperlipidemia Hypothyroidism Neuropathy Peripheral Expected: 05/09/2024 (Approximate), Expires: 2025 Pernicious Anemia [facility] Routine Hypertension Essential Primary Hyperlipidemia Hypothyroidism Neuropathy Peripheral Expected: 05/09/2024, Expires: 2025 CBC with Differential, Blood Lab Routine Hypertension Essential Primary Hyperlipidemia Hypothyroidism Neuropathy Peripheral Expected: 05/09/2024, Expires: 2025 Scheduled Referrals Name Type Priority Associated Diagnoses Order Schedule Pain Medicine - Spine consult (clinic) Outpatient Referral Routine Radiculopathy Lumbar Expected: 04/11/2024, Expires: 2025 Family Medicine office visit (clinic) Outpatient Referral Routine 1 Occurrence s starting 04/09/2024 until 2025 documented as of this encounter Results * MR Lumbar Spine without IV Contrast (04/11/2024 2:39 PM CULLET CRUSHER AND WASHER) Anatomical Region Laterality Modality Lumbar Spine, Neuroradiology RST LOS, Neuroradiology ARZ LOS, Neuroradiology FLA LOS N/A Magnetic Resonance Impressions 04/11/2024 3:22 PM CULLET CRUSHER AND WASHER 1. Mild levorotatory lumbar curvature with trace [...] helpful as appropriate. Narrative 04/11/2024 3:22 PM CULLET CRUSHER AND WASHER EXAM: MR LUMBAR SPINE WITHOUT IV CONTRAST [...] encounter Visit Diagnoses Diagnosis Radiculopathy Lumbar- Primary Hypertension Essential Primary Hyperlipidemia Hypothyroidism Neuropathy Peripheral Radiculopathy Lumbar documented in this encounter Additional Health Concerns Assessment Noted Time PHQ-9 Depression Total Score: 8 07/23/19 17 3:01 PM CULLET CRUSHER AND WASHER documented as of this encounter Care Teams Port Steward Relationship Specialty Start Date End Date Blu Ray P.A.-C. [address] [place] [phone] PCP - General Family Medicine 11/15/23 documented as of this encounter
--- OUTSIDE RECORDS SUMMARY | 2024-04-30 11:19 | XMS_ITS | Encounter Summary ---
Author Organization [facility] Address [address] [place] [address] Care Team Providers Care Environmental Consultant Name Role Phone Blu Ray P.A.-C. Primary Care Provider Encounter Details Date Type Department Care Team (Late st Contact Info) Description 03/05/2024 Orders Only Department of Family Medicine, [facility], in [place], [place] [address] [place] [address] Blu Ray P.A.-C. [address] [place] [phone] Social History Tobacco Use Types Packs/Day Years [...] often do you attend chur ch or mu-ism services? Patient declined 12/09/2021 Do you belong to any clubs o r organizations such as hoahaoism groups, unions, fraternal or athletic groups, or [...] Answer Date Recorded PHQ-2 Score 0 12/01/2023 [facility] - Occupational [...] place to sleep or slept in a prison (including now)? No 12/09/2021 Nutrition Answer Date [...] on file Legal Sex Female 1:43 PM WHEEL PRESS CLERK Gender Identity Not on file Sexual Orientation Not on file documented as of this encounter Plan of Treatment Upcoming Encounters Date Type Department Care Team (Latest Contact Info) Description 05/08/2024 8:45 AM WHEEL PRESS CLERK Clinical Communication Virtual Review in [place], [place] [address] [place] [address] 05/09/2024 8:20 AM WHEEL PRESS CLERK Appointment Department of Laboratory Medicine in [address] [phone] Blu Ray P.A.-C. [address] [place] [phone] 05/09/2024 1:30 PM WHEEL PRESS CLERK Telemedicine Division of Pain Medicine in [place], [place] [address] [place] [phone] Reed Rodriguez, STACY, C.N.P., M.S.N. [address] [place] [phone] 05/11/2024 11:30 AM WHEEL PRESS CLERK Office Visit Department of Family Medicine, [facility], in [address] [phone] Blu Ray P.A.-C. 300 [facility] [place] [phone] documented as of this encounter Visit Diagnoses Not on filedocumented in this encounter Additional Health Concerns Assessment Noted Time PHQ-9 Depression Total Score: 8 07/23/19 17 3:01 PM WHEEL PRESS CLERK documented as of this encounter Care Teams Environmental Consultant Relationship Specialty Start Date End Date Blu Ray P.A.-C. [address] [facility] [place] [phone] PCP - General Family Medicine 11/15/23 documented as of this encounter
== END 2024-04-30 11:42 | disposition home or self-care (01) ==
LOC: ED 11:15
PROVIDERS: Emergency Provider Family Medicine; PCP Physician Assistant
DX: M54.9 Dorsalgia, unspecified (principal)
CPT/HCPCS: 93005; 96372; 99284; J1885

== ENCOUNTER 2025-02-18 18:05 | Emergency (ER) | payer OTHER, SELFPAY ==
--- OUTSIDE RECORDS SUMMARY | 2025-01-07 15:53 | XMS_ITS | Encounter Summary ---
Author Organization [facility] Address [address] [place] [address] Care Team Providers Care Smoke Chaser Name Role Phone Blu Ray P.A.-C. Primary Care Provider Reason for Referral * Outpatient (Routine) - Closed Specialty Diagnoses / Procedures Referred By Porfirio rutledge Referred To Contact Diagnoses Screening Mammogram Breast Cancer Procedures BI Breast Screening Bilateral with Tomosynthesis Blu Ray P.A.-C. [address] [place] [address] Phone: tel: fax: [facility] Referral ID Status Reason Start Date Expiration Date Visits Re quested Visits Authorized [id number] Closed 12/20/2024 03/22/2026 1 1 Reason for Visit * Outpatient (Routine) - Closed Specialty Diagnoses / Procedures Referred By Porfirio rutledge Referred To Contact Diagnoses Screening Mammogram Breast Cancer Procedures BI Breast Screening Bilateral with Tomosynthesis Blu Ray P.A.-C. [address] [place] [address] Phone: tel: fax: [facility] Region Referral ID Status Reason Start Date Expiration Date Visits Re quested Visits Authorized [id number] Closed 12/20/2024 03/22/2026 1 1 Encounter Details Date Type Department Care Team (Latest Contact Info) Description 01/07/2025 3:53 PM CDT - 01/07/2025 11:59 PM CDT Hospital Encounter Department of Radiology in [place], [place] [address] [phone] Blu Ray P.A.-C. [address] [phone] Screening Mammogram Breast Cancer Discharge Disposition: Home or Self Care Social History Tobacco Use Types Packs/Day Years Used Date Smoking Tobacco: Former Cigarettes 0.5 66.8 S tarted: 06/06/1986 Passive Smoke Exposure: Past Smokeless Tobacco: Never Alcohol Use Standard Drinks/Week Comments Yes 1 (1 standard drink = 0.6 oz pur e alcohol) [facility] Utilities Answer Date Recorded In the past 12 months has e electric, gas, oil, or water company threatened to shut off services in your home? No 05/09/2024 Hunger Vital Sign Answer Date Recorded Within the past 12 months, y ou worried that your food would run out before you got the money to buy more. Never true 05/09/20 24 Within the past 12 months, t he food you bought just didn't last and you didn't have money to get more. Never true 05/09/2024 PRAPARE - Transportation Answer Date Re corded In the past 12 months, has l ack of transportation kept you from medical appointments or from getting medications? No 09/2023 In the past 12 months, has l ack of transportation kept you from meetings, work, or from getting things needed for daily living? No 05/09/2024 Housing Stability Answer Date Recorded What is your living situation today? I have a [facility] place to live 05/09/2024 Education Answer Date Recorded What is the highest level of school you have completed or the highest degree you have received? 12th grade 12/09/2021 Comments No Sex and Gender Information Value Date Recorded Sex Assigned at Female 05/09/2024 1:09 PM STEEL POURER HELPER Legal Sex Female 1:43 PM STEEL POURER HELPER Gender Identity Female 05/09/2024 1:09 PM STEEL POURER HELPER Sexual Orientation Straight 05/09/2024 1: 09 PM STEEL POURER HELPER documented as of this encounter Medications at Time of Discharge aspirin 81 mg chewable tablet Chew 81 mg daily. 11/29/2021 atorvastatin (Lipitor) 10 mg tablet Take 1 tablet (10 mg total) by mouth daily. 90 tablet 3 12/05/2024 cyanocobalamin (vitamin B-12) 1,000 mcg tablet Take 1 tablet (1,000 mcg total) by mouth daily. 90 tablet 3 12/05/2024 12/05/2025 estradioL (Vivelle-Dot) 0.05 mg/[address] 1 patch on the skin 2 (two) times a week. 8 patch 3 12/06/2024 levothyroxine 125 mcg tablet Take 1 tablet (125 mcg total) by mouth daily. 90 tablet 3 12/05/2024 lisinopriL 40 mg tablet Take 1 tablet (40 mg total) by mouth daily. 90 tablet 3 12/05/2024 metoprolol succinate (Toprol XL) 50 mg 24 hr tablet Take 1 tablet (50 mg total) by mouth daily. Do not crush or chew. 90 tablet 3 12/05/2024 12/05/2025 nitroglycerin (Nitrostat) 0.[address] 1 tablet (0.4 mg total) under the tongue every 5 (five) minutes as needed for chest pain. 25 tablet 12/05/2024 progesterone (Prometrium) 100 mg capsule Take 1 capsule (100 mg total) by mouth at bedtime. 90 capsule 3 12/05/2024 traZODone (DesyreL) 100 mg tablet Take 1 tablet (100 mg total) by mouth daily. 90 tablet 3 12/05/2024 documented as of this encounter Plan of Treatment Not on file documented as of this encounter Procedures Procedure Name Priority Date/Time Associated Diagnosis Comments BI BREAST SCREENING BILATERAL WITH TOMOSYNTHESIS RAD - Routine (most inpatients and all outpatients) 01/07/2025 4:13 PM CDT Screening Mammogram Breast Cancer documented in this encounter Results * BI Breast Screening Bilateral with Tomosynthesis (01/07/2025 4:13 PM CDT) Anatomical Region Laterality Modality Breast, Breast Imaging RST L OS, Breast Imaging ARZ LOS, Breast Imaging FLA LOS Bilateral Mammography Impressions 01/07/2025 4:43 PM CDT Negative. RECOMMENDATION: Annual Screening Mammogram ASSESSMENT: BI-RADS: 1: Negative. Narrative 01/07/2025 4:43 PM CDT EXAM: BI BREAST SCREENING BILATERAL WITH TOMOSYNTHESIS Current study was evaluated with a Computer Aided Detection (CAD) system. INDICATION: Screening mammogram. COMPARISON: Prior exam(s) were available and reviewed for comparison. DENSITY: b. There are scattered areas of fibroglandular density. FINDINGS: No mammographic findings of malignancy. Procedure Note Rustam Salinas M.D. - 01/07/2025 EXAM: BI BREAST SCREENING BILATERAL WITH TOMOSYNTHESIS [...] P.A.-C. IMG BI PROCEDURES Trinidad l Result documented in this encounter Visit Diagnoses Diagnosis Screening Mammogram Breast Cancer documented in this encounter Additional Health Concerns Assessment Noted Time PHQ-9 Depression Total Score: 8 07/23/19 17 3:01 PM STEEL POURER HELPER documented as of this encounter Care Teams Smoke Chaser Relationship Specialty Start Date End Date Blu Ray P.A.-C. [address] [place] [phone] PCP - General Family Medicine 11/15/23 documented as of this encounter
--- OUTSIDE RECORDS SUMMARY | 2025-02-18 18:08 | XMS_ITS | Clinical Summary ---
Author Organization [facility] Address [address] [place] [id number] Care Team Providers Care Java Lead Name Role Phone Pcp, No Primary Care Provider Unavailabl e Allergies No known active allergies Medications levothyroxine (SYNTHROID) 150 mcg tabletIndications:h ypothyroidism Take 1 Tablet (150 mcg) by mouth before breakfast. 30 Tablet 1 1 Active traZODone (DESYREL) 100 mg tabletIndications:i nsomnia associated with depression Take 100 mg by mouth at bedtime. Active lisinopriL (PRINIVIL; ZESTRIL) 20 mg tabletIndications:H TN (hypertension) Take 1 Tablet (20 mg) by mouth 2 times daily. 60 Tablet 11/28/2021 4:40 PM CDT 2 Active aspirin chewable 81 mg chewable tabletIndications:N STEMI (non-ST elevated myocardial infarction) (HC) Chew 1 Tablet (81 mg) by mouth once daily. 1 Tablet 2 Active atorvastatin (LIPITOR) 40 mg tabletIndications:N STEMI (non-ST elevated myocardial infarction) (HC),Hyperlipidemia , unspecified hyperlipidemia type Take 1 Tablet (40 mg) by mouth at bedtime. 30 Tablet 11/28/2021 4:40 PM CDT 2 Active isosorbide mononitrate (IMDUR) 30 mg extended release tablet 24 HourIndications:HTN (hypertension),NSTE VA (non-ST elevated myocardial infarction) (HC) Take 1 Tablet (30 mg) by mouth once daily. 30 Tablet 11/28/2021 4:40 PM CDT 2 Active nitroglycerin (NITROSTAT) 0.4 mg sublingual tabletIndications:N STEMI (non-ST elevated myocardial infarction) (HC) Place 1 Tablet (0.4 mg) under the tongue every 5 minutes if needed for Chest Pain. 25 Tablet 11/28/2021 4:40 PM CDT 2 Active ticagrelor (BRILINTA) 90 mg tabletIndications:N STEMI (non-ST elevated myocardial infarction) (HC) Take 1 Tablet (90 mg) by mouth 2 times daily. 60 Tablet 11/28/2021 4:40 PM CDT 2 Active carvediloL (COREG) 6.25 mg tabletIndications:H TN (hypertension),NSTE VA (non-ST elevated myocardial infarction) (HC) Take 1 Tablet (6.25 mg) by mouth 2 times daily with meals. 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 Gender Identity Not on file Sexual Orientation [...] age 15-65 1988 Hepatitis C screening for ag e 18-79 1991 Hepatitis B series for 19+ ( 1 of 3 - 19+ 3-dose series) 1992 Colonoscopy through age 75 2018 Mammogram for age 45-75 2018 Tetanus booster 11/11/2019 11/10/2009 BMI (ht and wt on same day) for age 18+ 09/22/2021 09/22/2020, 08/10/2017, 02/16/2017, Additional history exists Depression screening for age 12+ 10/09/2021 10/09/2020, 10/06/2020, 08/10/2017 Pneumococcal series for age 50+ (1 of 1 - PCV) 2023 Zoster (shingles) series for age 50+ (1 of 2) 2023 Pap test for age 21-65 09/23/2023 09/22/2020, 2020 COVID-19 vaccine series ( - 2023- season) 2025 Influenza Vaccine (#1) 2025 Lipids for age 45-75 11/26/2026 11/26/2021 RSV vaccine for adults or (1 - 1-dose 75+ series) 2048 Procedures Procedure Name Priority Date/Time Associated Diagnosis Comments LIPID PANEL Early AM 11/26/2021 3:19 AM CDT PIPE FITTER SUPERVISOR MAINTENANCE THIN PREP PAP SCREEN IMAGED Routine 09/22/2020 2:28 PM CDT Pap smear for cervical cancer screening from Last 3 Months or Most Recently Relevant to Health Maintenance Results * LIPID PANEL (11/26/2021 3:19 AM CDT) CHOLESTEROL,TOTAL 173 100 - 199 mg/dL 11/26/2021 3:48 AM CDT [facility] TRIGLYCERIDES 93 <150 mg/dL 11/26/2021 3:48 AM CDT [facility] HDL CHOLESTEROL 54 >40 mg/dL 3:48 AM CDT [facility] NON-HDL CHOLESTEROL 119 <145 mg/dl 11/26/2021 3:48 AM CDT [facility] CHOL/HDL RATIO 3.20 <4.50 11/26/2021 3:48 AM CDT [facility] LDL CHOLESTEROL 100 <=130 mg/dL 11/26/2021 3:48 AM CDT [facility] VLDL CHOLESTEROL 19 <=30 mg/dL 11/26/2021 3:48 AM CDT [facility] PROVIDER ORDERED STATUS RANDOM 11/26/2021 3:48 AM CDT [facility] Blood BLOOD SPECIMEN / Unknown Venipuncture / Unknown 11/26/2021 3:19 AM CDT 11/26/2021 3:25 AM CDT us Graham rFey DO CHEMISTRY Fi nal Result [facility] SENDOUT [place]NAL ZIP [address] [place] [id number] * PIPE FITTER SUPERVISOR MAINTENANCE THIN PREP PAP SCREEN IMAGED (09/22/2020 2:28 PM CDT) Case Report Gynecologic Cytology Report Case: [id number] Authorizing Provider: Gladys Plummer MD Collected: 09/22/2020 1428 Ordering Location: [facility] Received: 09/22/2020 1440 Clinic First Screen: Gris Villalba Rescreen: Agnieszka Sanchez Pathologist: Gin Jimenez MD Specimen: PIPE FITTER SUPERVISOR MAINTENANCE ThinPrep Vial Screening, Cervical 10/03/2020 4:37 PM CDT [facility] INTERPRETATION/ RESULT NEGATIVE FOR INTRAEPITHELIAL LESION OR MALIGNANCY (NIL) (none) 10/03/2020 4:37 PM CDT [facility] at 1637 CDT ORGANISM(S) Shift in saul suggestive of bacterial vaginosis 10/03/2020 4:37 PM CDT [facility] OTHER Endometrial cells in a woman more than 45 years of age. 10/03/2020 4:37 PM CDT [facility] EDUCATIONAL NOTES & SUGGESTIONS Endometrial cells after the age of 45, particularly out of phase or after menopause, may be associated with benign endometrium, hormonal alterations and less commonly with endometrial uterine abnormalities. Clinical correlation is recommended. 10/03/2020 4:37 PM CDT [facility] SPECIMEN ADEQUACY Satisfactory for evaluation Endocervical component present 10/03/2020 4:37 PM CDT [facility] HPV REQUEST HPV and PAP 10/03/2020 4:37 PM CDT [facility] Date of LMP irregular 10/03/2020 4:37 PM CDT [facility] [employer] [facility] Last Pap Date 07/201610/03/2020 4:37 PM CDT [facility] Last Pap Result [facility] 4:37 PM CDT [facility] Abnormal Pap or Quebeck Bx in last 5 years Yes 10/03/2020 4:37 PM CDT [facility] [employer] Menstrual Status Irregular Periods 10/03/2020 4:37 PM CDT [facility] Quebeck Bx Done Today No 10/03/2020 4:37 PM CDT [facility] Additional Information JADE 1 on colposcopy 08/201610/03/2020 4:37 PM CDT [facility] Comment: Cytology is screened at [facility] - [address], [place] [address] and [facility] - [address], [place] [address] and [facility] - [address] [place] [address] Interpreted at [facility] - [address], [place] [address] Automated Review Successful 10/03/2020 4:37 PM CDT [facility] Comment:Specimen processed s uccessfully by automated urban gardening specialist device, ThinPrep Imaging System, [employer] ANCILLARY TESTING PIPE FITTER SUPERVISOR MAINTENANCE HPV Ordered, Please see separate report 10/03/2020 4:37 PM CDT [facility] Note The pap test is [...] and malignant lesions. 10/03/2020 4:37 PM CDT [facility] Other (Cervical) Non-Blood / Unknown 09/22/2020 2:28 PM CDT 09/22/2020 2:40 PM CDT us Gladys Plummer MD PATHOLOGY/CYTOLOGY Final Re sult [facility] [address] [place] [address], [place] from Last 3 Months or Most [...] 10:23 AM 08/18/2016 4:55 PM Care Teams Java Lead Relationship Specialty Start Date End Date Pcp, No . PCP - General 08/05/22
--- OUTSIDE RECORDS SUMMARY | 2025-02-18 18:09 | XMS_ITS | Encounter Summary ---
Author Organization [facility] Address [address] [place] [address] Care Team Providers Care Linoleum Mechanic Name Role Phone [facility] P.A.-C. Primary Care Provider Reason for Visit * Reason Onset Date Comments Quality 02/18/2025 HTN Encounter Details Date Type Department Care Team (Late st Contact Info) Description 02/18/2025 Clinical Communication Department of Family Medicine, [facility], in [place], [place] [address] [place] [address] Blu Ray P.A.-C. [address] [place] [address] Quality (HTN) Social History Tobacco Use Types Packs/Day Years Used Date Smoking Tobacco: Former Cigarettes 0.5 66.8 S tarted: 06/06/1986 Passive Smoke Exposure: Past Smokeless Tobacco: Never Alcohol Use Standard Drinks/Week Comments Yes 1 (1 standard drink = 0.6 oz pur e alcohol) [facility] Utilities Answer Date Recorded In the past 12 months has [email or web address] electric, gas, oil, or water company threatened [...] living situation today? I have a [facility] place to live 05/09/2024 Education Answer Date Recorded What is the highest level of school you have completed or the highest degree you have received? 12th grade 12/09/2021 Comments No Sex and Gender Information Value Date Recorded Sex Assigned at Female 05/09/2024 1:09 PM DRAFTER CASTINGS Legal Sex Female 1:43 PM DRAFTER CASTINGS Gender Identity Female 05/09/2024 1:09 PM DRAFTER CASTINGS Sexual Orientation Straight 05/09/2024 1: 09 PM DRAFTER CASTINGS documented as of this encounter Miscellaneous Notes * Telephone Encounter - Ingris Aldridge R.N. - 02/18/2025 3:19 PM CDT Left message for patient to return call to clinic. Does the patient need to speak to nursing? no Action needed: Please ask if patient has been monitoring her blood pressure at home. If so, ask forher most recent readings (please collect the dates also). If not, please ask patient to monitor at home and either call or send in readings via her portal. documented in this encounter Plan of Treatment Not on file documented as of this encounter Visit Diagnoses Not on filedocumented in this encounter Additional Health Concerns Assessment Noted Time PHQ-9 Depression Total Score: 8 07/23/19 17 3:01 PM DRAFTER CASTINGS documented as of this encounter Care Teams Linoleum Mechanic Relationship Specialty Start Date End Date Blu Ray P.A.-C. [address] [facility] [phone] PCP - General Family Medicine 11/15/23 documented as of this encounter
--- OUTSIDE RECORDS SUMMARY | 2025-02-18 18:09 | XMS_ITS | Clinical Summary ---
Author Organization [facility] Address [address] [place] [address] Care Team Providers Care Website Optimization Strategist Name Role Phone Blu Ray P.A.-C. Primary Care Provider Source Comments Patient records contain information from all sites at [facility]. For routine questions regarding patient records, call [phone] during business hours, M-F 8:00 AM - 5:00 PM Central Time. Record requests for emergency care only can be directed to [phone] at any time.[facility] Allergies No known active allergies Medications aspirin 81 mg chewable tablet Chew 81 mg daily. 11/29/2021 Active nitroglycerin (Nitrostat) 0.[address] 1 tablet (0.4 mg total) under the tongue every 5 (five) minutes as needed for chest pain. 25 tablet 12/05/2024 Active atorvastatin (Lipitor) 10 mg tablet Take 1 tablet (10 mg total) by mouth daily. 90 tablet 3 12/05/2024 Active cyanocobalamin (vitamin B-12) 1,000 mcg tablet Take 1 tablet (1,000 mcg total) by mouth daily. 90 tablet 3 12/05/2024 Active levothyroxine 125 mcg tablet Take 1 tablet (125 mcg total) by mouth daily. 90 tablet 3 12/05/2024 Active lisinopriL 40 mg tablet Take 1 tablet (40 mg total) by mouth daily. 90 tablet 3 12/05/2024 Active metoprolol succinate (Toprol XL) 50 mg 24 hr tablet Take 1 tablet (50 mg total) by mouth daily. Do not crush or chew. 90 tablet 3 12/05/2024 Active traZODone (DesyreL) 100 mg tablet Take 1 tablet (100 mg total) by mouth daily. 90 tablet 3 12/05/2024 Active estradioL (Vivelle-Dot) 0.05 mg/[address] 1 patch on the skin 2 (two) times a week. 8 patch 3 12/06/2024 Active progesterone (Prometrium) 100 mg capsule Take 1 capsule (100 mg total) by mouth at bedtime. 90 capsule 3 12/05/2024 Active Active Problems Problem Noted Date Diagnosed Date Hypertension Essential Primary 12/05/2024 Pain Back 05/11/2024 Coronary Artery Disease Without Angina Pectoris 05/11/2024 Deficiency Vitamin B12 05/11/2024 Atypical Squamous Cells Undetermined Significanc e Cervix [...] Encounters Date Type Department Care Team Description 02/18/2025 Clinical Communication Department of Family Medicine, [facility], in [address] [phone] Blu Ray, P.A.-C. Quality (HTN) 01/07/2025 3:53 PM CDT - 01/07/2025 11:59 PM CDT Hospital Encounter Department of Radiology in [address] [address] Blu Ray, P.A.-C. Screening Mammogram Breast Cancer Discharge Disposition: Home or Self Care 01/01/2025 Orders Only Department of Pulmonary Medicine in [place], [place] [address] [place] [address] Carlee Donato M.D. 12/06/2024 Orders Only Department of Family Medicine, [facility], in [place], [place] [address] [place] [address] Blu Ray P.A.-CDiogo Screening Cancer Colon 12/05/2024 11:30 AM CDT Office Visit Department of Family Medicine, [facility], in [place], [place] [address] [place] [address] Blu Ray P.A.-C. Coronary Artery Disease Without Angina Pectoris (Primary Dx); Deficiency Vitamin B12; Hypothyroidism; Hyperlipidemia; Hypertension Essential Primary; Screening Cancer Colon; Menopause; Neuropathy Peripheral; General Medical Examination Adult; Pain Back 12/04/2024 Orders Only [facility] Blu Ray P.A.-C. Screening Mammogram Breast Cancer 11/30/2024 9:37 AM CDT - 11/30/2024 11:59 PM CDT Hospital Encounter Department of Laboratory Medicine in [address] [phone] Blu Ray P.A.-C. Hyperlipidemia; Hypothyroidism; Atherosclerotic Heart Disease Of [place] Coronary Artery Without Angina Pectoris Discharge Disposition: Home or Self Care from Last 3 Months Immunizations Immunization Administration Dates Next Due Tdap 12/09/2021,11/10/2009 Family History Medical History Relation Name Comments Hypertension Father Max Stroke Grandmother paternal Relation Name Status Comments Father Max Alive Grandmother paternal Mother Alive Social History Tobacco Use Types Packs/Day Years Used Date Smoking Tobacco: Former Cigarettes 0.5 66.8 S tarted: 06/06/1986 Passive Smoke Exposure: Past Smokeless Tobacco: Never Alcohol Use Standard Drinks/Week Comments Yes 1 (1 standard drink = 0.6 oz pur e alcohol) [facility] Utilities Answer Date Recorded In the past 12 months has [employer], gas, oil, or water [employer] threatened to shut off services in your [...] your living situation today? I have a [facility] place to live 05/09/2024 Education Answer Date Recorded What is the highest level of school you have completed or the highest degree you have received? 12th grade 12/09/2021 Comments No Sex and Gender Information Value Date Recorded Sex Assigned at Female 05/09/2024 1:09 PM FITNESS CENTRE MANAGER Legal Sex Female 1:43 PM FITNESS CENTRE MANAGER Gender Identity Female 05/09/2024 1:09 PM FITNESS CENTRE MANAGER Sexual Orientation Straight 05/09/2024 1: 09 PM FITNESS CENTRE MANAGER Last Filed Vital Signs Vital Sign Reading Time Taken Comments Blood Pressure 143/89 12/05/2024 11:08 AM CDT Pulse 68 12/05/2024 11:08 AM CDT Temperature 36.4 C (97.5 F) 12/05/2024 11:08 AM CDT Respiratory Rate 20 12/05/2024 11:0 8 AM CDT Oxygen Saturation 98% 04/16/2024 1:46 PM FITNESS CENTRE MANAGER Inhaled Oxygen Concentration - - Weight 63.5 kg (139 lb 15.9 oz) 025 11:08 AM CDT Height 160 cm (5' 2.99) 12/05/2024 11: 08 AM CDT Body Mass Index 24.8 12/05/2024 11:08 AM CDT Plan of Treatment Health Maintenance Due Date Last Done Comments CT Colonography 1973 Colonoscopy 1973 FIT 1973 HIV Screening 1973 Hepatitis C Screening 1973 Hepatitis B Vaccines (1 of 3 - 19+ 3-dose series) 1992 Pneumococcal vaccine (50+ years) (1 of 2 - PCV) 1992 Zoster Vaccines (1 of 2) 2023 Cologuard 12/29/2024 12/29/2021 Colorectal Cancer Screening 12/29/2024 COVID-19 Vaccine (1 - season) 2025 Influenza Vaccine (#1) 2025 Office Visit for Blood Pressure Check / Re-check 03/07/2025 12/05/2024 Creatinine Level (Kidney Function Test) 11/30/2025 11/30/2024, 05/09/2024, 11/28/2023, Additional history exists Potassium Level 11/30/2025 11/30/2024, 09/2023, 11/28/2023, Additional history exists Sodium Level 11/30/2025 11/30/2024, 1209/2023, 11/28/2023, Additional history exists Thyroid Stimulating Hormone (TSH) test for thyroid function 11/30/2025 11/30/2024, 05/09/2024, 03/02/2024, Additional history exists Visit: Chronic Disease, age 18+ 12/05/2025 12/05/2024 Mammogram 01/07/2026 01/07/2025, 12/04, 12/23/2021, Additional history exists Fasting Glucose for Diabetes Screening 12/01/2027 11/30/2024, 05/09/2024, 11/28/2023, Additional history exists Cervical/Vaginal Cancer Screening 11/30/2028 12/01/2023, 12/01/2023, 07/23/2016, Additional history exists Lipid (Cholesterol) Screening 11/30/2029 11/30/2024, 11/28/2023, 11/26/2021, Additional history exists DTaP,Tdap,and Td Vaccines (3 - Td or Tdap) 12/10/2031 12/09/2021, 11/10/2009 Depression Screening (Annual PHQ-2) Completed 12/05/2024, 12/05/2024 IPV Vaccines Aged Out No longer eligi ble based on patient's age to complete this topic Medical Devices Implanted Type Area Criminal Records Technician Device Identifier Shelf Expiration Date Model / Serial / Lot Cardiac Stent Cardiac Stent Left: Heart Cardiac Stent Cardiac Stent Left: Heart Hardware E.G. Pins/Screws/R ods Hardware e.g. pins/screws/ rods Right: Ankle Procedures Procedure Name Priority Date/Time Associated Diagnosis Comments BI BREAST SCREENING BILATERAL WITH TOMOSYNTHESIS RAD - Routine (most inpatients and all outpatients) 01/07/2025 4:13 PM CDT Screening Mammogram Breast Cancer THYROID FUNCTION CASCADE, S Routine 11/30/2024 9:49 AM CDT Hyperlipidemia Hypothyroidism Atherosclerotic Heart Disease Of [place] Coronary Artery Without Angina Pectoris COMPREHENSIVE METABOLIC PANEL, S/P Routine 11/30/2024 9:49 AM CDT Hyperlipidemia Hypothyroidism Atherosclerotic Heart Disease Of [place] Coronary Artery Without Angina Pectoris LIPID PANEL, S Routine 11/30/2024 9:49 AM CDT Hyperlipidemia Hypothyroidism Atherosclerotic Heart Disease Of [place] Coronary Artery Without Angina Pectoris HPV WITH GENOTYPING, PCR, THINPREP Routine 12/01/2023 11:09 AM CDT COLOGUARD Routine 12/29/2021 11:20 AM CDT Screening Cancer Colon from Last 3 Months or Most Recently Relevant to Health Maintenance Results * BI Breast Screening Bilateral with [...] mammographic findings of malignancy. Procedure Note Rustam Salians M.D. - 01/07/2025 EXAM: BI BREAST SCREENING BILATERAL WITH TOMOSYNTHESIS Current study was evaluated with a Computer Aided Detection (CAD) system. INDICATION: Screening mammogram. COMPARISON: Prior exam(s) were available and reviewed for comparison. DENSITY: b. There are scattered areas of fibroglandular density. FINDINGS: No mammographic findings of malignancy. IMPRESSION: Negative. RECOMMENDATION: Annual Screening Mammogram ASSESSMENT: BI-RADS: 1: Negative. us Blu Ray P.A.-C. IMG BI PROCEDURES Trinidad l Result * (ABNORMAL) Lipid Panel (11/30/2024 9:49 AM CDT) Triglycerides 133 mg/dL 11/30/2024 11:02 AM CDT OWAT Comment: ----REFERENCE VALUE---- Normal: <150 mg/dL Borderline High: 150-199 mg/dL High: 200-499 mg/dL Very High: > or =500 mg/dL Cholesterol, Total 214(H) mg/dL 2024 11:02 AM CDT OWAT Comment: ----REFERENCE VALUE---- Desirable: < 200 mg/dL Borderline High: 200 - 239 mg/dL High: > or = 240 mg/dL Cholesterol, LDL, Calculated 125 mg/dL 11/30/2024 11:02 AM CDT OWAT Comment: ----REFERENCE VALUE---- Desirable: <100 mg/dL Above Desirable: 100-129 mg/dL Borderline High: 130-159 mg/dL High: 160-189 mg/dL Very High: >=190 mg/dL ----ADDITIONAL INFORMATION---- LDL cholesterol calculated using the Hernandez/NIH equation. Cholesterol, HDL 66 >=50 mg/dL 11/30/2024 11:02 AM CDT OWAT Cholesterol, Non-HDL, Calculated 148 mg/dL 11/30/2024 11:02 AM CDT OWAT Comment: ----REFERENCE VALUE---- Desirable: <130 mg/dL Above Desirable: 130-159 mg/dL Borderline High: 160-189 mg/dL High: 190-219 mg/dL Very High: > or =220 mg/dL Fasting (8 HR or more) Unknown 11/30/2024 9:49 AM CDT OWAT Blood (Blood, Venous) 11/30/2024 9:49 AM CDT 11/30/2024 10:32 AM CDT Blu Ray P.A.-C. LAB BLOOD ADD-ON Final Result Performing Organization Address [facility] Co de Phone Number [facility] [address] [place] [address], [facility] OWAT [facility] [place] [address] [place] [id number] * Thyroid Function [place] (11/30/2024 9:49 AM CDT) TSH, Sensitive 0.3 0.3 - 4.2 mIU/L 11/30/2024 1:17 PM CDT OWAT Blood (Blood, Venous) 11/30/2024 9:49 AM CDT 11/30/2024 12:45 PM CDT Blu Ray P.A.-C. LAB BLOOD ADD-ON Final Result Performing Organization Address [facility] Co de Phone Number [facility] [address] [place] [address], [facility] OWAT [facility] [place] [address], [place] [address] * Comprehensive Metabolic Panel (11/30/2024 9:49 AM CDT) Potassium, P 4.4 3.6 - 5.2 mmol/L 11/30/2024 11:02 AM CDT OWAT Sodium, P 138 135 - 145 mmol/L 11/30/2024 11:02 AM CDT OWAT Chloride, P 101 98 - 107 mmol/L 11/30/2024 11:02 AM CDT OWAT Bicarbonate, P 27 22 - 29 mmol/L 11/30/2024 11:02 AM CDT OWAT Anion Gap, P 10 7 - 15 11/30/2024 11:02 AM CDT OWAT BUN (Blood Urea Nitrogen), P 13 6 - 21 mg/dL 11/30/2024 11:02 AM CDT OWAT Creatinine 0.85 0.59 - 1.04 mg/dL 11/30/2024 11:02 AM CDT OWAT Estimated GFR (eGFR) 83 >=60 mL/min/BS A 11/30/2024 11:02 AM CDT OWAT Comment: Estimated GFR calculated using the 2020 CKD_EPI creatinine equation. Calcium, Total, P 9.6 8.6 - 10.0 mg/dL 11/30/2024 11:02 AM CDT OWAT Glucose, P 98 70 - 140 mg/dL 11/30/2024 11:02 AM CDT OWAT Protein, Total, P 7.6 6.3 - 7.9 g/dL 11/30/2024 11:02 AM CDT OWAT Albumin, P 4.1 3.5 - 5.0 g/dL 11/30/2024 11:02 AM CDT OWAT Aspartate Aminotransferase (AST), P 38 8 - 43 U/L 11/30/2024 11:02 AM CDT OWAT Alkaline Phosphatase, P 96 35 - 104 U/L 11/30/2024 11:02 AM CDT OWAT Alanine Aminotransferase (ALT), P 20 7 - 45 U/L 11/30/2024 11:02 AM CDT OWAT Bilirubin, Total, P 0.2 0.0 - 1.2 mg/dL 11/30/2024 11:02 AM CDT OWAT Blood (Blood, Venous) 11/30/2024 9:49 AM CDT 11/30/2024 10:32 AM CDT us Blu Ray P.A.-C. LAB BLOOD ADD-ON Final Result [facility] [address] [place] [address], [place] OWAT [facility] [place] [address] [place] [address] * HPV with Genotyping, PCR, ThinPrep (12/01/2023 [...] correlated with patient's history, clinical presentation, and HYDROMETEOROLOGIST cytology report. 12/01/2023 11:0 9 AM CDT 12/02/2023 7:43 AM CDT Blu Ray P.A.-C. LAB MICROBIOLOGY - GEN ERAL ORDERABLES Final Result [facility] [place] [address], [facility] [place] [address] [place] [id number] * Cologuard-Sent Out Lab (12/29/2021 11:20 AM [...] (Cj Curtis al, N Engl J Med 2014;370(14):2742-9625) The normal value (reference range) for this assay is negative. COLOGUARD RE-SCREENING RECOMMENDATION: Periodic colorectal cancer screening is an important part of preventive healthcare for asymptomatic individuals at average risk for colorectal cancer. Following a negative Cologuard result, the [place] [employer] Society and U.S. Multi-Society Task Force screening guidelines recommend a Cologuard re-screening interval of 3 years. References: [place] [employer] Guideline for Colorectal Cancer Screening: https://www.cancer.org/cancer/zokbj-wrphke-wdwpva/detection- diagnosis-staging/acs-recommendations.html.; Patricio DK, Fuad HARRIS, Maricruz GoodeK, Colorectal Cancer Screening: Recommendations for Physicians and Patients from the U.S. Multi-Society Task Force on Colorectal Cancer Screening , Am J Gastroenterology 2017; 112:2481-3333. TEST DESCRIPTION: Composite algorithmic analysis of stool [...] Garner et al, N Engl J Med 2014;370(14):5930-9398.) Cologuard may produce a false negative or false positive result (no colorectal cancer or precancerous polyp present at colonoscopy follow up). A negative Cologuard test result does not guarantee the absence of CRC or advanced adenoma (pre-cancer). The current Cologuard screening interval is every 3 years. ([place] [employer] and U.S. Multi-Society Task Force). Cologuard performance data in a 10,000 patient pivotal study using colonoscopy as the reference method can be accessed at the following location: www.WorkingPoint/results. Additional description of the Cologuard test process, warnings and precautions can be found at www.cologuard.com. Stool (Stool) 12/29/2021 11: 20 AM CDT 12/31/2021 7:05 PM CDT us Blu Ray P.A.-C. LAB BODY FLUIDS AND ST OOLS ORDERABLES Final Result [facility] [address] [place] [id number] [employer] [address] [place] [address], [address] [place] [address] from Last 3 Months or Most Recently Relevant to Health Maintenance Insurance [facility] [place] [address] Care Teams Website Optimization Strategist Relationship Specialty Start Date End Date Blu Ray P.A.-C. [address] [place] [phone] PCP - General Family Medicine 11/15/23
[2025-02-18 19:00] VITALS: BP 217/148; PULSE 97; RESP 18; TEMP 36.7; O2SAT 97; BMI 26.1
--- NOTE | 2025-02-18 19:04 | CRLHL7_ITS ---
For Patients: As a result of the Cures Act, medical imaging exams and procedure reports are released immediately into your electronic medical record. You may view this report before your referring provider. If you have questions, please contact your health care provider. Indication: fall, left knee pain Technique: Three views of the left knee. Comparison: None. Findings: No acute displaced fracture or malalignment. Trace knee joint effusion. Minimal degenerative changes of the patellofemoral joint. Impression: No acute displaced fracture or malalignment. Trace knee joint effusion. Dictated by Karlo Aguilar MD @ 02/18/2025 7:42:45 PM (Electronically Signed)
[2025-02-18 20:17] VITALS: BP 191/110; PULSE 76; RESP 18; O2SAT 97
--- NOTE | 2025-02-18 20:19 | ED.LOWEXIN ---
HPI - Extremity Injury (Lower) General Time Seen by Provider: 20:19 Date Seen: 02/18/25 Chief Complaint: Extremity Pain/Injury, Lower Stated Complaint: hurt left knee Time Seen by Provider: 02/18/25 20:09 Source: patient and RN notes reviewed Mode of arrival: ambulatory Limitations: no limitations History of Present Illness HPI Narrative: This 49yo female injured her left knee Tuesday night stepping down off of a deck. It was in the dark, she went down losing her balance and fell on front of the knee. It feels swollen and painful in front and on the inside of the knee. She cannot say that there is sense of instability in the knee but she does feel occasional that something just feels different. She has had no fevers or chills, not feeling ill. She has been using antibiotic ointment to the scab overlying the knee. It hurts to walk or bear weight but otherwise if her leg is up and resting, will feel much better. Nursing staff ordered knee x-rays during triage appropriately. Was able to share with the patient that the x-rays were read by Radiology as negative for fracture. Patient's blood pressure was elevated here but she has not taken her antihypertensive medicines last night or this morning. MD complaint: knee injury Related Data Home Medications ?Medication ?Instructions ?Recorded ?Confirmed aspirin 81 mg chewable tablet 81 mg PO DAILY 12/02/21 12/12/24 (Aspirin Childrens) atorvastatin 40 mg tablet 40 mg PO HS 12/02/21 12/12/24 levothyroxine 150 mcg capsule 150 mcg PO DAILY 12/02/21 12/12/24 lisinopril 20 mg tablet 10 mg PO BID 12/02/21 12/12/24 nitroglycerin 0.4 mg sublingual 0.4 mg sublingual Q5-15M PRN 12/02/21 12/12/24 tablet carvedilol 12.5 mg tablet 12.5 mg PO BID 06/21/22 12/12/24 trazodone 100 mg tablet 100 mg PO QPM 04/30/24 12/12/24 estradiol 0.05 mg/24 hr semiweekly 1 patch topical 2XW 12/12/24 12/12/24 transdermal patch Allergies Allergy/AdvReac Type Severity Reaction Status Date / Time No Known Drug Allergies Allergy Verified 12/12/24 10:02 Review of Systems Status of ROS: Reports: 6 or more systems reviewed and unremarkable except as noted in History and below [facility] Medical History Erosion of transobturator mid-urethral sling ?T83.712A - Erosion of implanted urethral mesh to surrounding organ or tissue, initial encounter (ICD-10) Surgical History History of cholecystectomy ?Z90.49 - Acquired absence of other specified parts of digestive tract (ICD-10) History of tubal ligation ?Z98.51 - Tubal ligation status (ICD-10) Social History Smoking Status: Former smoker Do you use any of these nicotine containing products: None Second hand tobacco smoke exposure: No How often do you have a drink containing alcohol: never How often do you have six or more drinks on one occasion: Never AUDIT-C Alcohol total score: 0 Non-prescribed substance use: denies use service: No Exam Const: Vital Signs, click to edit/add: Vital Signs - 24 hr 02/18/25 19:00 02/18/25 20:17 Temperature 98.0 F Pulse Rate [Pulse Oximeter] 97 76 Respiratory Rate 18 18 Blood Pressure [Ri ght Upper Arm] 217/148 H 191/110 H Pulse Oximetry 97 97 Oxygen Delivery Me thod Room Air Room Air This 49-year-old female is alert, interactive, no apparent distress. She is seen in exam room 4. She looks comfortable resting in the chair, has the foot rest up an legs are elevated. She has a superficial scab overlying the front of her left knee overlying the patella. There is pinkish discoloration with some warmth. Is not intensely erythematous. There is definitely fluid. Patella is below the fluid, seems tender just in general because of the fluid., feels like the patella is intact. I can flex and extend the knee. Any testing that stresses the medial collateral ligament causes her definite increase in pain. Lateral collateral ligament seems to be intact. There is more swelling overlying this medial knee but none over the lateral. She can straight leg raise. I really cannot do any Sherrill's testing, causes her pain. There is no popliteal fossa masses or swelling. Feels like there is an endpoint with best attempt I could at testing ACL. Documenting provider has reviewed patient's vital signs: yes Course Course ED Course: Patient and I discussed her imaging is negative for fracture but does not mean that she has insisting ligamentous injury which could include things like her medial collateral, possible underlying cartilage tears. She still possibly could have trauma to the ACL or PCL. She may need follow-up MR imaging which would be ordered by Orthopedics. I am also concerned by the swelling with the warmth. We did review that traumatic swelling sometimes can be like this but given that she has a superficial abrasion over the area, I feel we should cover with antibiotics. We discussed watching this closely to make sure it is not worsening, if there is a bursal infection, often they do have to go in and irrigate which is surgical. We will get her knee immobilizer and crutches, provide her the information to follow up with Orthopedics. Vital Signs Vital signs: Initial Vital Signs Temperature 98.0 F 02/18/25 19:00 Temperature Source Temporal Artery Scan 02/18/25 19:00 Pulse Rate 97 02/18/25 19:00 Pulse Rhythm Regular 02/18/25 19:00 Respiratory Rate 18 02/18/25 19:00 Blood Pressure 217/148 H 02/18/25 19:00 Blood Pressure Mean 171 H 02/18/25 19:00 Blood Pressure Position Sitting 02/18/25 19:00 Pulse Oximetry 97 02/18/25 19:00 Oxygen Delivery Method Room Air 02/18/25 19:00 Vital Signs Temperature 98.0 F 02/18/25 19:00 Pulse Rate 97 02/18/25 19:00 Respiratory Rate 18 02/18/25 19:00 Blood Pressure 217/148 H 02/18/25 19:00 Pulse Oximetry 97 02/18/25 19:00 Oxygen Delivery Method Room Air 02/18/25 19:00 Temperature 98.0 F 02/18/25 19:00 Pulse Rate 76 02/18/25 20:17 Respiratory Rate 18 02/18/25 20:17 Blood Pressure 191/110 H 02/18/25 20:17 Pulse Oximetry 97 02/18/25 20:17 Oxygen Delivery Method Room Air 02/18/25 20:17 MDM - Extremity Injury (Lower) Imaging Data XR left knee: Attestation: I have reviewed the pertinent imaging results. Radiologist's impression: Patient: KINGS ALVARADO Facility:?[facility] Patient ID:?[id number] Site Patient ID:?[id number]. Site :?[id number] Study:?XRay-Knee Left 33V-02/18/2025 7:27:35 PM Ordering Physician:?PROVIDER TEMP Final Report: Indication: fall, left knee pain Technique: Three views of the left knee. Comparison: None. Findings: No acute displaced fracture or malalignment. Trace knee joint effusion. Minimal degenerative changes of the patellofemoral joint. Impression: No acute displaced fracture or malalignment. Trace knee joint effusion. Dictated by Karlo Aguilar MD @ 02/18/2025 7:42:45 PM (Electronic Signature) Discharge Plan Discharge Clinical Impression: Acute pain of left knee Patient Disposition: Home, Self-Care Condition: Stable Instructions: Knee Pain (ED) Additional Instructions: Use knee immobilizer and crutches as needed for pain-free weight-bearing. Can take the knee immobilizer off at rest when elevating. Start the Keflex 5 mg 3 times a day, 20 tablets provided from [employer]. You need to watch this knee closely, if the redness is increasing, develops fevers, feel there is worsening infection, need to return to the ER. Can use Tylenol and/or ibuprofen as needed for pain management, follow bottle directions for dosing. Need to call Orthopedic office to get scheduled for follow-up, call 1st thing in the morning. Phone number for their office is [phone]. Prescriptions: No Action estradiol 0.05 mg/24 hr patch semiweekly 1 patch topical 2XW carvedilol 12.5 mg tablet 12.5 mg PO BID trazodone 100 mg tablet 100 mg PO QPM aspirin [Aspirin Childrens] 81 mg tablet,chewable 81 mg PO DAILY atorvastatin 40 mg tablet 40 mg PO HS nitroglycerin 0.4 mg tablet, sublingual 0.4 mg sublingual Q5-15M PRN Rx Instructions: do not exceed 3 doses per episode lisinopril 20 mg tablet 10 mg PO BID levothyroxine 150 mcg capsule 150 mcg PO DAILY Follow Up/Referrals: Roethler,Blu, PA-C [Primary Care Provider, Family Practice] Stand Alone Forms: [email or web address] Info Instructions
== END 2025-02-18 20:58 | disposition home or self-care (01) ==
PROVIDERS: Emergency Provider Family Medicine; PCP Physician Assistant
DX: M25.562 Pain in left knee (principal)
CPT/HCPCS: 73562; 99283

== ENCOUNTER 2025-02-25 12:39 | Outpatient (CLI) | payer OTHER, SELFPAY ==
--- NOTE | 2025-02-25 13:00 | MR_ITS ---
[address] [address] Phone:?[phone] Fax:?[phone] Referring Physician Information: Yennifer Salmeron [address] [facility] [address] Phone:?[phone] Fax:?[phone] Patient:?Merna Hedrick D.O.B:?1975 Sex:?Female Phone:?[phone] [facility] MRN:?[id number] Exam Date:?02/25/2025 EXAM: MRI OF THE LEFT KNEE CLINICAL INFORMATION: The patient is a 49-year-old with left knee pain. Evaluate for internal derangement. PRIOR SURGERY: None reported. COMPARISON STUDIES: Comparison is made to prior radiographs dated 02/18/2025. TECHNICAL INFORMATION: Imaging was performed on a high-field, 1.5 Bea MR scanner. Axial proton-density and fat-suppressed T2 imaging of the left knee was performed in addition to sagittal proton-density and fat-suppressed proton- density imaging. Coronal proton-density and STIR imaging was also produced. FINDINGS: Articular/Extraarticular collections: Effusion: Mild to moderate. Popliteal cyst: None. Loose bodies: None. Subcutaneous and extraarticular soft tissues: Nonspecific subcutaneous soft tissue edema and/or hemorrhage can be seen circumferentially about the knee, but most prominently along the anterior aspect of the knee at the level of the patella and distal quadriceps tendon. No well-defined subcutaneous soft tissue fluid collections are seen to suggest hematoma or abscess. Osseous structures: No evidence for marrow edema or cortical injury. No evidence for fracture or stress injury. No evidence for destructive bony lesion. Ligamentous structures: ACL: Intact and normal in appearance. PCL: Intact and normal in appearance. MCL: Intact and normal in appearance. LCL: Intact and normal in appearance. Posterolateral corner: Intact and normal in appearance. Posteromedial corner: No posteromedial corner soft tissue injury. Semimembranosus and pes anserine tendons demonstrate no tendinopathy or associated bursitis. Extensor mechanism/Patellar retinacular structures: Patellar tendon: Intact, without tendinopathy. Quadriceps tendon: Intact, without tendinopathy. Retinacula: The medial and lateral retinacula are intact. The medial patellofemoral ligament is intact. Medial compartment: Medial meniscus: No evidence for medial meniscal tearing can be seen. There is no evidence for parameniscal cyst formation. No meniscocapsular separation injury is identified. Medial femoral condyle: No chondromalacia, chondral defect, or osteochondral abnormality. Medial tibial plateau: No chondromalacia, chondral defect, or osteochondral abnormality. Lateral compartment: Lateral meniscus: No evidence for lateral meniscal tearing is present. No evidence for parameniscal cyst formation can be seen. Lateral femoral condyle: No chondromalacia, chondral defect, or osteochondral abnormality. Lateral tibial plateau: No chondromalacia, chondral defect, or osteochondral abnormality. Patellofemoral compartment: Patella: Grade II chondromalacia of the medial patellar facet can be seen. No full-thickness patellar chondral defects are identified. Trochlea: No chondromalacia, chondral defect, or osteochondral abnormality. Neurovascular: No definite neurovascular abnormalities are seen. CONCLUSION: 1. No acute bony abnormalities about the left knee are seen. 2. No well-defined medial or lateral meniscal tearing is present. 3. Chondromalacia of the medial patellar facet. No full-thickness chondral defects about the knee are noted. 4. Subcutaneous soft tissue edema and/or hemorrhage can be seen about the knee as described above. 5. The cruciate and collateral ligaments appear intact. 6. Mild to moderate knee joint effusion. [facility]EC Electronically signed on 02/26/2025 10:06:00 AM by Severo Lea M.D.
== END 2025-02-25 12:40 | disposition home or self-care (01) ==
LOC: MRI 12:40
PROVIDERS: PCP Physician Assistant; Visit Provider Physician Assistant
DX: M25.562 Pain in left knee (principal); M22.42 Chondromalacia patellae, left knee; M25.462 Effusion, left knee; S89.92XA Unspecified injury of left lower leg, initial encounter
CPT/HCPCS: 73721